=== PATIENT | female | born 1950 | race Caucasian/White ===

== ENCOUNTER 2020-04-07 01:23 | Emergency (ER) | payer MEDICARE, BC ==
[2020-04-07] MEDS ORDERED: Oxymetazoline 0.05% Nasal Spray 15 ML Bottle NAS ONE (01:39)
--- NOTE | 2020-04-07 01:50 | EDM.PDOC ---
ED HPI GENERAL MEDICAL PROBLEM - General Chief Complaint: ENT Problem Stated Complaint: BLOODY NOSE; STAGE 4 CANCER PT Time Seen by Provider: 04/07/20 01:24 Source of Information: Reports: Patient History Limitations: Reports: No Limitations - History of Present Illness INITIAL COMMENTS - FREE TEXT/NARRATIVE: 69-year-old female with a past medical history of COPD, CAD status post stenting , paroxysmal atrial fibrillation, stage IV lung cancer presenting with epistaxis. Patient has known severe thrombocytopenia and anemia and is scheduled to have platelet and packed red blood cell transfusions this morning at about 9 AM. This evening, she developed a left-sided nosebleed around 11 PM. She was unable to get it to stop with holding pressure, so she presents to the emergency department for further evaluation. No prior history of nosebleeds. Denies hemoptysis, gingival bleeding, hematemesis, hematuria, or rectal bleeding. At present she denies any shortness of breath or difficulty handling her secretions. - Related Data Allergies Allergy/AdvReac Type Severity Reaction Status Date / Time morphine AdvReac Intermediate Nausea and Verified 04/07/20 01:40 Vomiting oxycodone [Oxycodone] AdvReac Intermediate Nausea and Verified 04/07/20 01:40 Vomiting Quiana Anesthesia Allergy Vomiting Uncoded 04/07/20 01:40 Home Meds: Home Meds amLODIPine [Norvasc] 1 tab PO BEDTIME 07/24/14 [History] Albuterol [Proair HFA] 2 inh INH ASDIRECTED PRN 09/11/14 [History] Dextromethorphan/guaiFENesin [Mucinex DM ER 600-30 MG] 1 tab PO DAILY 09/11/14 [ History] Ubidecarenone [Co Q-10] 1 tab PO DAILY 09/11/14 [History] Docusate Sodium [Colace] 100 mg PO BID #60 cap 09/15/14 [Rx] Ondansetron [Zofran] 4 mg PO Q8H #30 tab 09/15/14 [Rx] Ipratropium [Atrovent HFA] 1 puff INH TID 01/05/20 [History] Allopurinol [Zyloprim] 1 tab PO BID 04/07/20 [History] Budesonide/Formoterol Fumarate [Symbicort 80-4.5 MCG] 2 puff INH BID 04/07/20 [ History] Diphenhyd/Lidocaine/Nystatin [Magic Mouthwash] 1 dose PO ASDIRECTED PRN [History] Docusate Sodium [Colace] 1 cap PO BEDTIME 04/07/20 [History] Folic Acid 1 tab PO DAILY 04/07/20 [History] HYDROmorphone [Dilaudid] 1 tab PO ASDIRECTED PRN 04/07/20 [History] LORazepam [Ativan] 1 tab PO ASDIRECTED PRN 04/07/20 [History] Metoprolol Tartrate 75 mg PO DAILY 04/07/20 [History] Nystatin 4,000 units PO ASDIRECTED PRN 04/07/20 [History] Omeprazole 20 mg PO DAILY 04/07/20 [History] Vitamin B6-pyridOXINE 1 tab PO BEDTIME 04/07/20 [History] guaiFENesin/Dextromethorphan [Mucinex DM ER 1,200-60 MG] 1 tab PO ASDIRECTED 01/22 [History] Past Medical History Cardiovascular History: Reports: Hypertension, SC, Stents Respiratory History: 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, COPD Other Respiratory History: Stage IV lung cancer - Infectious Disease History Infectious Disease History: Reports: Measles, Mumps - Past Surgical History Cardiovascular Surgical History: Reports: Carotid Stents Respiratory Surgical History: Reports: None Musculoskeletal Surgical History: Reports: Hip Replacement, Knee Replacement, Shoulder Surgery Social & Family History - Family History Family Medical History: Unobtainable - Caffeine Use Caffeine Use: Reports: Coffee, Tea ED ROS ENT - Review of Systems Review Of Systems: See Below Constitutional: Denies: Fever HEENT: Reports: Nosebleed Respiratory: Denies: Shortness of Breath Cardiovascular: Denies: Chest Pain Endocrine: Reports: No Symptoms GI/Abdominal: Denies: Abdominal Pain : Denies: Hematuria Musculoskeletal: Denies: Back Pain Skin: Reports: Bruising Neurological: Denies: Headache Psychiatric: Reports: No Symptoms Hematologic/Lymphatic: Reports: No Symptoms Immunologic: Reports: No Symptoms ED EXAM, ENT - Physical Exam Exam: See Below Text/Narrative:: Vital signs reviewed. Nursing notes reviewed. Constitutional: Awake, alert, non-distressed. Head: Normocephalic, atraumatic. Eyes: EOMI, conjunctiva normal, no discharge, no scleral icterus. Ears, Nose, Throat: Oozing blood in left nare. External ears and ears normal, moist oral mucosa. Palatal petechiae and subungual ecchymosis noted. Cardiovascular: 2+ radial pulse, capillary refill less than 2 seconds. Pulmonary: normal work of breathing, no accessory muscle use. Abdomen/GI: Soft, nontender, nondistended, no guarding or rigidity, no masses. Musculoskeletal: No deformities. Integumentary: Appropriate color for ethnicity, warm, dry, no pallor or jaundice , no rash. Neurologic: Alert, answering questions appropriately, normal speech, no facial droop, moving all extremities well. Psychiatric: Appropriate mood and affect, normal thought process. ED ENT PROCEDURES - Epistaxis Procedure Indication: Epistaxis Recent anticoagulants/antiplatlets: No Uncontrolled HTN: No Recent septal/nasal surgery: No Site of bleeding: Left Nare Clearing of clots: Patient Blew Nose Topical Meds: Other (Oxymetazoline) Ice pack to area: No Complications: No Complication Description: Instructed patient to blow nose to expel clots. Nasal oxymetazoline was instilled in both nares, then a nasal clamp was applied with hemostasis achieved. Course - Vital Signs Text/Narrative:: Patient [hemodynamically stable, afebrile], well-appearing, looks nontoxic. Differential diagnosis includes but is not limited to: Thrombocytopenia, anemia , sphenopalatine artery bleed, anterior epistaxis, digital trauma, etc. CBC performed from this morning shows a white blood cell count of 1.37, hemoglobin 7.8, platelet count of 9000. She is hemodynamically stable and her epistaxis seemed fairly minor, so we did not repeat these labs this morning. Patient has a slow amount of residual epistaxis on examination. She was instructed to blow out the clots in her nose, then nasal oxymetazoline was instilled in both nostrils and a foam nasal clamp was applied with adequate hemostasis. She was monitored for approximately 30 minutes after this and did not have recurrence of epistaxis. She is stable to discharge home and will follow up with her scheduled blood product transfusions this morning. Plan: Patient is stable to discharge home with outpatient primary care follow- up. Strict emergency department return precautions were provided, patient indicated understanding. All questions were answered prior to departure. Discharged in good condition. Last Recorded V/S: Last Vital Signs Temp 35.5 C L 04/07/20 01:39 Pulse 90 04/07/20 02:13 Resp 18 04/07/20 02:13 BP 125/65 04/07/20 02:13 Pulse Ox 93 L 04/07/20 02:13 - Orders/Labs/Meds Meds: Medications Discontinued Medications Generic Name Dose Route Start Last Admin [place] Name Cruz PRN Reason Stop Dose Admin Oxymetazoline HCl 1 ml 04/07/20 01:39 04/07/20 02:04 Afrin Original 0.05% Nasal [place] JERI 04/07/20 01:40 1 spray ONETIME ONE Administration Departure - Departure Time of Disposition: 02:14 Disposition: Home, Self-Care 01 Condition: Good Clinical Impression: Epistaxis, Thrombocytopenia Lung cancer Qualifiers: Laterality: unspecified laterality Lung location: unspecified part of lung Qualified Code(s): C34.90 - Malignant neoplasm of unspecified part of unspecified bronchus or lung - Discharge Information *PRESCRIPTION DRUG MONITORING PROGRAM REVIEWED*: Not Applicable *COPY OF PRESCRIPTION DRUG MONITORING REPORT IN PATIENT SIDNEY: Not Applicable Instructions: Nosebleed, Adult Referrals: Reed Núñez MD [Primary Care Provider] - 1 Week (As needed for follow-up of symptoms.) Forms: ED Department Discharge Additional Instructions: Thank you for choosing the [facility] emergency department in [place] for your medical needs today. It was a pleasure caring for you. You were seen in the emergency department for a nosebleed. We sprayed Afrin in your nostrils and then applied a nasal clamp and this seemed to help. If your nosebleed starts again after you go home, I recommend that you blow your nose deeply to try to get out any clots, then spray Afrin 3 times in each nostril, and then apply the nasal clamp. Wait at least 30 minutes before you remove the clamp to see if the bleeding has stopped. If this is not successful , I recommend that you return to the emergency department to be reevaluated. Please return the emergency department immediately if your symptoms worsen or if you feel worse. The following information is given to patients seen in the emergency department who are being discharged. This information is to outline your options for follow -up care. We provide all patients seen in our emergency department with a follow -up referral. The need for follow-up, as well as the timing and circumstances, are variable depending upon the specifics of your emergency department visit. If you don't have a primary care physician on staff, we will provide you with a referral. We always advise you to contact your personal physician following an emergency department visit to inform them of the circumstance of the visit and for follow-up with them and/or the need for any referrals to a consulting specialist. The emergency department will also refer you to a specialist when appropriate. This referral assures that you have the opportunity for follow-up care with a specialist. All of these measure are taken in an effort to provide you with optimal care, which includes your follow-up. Under all circumstances we always encourage you to contact your private physician who remains a resource for coordinating your care. When calling for follow-up care, please make the office aware that this follow-up is from your recent emergency room visit. If for any reason you are refused follow-up, please contact the [facility] Emergency Department at and asked to speak to the emergency department charge nurse. If you do not have a primary care physician that is caring for you, you can contact these clinics below to set up an appointment to establish care: [facility] - Primary Care [address] [place] [address] [place] [address] Sepsis Event Note - Focused Exam Vital Signs: Vital Signs Temp Pulse Resp BP Pulse Ox 04/07/20 02:13 90 18 125/65 93 L 04/07/20 01:39 35.5 C L 86 20 137/67 92 L Date Exam was Performed: 04/07/20 Time Exam was Performed: 02:19
== END 2020-04-07 02:20 | disposition home or self-care (01) ==
LOC: MW.ED 01:23
DX: R04.0 Epistaxis (principal); D69.6 Thrombocytopenia, unspecified; C34.90 Malignant neoplasm of unspecified part of unspecified bronchus or lung; I25.10 Atherosclerotic heart disease of native coronary artery without angina pectoris; I10 Essential (primary) hypertension; J44.9 Chronic obstructive pulmonary disease, unspecified; I25.2 Old myocardial infarction; Z88.5 Allergy status to narcotic agent; Z88.4 Allergy status to anesthetic agent; Z95.5 Presence of coronary angioplasty implant and graft; Z79.899 Other long term (current) drug therapy
CPT/HCPCS: 99283

== ENCOUNTER 2020-04-20 19:13 | Inpatient (IN) | payer MEDICARE, BC, OTHER ==
[2020-04-20] MEDS ORDERED: Albuterol/Ipratropium 3.0-0.5 MG/3 ML Neb Soln ONE (19:17)
[2020-04-20] MEDS ORDERED: Sodium Chloride 0.9% 10 ML Syringe FLUSH PRN (19:31)
[2020-04-20] MEDS ORDERED: Sodium Chloride 0.9% 2.5 ML Syringe FLUSH PRN (19:31)
[2020-04-20] MEDS ORDERED: methylPREDNISolone Sodium Succinate 125 MG/2 ML SDV IVPUSH ONE (19:34)
[2020-04-20 20:24] LABS: BLOOD UREA NITROGEN,BUN 22 mg/dL (7.0-18.0); CARBON DIOXIDE,CO2 24.9 mmol/L (21.0-32.0); CHLORIDE,CL 94 mmol/L (98-107); GLUCOSE RANDOM 100 mg/dL (74-106); SODIUM,NA 129 mmol/L (136-145)
--- NOTE | 2020-04-20 20:27 | CR ---
Chest: Portable view of the chest was obtained. Comparison: Prior chest x-ray of 03/17/20. Small right-sided pleural effusion is seen. Heart size is slightly more prominent than seen on prior study. Pulmonary vessels are slightly congested. Calcified breasts prosthesis are noted. Right-sided PICC line is seen with tip lying at the right atrial and superior vena cava junction. Prior cervical spine surgery is noted. Impression: 1. Findings suspicious for CHF. 2. Right-sided PICC line with tip lying at the right atrial and superior vena cava junction. 3. Other findings believed to be nonacute. Diagnostic code #3 This report was dictated in MDT
--- NOTE | 2020-04-20 20:57 | EDM.PDOC ---
ED HPI GENERAL MEDICAL PROBLEM - General Chief Complaint: Respiratory Problem Stated Complaint: LOW OXYGEN/LUNG CANCER Time Seen by Provider: 04/20/20 19:20 Source of Information: Reports: Patient History Limitations: Reports: No Limitations - History of Present Illness INITIAL COMMENTS - FREE TEXT/NARRATIVE: HISTORY AND PHYSICAL: History of present illness: This is a 69-year-old female whose has a history significant for COPD, atrial fibrillation, hypertension, lung cancer who is currently in the process of receiving chemotherapy and is scheduled for chemotherapy tomorrow, thrombocytopenia and anemia(requiring transfusion last transfusion was approximately 2 weeks ago) presents to the ER today secondary to subacute shortness of breath that started earlier this afternoon and is progressively getting worse. Family reports that the patient was in her usual state of health yesterday and this morning when she woke up. Patient reports that approximately 2 PM she started feeling increasing shortness of breath. Patient reports that the shortness of breath that she was experiencing today was extremely dissimilar to her prior episodes of COPD exacerbations. Patient denied any new chest discomfort or pressure (she reports that she has chronic left lateral chest wall pain since her diagnosis of cancer), patient denies any new cough (she reports she has a slight chronic cough secondary to her COPD that has not changed in frequency or sputum production), denies any fevers, shakes, chills, nausea, vomiting, diarrhea, dysuria, frequency, urgency, abdominal pain. Patient denies any dizziness or syncopal episodes. Patient reports that she is scheduled tomorrow to go see her doctor for reevaluation of her anemia and thrombocytopenia and then for her second round of chemotherapy. Patient denies any history of PE or DVT. Patient reports she has slight increased swelling of her lower extremities. Patient reports in the past that she was told that she had swelling in her legs that required diuretics however she reports that no one has told her in the past that she has congestive heart failure. In reviewing the patient's old records, patient does have an old BMP that was within normal limits but that was approximately 1 to 2 years ago. Review of systems: As per history of present illness and below otherwise all systems reviewed and negative. Past medical history: As per history of present illness and as reviewed below otherwise noncontributory. Surgical history: As per history of present illness and as reviewed below otherwise noncontributory. Social history: No reported history of drug or alcohol abuse. Family history: As per history of present illness and as reviewed below otherwise noncontributory. Physical exam: Constitutional: Patient is oriented to person, place, and time. Appears well- developed and well-nourished. No distress. HEENT: Moist mucous membranes Head: Normocephalic and atraumatic Eyes: Right eye exhibits no discharge. Left eye exhibits no discharge. No scleral icterus Neck: Normal range of motion. No tracheal deviation present. Cardiovascular: Tachycardic and irregularly irregular. Pulmonary: Patient extremely tachypneic and able to speak in 2-3 word sentences. Patient has diffuse expiratory next-door wheezing. No rales are appreciated. Patient has no JVD appreciable. Abdominal: No distention Musculoskeletal: Normal range of motion. Trace bipedal edema. Bruising to her left knee which family reports is old. Neurologic: Alert and oriented to person, place and time. Skin: [place], warm and dry. Mild diaphoresis upon presentation. Psychiatric: Normal mood and affect. Behavior is normal. Judgment and thought content normal. Nursing note and vital signs have been reviewed Diagnostics: Chest x-ray reveals enlarged heart with right pleural effusion and increased interstitial markings throughout her lungs consistent with likely congestive heart failure. Labs reviewed. Patient's BNP is elevated consistent with congestive heart failure/pulmonary edema. Patient has an EKG which reveals atrial fibrillation with RVR. No ST elevation NM. EKG: Fibrillation with rapid RVR at a heart rate of [address]-T wave abnormalities Normal axis No evidence of ST elevation NM As interpreted by ER physician: [employer]: Patient received 2 DuoNeb's in the ED with significant improvement in her symptoms. Patient reports she is still short of breath but it appears that her improvement may be related to being on 3 L of O2 nasal cannula. Patient reports that at home she does not utilize any supplemental oxygen. Given her A. fib and RVR, patient will be started on Cardizem with a Cardizem drip to control her rate. This might be because of her atrial fibrillation. Patient's troponin within normal limits. Patient also given Lasix 40 mg IV to initiate diuresis. Impression: Dyspnea most likely secondary to congestive heart failure/pulmonary edema which may be result of her atrial fibrillation. Plan: Patient will need admission for diuresis as well as rate control of her atrial fibrillation. Critical Care: The high probability of sudden, clinically significant deterioration in the patient's condition required the highest level of my preparedness to intervene urgently. The services I provided to this patient were to treat and/or prevent clinically significant deterioration. Services included the following: chart data review, reviewing nursing notes and/or old charts, documentation time, educational consultant collaboration regarding findings and treatment options, medication orders and management, direct patient care, vital sign assessments and ordering, interpreting and reviewing diagnostic studies/ lab tests. Aggregate critical care time includes only time during which I was engaged inwork directly related to the patient's care, as described above, whether at the bedside or elsewhere in the Emergency Department. It did not include time spent performing other reported procedures or the services of residents, students, nurses or physician assistants. Critical Care Time: 35 minutes Definitive disposition and diagnosis as appropriate pending reevaluation and review of above. - Related Data Allergies Allergy/AdvReac Type Severity Reaction Status Date / Time ibuprofen [From Advil] Allergy Vomiting Verified 04/20/20 20:17 ketorolac [From Toradol] Allergy Vomiting Verified 04/20/20 20:17 morphine AdvReac Intermediate Nausea and Verified 04/07/20 01:40 Vomiting oxycodone [Oxycodone] AdvReac Intermediate Nausea and Verified 04/07/20 01:40 Vomiting Quiana Anesthesia Allergy Vomiting Uncoded 04/07/20 01:40 Home Meds: Home Meds Albuterol [Proair HFA] 2 inh INH ASDIRECTED PRN 09/11/14 [History] Ubidecarenone [Co Q-10] 1 tab PO DAILY 09/11/14 [History] Ondansetron [Zofran] 4 mg PO Q8H #30 tab 09/15/14 [Rx] Ipratropium [Atrovent HFA] 1 puff INH TID 01/05/20 [History] Allopurinol [Zyloprim] 1 tab PO BID 04/07/20 [History] Budesonide/Formoterol Fumarate [Symbicort 80-4.5 MCG] 2 puff INH BID 04/07/20 [ History] Folic Acid 1 tab PO DAILY 04/07/20 [History] HYDROmorphone [Dilaudid] 1 tab PO ASDIRECTED PRN 04/07/20 [History] LORazepam [Ativan] 1 tab PO ASDIRECTED PRN 04/07/20 [History] Omeprazole 20 mg PO DAILY 04/07/20 [History] Vitamin B6-pyridOXINE 1 tab PO BEDTIME 04/07/20 [History] Diphenhyd/Lidocaine/Nystatin [Magic Mouthwash] 1 dose PO ASDIRECTED PRN [History] Ipratropium [Atrovent HFA] 2 puff INH QID 04/20/20 [History] Metoprolol Succinate 1 tab PO DAILY 04/20/20 [History] Metoprolol Tartrate [Lopressor] 25 mg PO DAILY 04/20/20 [History] Sennosides [Senna] 2 tab PO DAILY 04/20/20 [History] Sertraline [Zoloft] 1 tab PO DAILY 04/20/20 [History] Vit A/Vit C/Vit E/Zinc/Copper [Preservision] 1 tab PO DAILY 04/20/20 [History] amLODIPine [Norvasc] 2.5 mg PO ASDIRECTED PRN 04/20/20 [History] Past Medical History Cardiovascular History: Reports: Hypertension, NM, Stents Respiratory History: 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 ED EXAM, GENERAL - Physical Exam Exam: See Below Course - Vital Signs Last Recorded V/S: Last Vital Signs Temp 96.9 F 04/20/20 19:20 Pulse 91 04/20/20 19:20 Resp 22 H 04/20/20 19:20 BP 103/61 04/20/20 19:20 Pulse Ox 80 L 04/20/20 19:20 - Orders/Labs/Meds Orders: Active Orders 24 hr Category Date Time Status Patient Status [ADT] Routine ADT 04/20/20 21:05 Ordered EKG Documentation Completion [RC] AM Care 04/20/20 19:31 Active Ang Chest [CT] Stat Exams 04/20/20 21:04 Ordered Diltiazem 125 mg Med 04/20/20 21:15 Ordered Sodium Chloride 0.9% [Normal Saline] 100 ml IV NOW Sodium Chloride 0.9% [Saline Flush] Med 04/20/20 19:31 Active 10 ml FLUSH ASDIRECTED PRN Sodium Chloride 0.9% [Saline Flush] Med 04/20/20 19:31 Active 2.5 ml FLUSH ASDIRECTED PRN Saline Lock Insert [OM.PC] Stat Oth 04/20/20 19:32 Ordered Medication Orders Diltiazem HCl 125 mg/ Sodium (Chloride) 125 mls @ 5 mls/hr IV NOW HUNTER; Protocol Sodium Chloride (Saline Flush) 10 ml FLUSH ASDIRECTED PRN PRN Reason: Keep Vein Open Sodium Chloride (Saline Flush) 2.5 ml FLUSH ASDIRECTED PRN PRN Reason: Keep Vein Open Labs: Laboratory Tests 04/20/20 04/20/20 04/20/20 Range/Units 19:45 19:45 19:45 WBC 6.40 (4.0-11.0) K/uL RBC 3.00 L (4.30-5.90) M/uL Hgb 8.8 L (12.0-16.0) g/dL Hct 26.8 L (36.0-46.0) % MCV 89.3 (80.0-98.0) fL MCH 29.3 (27.0-32.0) pg MCHC 32.8 (31.0-37.0) g/dL RDW Std Deviation 47.1 (28.0-62.0) fl RDW Coeff of Shazia 16 H (11.0-15.0) % Plt Count 276 (150-400) K/uL MPV 9.20 (7.40-12.00) fL Neut % (Auto) 83.9 H (48.0-80.0) % Lymph % (Auto) 7.7 L (16.0-40.0) % [place] % (Auto) 7.8 (0.0-15.0) % Eos % (Auto) 0.0 (0.0-7.0) % Baso % (Auto) 0.6 (0.0-1.5) % Neut # (Auto) 5.4 (1.4-5.7) K/uL Lymph # (Auto) 0.5 L (0.6-2.4) K/uL [place] # (Auto) 0.5 (0.0-0.8) K/uL Eos # (Auto) 0.0 (0.0-0.7) K/uL Baso # (Auto) 0.0 (0.0-0.1) K/uL Nucleated RBC % 0.2 /100WBC Nucleated RBCs # 0 K/uL Sodium 129 L (136-145) mmol/L Potassium 4.0 (3.5-5.1) mmol/L Chloride 94 L (98-107) mmol/L Carbon Dioxide 24.9 (21.0-32.0) mmol/L BUN 22 H (7.0-18.0) mg/dL Creatinine 1.0 (0.6-1.0) mg/dL Est Cr Clr Drug Dosing 53.56 mL/min Estimated GFR (MDRD) 55.0 ml/min Glucose 100 (74-106) mg/dL Calcium 8.9 (8.5-10.1) mg/dL Total Bilirubin 0.4 (0.2-1.0) mg/dL AST 62 H (15-37) IU/L ALT 19 (14-63) IU/L Alkaline Phosphatase 80 (46-116) U/L Troponin I < 0.050 (0.000-0.056) ng/mL B-Natriuretic Peptide 706 H (<100) PG/ML Total Protein 7.3 (6.4-8.2) g/dL Albumin 2.4 L (3.4-5.0) g/dL Globulin 4.9 H (2.6-4.0) g/dL Albumin/Globulin Ratio 0.5 L (0.9-1.6) SARS-CoV-2 RNA (RT-PCR) (NEGATIVE) 04/20/20 Range/Units 19:50 WBC (4.0-11.0) K/uL RBC (4.30-5.90) M/uL Hgb (12.0-16.0) g/dL Hct (36.0-46.0) % MCV (80.0-98.0) fL MCH (27.0-32.0) pg MCHC (31.0-37.0) g/dL RDW Std Deviation (28.0-62.0) fl RDW Coeff of Shazia (11.0-15.0) % Plt Count (150-400) K/uL MPV (7.40-12.00) fL Neut % (Auto) (48.0-80.0) % Lymph % (Auto) (16.0-40.0) % [place] % (Auto) (0.0-15.0) % Eos % (Auto) (0.0-7.0) % Baso % (Auto) (0.0-1.5) % Neut # (Auto) (1.4-5.7) K/uL Lymph # (Auto) (0.6-2.4) K/uL [place] # (Auto) (0.0-0.8) K/uL Eos # (Auto) (0.0-0.7) K/uL Baso # (Auto) (0.0-0.1) K/uL Nucleated RBC % /100WBC Nucleated RBCs # K/uL Sodium (136-145) mmol/L Potassium (3.5-5.1) mmol/L Chloride (98-107) mmol/L Carbon Dioxide (21.0-32.0) mmol/L BUN (7.0-18.0) mg/dL Creatinine (0.6-1.0) mg/dL Est Cr Clr Drug Dosing mL/min Estimated GFR (MDRD) ml/min Glucose (74-106) mg/dL Calcium (8.5-10.1) mg/dL Total Bilirubin (0.2-1.0) mg/dL AST (15-37) IU/L ALT (14-63) IU/L Alkaline Phosphatase (46-116) U/L Troponin I (0.000-0.056) ng/mL B-Natriuretic Peptide (<100) PG/ML Total Protein (6.4-8.2) g/dL Albumin (3.4-5.0) g/dL Globulin (2.6-4.0) g/dL Albumin/Globulin Ratio (0.9-1.6) SARS-CoV-2 RNA (RT-PCR) NEGATIVE (NEGATIVE) Meds: Medications Generic Name Dose Route Start Last Admin Trade Name Freq PRN Reason Stop Dose Admin Diltiazem HCl 125 mg/ Sodium 125 mls @ 5 mls/hr 04/20/20 21:15 Chloride IV NOW HUNTER Protocol Sodium Chloride 10 ml 04/20/20 19:31 Saline Flush FLUSH ASDIRECTED PRN Keep Vein Open Sodium Chloride 2.5 ml 04/20/20 19:31 Saline Flush FLUSH ASDIRECTED PRN Keep Vein Open Discontinued Medications Generic Name Dose Route Start Last Admin Trade Name Freq PRN Reason Stop Dose Admin Albuterol/Ipratropium Confirm 04/20/20 19:17 04/20/20 19:30 Duoneb 3.0-0.5 Mg/3 Ml Administered 04/20/20 19:18 9 ml Dose Administration 9 ml .ROUTE .STK-MED ONE Diltiazem HCl 20 mg 04/20/20 21:02 Diltiazem IVPUSH 04/20/20 21:03 ONETIME ONE Furosemide 40 mg 04/20/20 21:01 Lasix IVPUSH 04/20/20 21:02 NOW ONE Heparin Sodium (Porcine) 500 units 04/20/20 20:05 04/20/20 20:09 Heparin Lock Flush 100 Units/Ml FLUSH 04/20/20 20:06 500 units NOW STA Administration Heparin Sodium (Porcine) Confirm 04/20/20 20:07 Heparin Lock Flush 100 Units/Ml Administered 04/20/20 20:08 Dose 500 units .ROUTE .STK-MED ONE Methylprednisolone Sodium Succinate 125 mg 04/20/20 19:34 04/20/20 20:08 Solu-Medrol IVPUSH 04/20/20 19:35 125 mg ONETIME ONE Administration Departure - Departure Time of Disposition: 20:58 Disposition: Admitted As Inpatient 66 Condition: Fair Clinical Impression: Congestive heart failure, Atrial fibrillation with rapid ventricular response, Respiratory failure with hypoxia Lung cancer Qualifiers: Laterality: unspecified laterality Lung location: unspecified part of lung Qualified Code(s): C34.90 - Malignant neoplasm of unspecified part of unspecified bronchus or lung - Discharge Information *PRESCRIPTION DRUG MONITORING PROGRAM REVIEWED*: Not Applicable *COPY OF PRESCRIPTION DRUG MONITORING REPORT IN PATIENT SIDNEY: Not Applicable Referrals: Reed Núeñz MD [Primary Care Provider] - Forms: ED Department Discharge Sepsis Event Note (ED) - Evaluation Sepsis Screening Result: No Definite Risk - Focused Exam Vital Signs: Vital Signs Temp Pulse Resp BP Pulse Ox 04/20/20 19:20 96.9 F 91 22 H 103/61 80 L - My Orders Last 24 Hours: My Active Orders 04/20/20 19:31 EKG Documentation Completion [RC] AM Sodium Chloride 0.9% [Saline Flush] 10 ml FLUSH ASDIRECTED PRN Sodium Chloride 0.9% [Saline Flush] 2.5 ml FLUSH ASDIRECTED PRN 04/20/20 19:32 Saline Lock Insert [OM.PC] Stat 04/20/20 21:04 Ang Chest [CT] Stat 04/20/20 21:05 Patient Status [ADT] Routine 04/20/20 21:15 Diltiazem 125 mg Sodium Chloride 0.9% [Normal Saline] 100 ml IV NOW - Assessment/Plan Last 24 Hours: My Active Orders 04/20/20 19:31 EKG Documentation Completion [RC] AM Sodium Chloride 0.9% [Saline Flush] 10 ml FLUSH ASDIRECTED PRN Sodium Chloride 0.9% [Saline Flush] 2.5 ml FLUSH ASDIRECTED PRN 04/20/20 19:32 Saline Lock Insert [OM.PC] Stat 04/20/20 21:04 Ang Chest [CT] Stat 04/20/20 21:05 Patient Status [ADT] Routine 04/20/20 21:15 Diltiazem 125 mg Sodium Chloride 0.9% [Normal Saline] 100 ml IV NOW
[2020-04-20] MEDS ORDERED: Furosemide 40 MG/4 ML VIAL IVPUSH ONE (21:01)
[2020-04-20] MEDS ORDERED: Diltiazem 25 MG/5 ML SDV IVPUSH ONE (21:02)
[2020-04-20] MEDS ORDERED: Diltiazem 125 MG in Sodium Chloride 0.9% 100 ML IV SCH (21:15)
[2020-04-20] MEDS ORDERED: Enoxaparin 40 MG/0.4 ML Syringe SUBCUT SCH (22:00)
[2020-04-20] MEDS ORDERED: Diltiazem 100 MG in Sodium Chloride 0.9% 100 ML IV SCH (22:00)
[2020-04-20] MEDS ORDERED: HYDROmorphone 2 MG Tab PO PRN (22:03)
[2020-04-20] MEDS ORDERED: ALBUTEROL INH PRN (22:03)
--- NOTE | 2020-04-20 22:33 | CT ---
INDICATION: Shortness of breath, history of lung cancer, CHF, atrial fibrillation, respiratory failure COMPARISON: None TECHNIQUE: Contrast enhanced axial CT imaging through the chest, optimized for assessment of the pulmonary arterial tree. 90 mL Isovue 370 contrast agent was administered intravenously. Sagittal and coronal reconstructions are provided. FINDINGS: There is adequate opacification of the pulmonary arterial tree without evidence of thromboembolism. The main pulmonary artery is nondilated. The heart is non enlarged. There is a small pericardial effusion. There is normal caliber of the thoracic aorta. Atherosclerotic calcification is noted in the coronary arteries and thoracic aorta. There is extensive mediastinal, bilateral hilar, and bilateral axillary lymphadenopathy. Large lymph node in the pretracheal station measures 4.7 x 4.3 x 5.5 cm. There is a moderate-sized right pleural effusion. A 2.2 cm spiculated irregular nodular density is noted in the inferior right upper lobe. There is mild pulmonary edema. Moderate upper lobe predominant emphysematous changes are also present. Right upper extremity PICC is in place with catheter tip at the superior cavoatrial junction. The thoracic osseous structures are unremarkable. No significant abnormality is demonstrated in the visualized upper abdomen. IMPRESSION: 1. No evidence of pulmonary thromboembolism. 2. Mild pulmonary edema, moderate size right pleural effusion, and small pericardial effusion. 3. Spiculated right upper lobe nodule and extensive mediastinal, hilar, and axillary lymphadenopathy presumably relating to patient`s known malignancy. Please note that all CT scans at this facility use dose modulation, iterative reconstruction, and/or weight-based dosing when appropriate to reduce radiation dose to as low as reasonably achievable. Dictated by Gwendolyn Aguirre MD @ Apr 20 2020 10:22PM Signed by Dr. Gwendolyn Aguirre @ Apr 20 2020 10:32PM
[2020-04-20] MEDS ORDERED: Magnesium Sulfate/Water 2 GM in Premix Bag 1 BAG IV ONE (23:39)
--- NOTE | 2020-04-21 00:05 | PN ---
THC Physician - Brief Progress [id number]/16/2020 23:57[facility] Bubba richardson, DEBBI - MAHAMEDN ([facility] - JOSEMANUEL DUMASDate of Service 04/20/2020 23:57HPI/Ev ents of Note Case discussed with RN. 69 year old F wihh lung CA- awaiting path result, has history o f afib, admitted with afib/SOB. Treated with bronchodilators/steroids/lasix/supplemental O2 as well as cardizem drip and continues on eliquis.130s 121/61 92%Recs include: hemodynamic monitoring, we an cardizem to HR < 100, eliquis, consider echo when available, supplemental O2 PRN, bronchodilators/ steroids, GI and DVT prophylaxis, monitor temps and WBCs, replace lytes as needed, careful slow corre ction of Na over 24 hours, glycemic monitoring, would check TFTs if not done yet, neuro checks, pain control.Interventions Minor-Communication with other healthcare providers and/or family
[2020-04-21] MEDS: LORazepam 1 MG Tab PO PRN (00:13)
[2020-04-21] MEDS: Albuterol/Ipratropium 3.0-0.5 MG/3 ML Neb Soln NEB PRN ×2 (00:13→10:52)
--- NOTE | 2020-04-21 00:17 | PCM.HP.2 ---
H&P History of Present Illness - General Date of Service: 04/20/20 Admit Problem/Dx: Admission Diagnosis/Problem Admission Diagnosis/Problem Atrial fibrillation with rapid ventricular response - History of Present Illness Initial Comments - Free Text/Narative: This is a 69-year-old female whose has a history significant for COPD, atrial fibrillation, hypertension, recent diagnosis of lung cancer on chemotherapy ,thrombocytopenia and anemia(requiring transfusion last transfusion was approximately 2 weeks ago) last chemo was 3 weeks back at [facility] and is scheduled for chemotherapy tomorrow, presents to the ER today secondary to subacute shortness of breath that started earlier this afternoon around 2 pm and has been progressively getting worse. Daughter at bedside reports that the patient was in her usual state of health yesterday, today approximately 2 PM she started feeling increasing shortness of breath unlike her COPD exacerbations in past. Patient denied any new chest discomfort or pressure, patient denies any new cough denies any fevers, shakes, chills, nausea, vomiting, diarrhea, dysuria, frequency, urgency, abdominal pain, bloody stools or bloody urine. Patient reports that she is scheduled tomorrow to go see her doctor for reevaluation of her anemia and thrombocytopenia and then for her second round of chemotherapy. Her Blood thinners were held upon dc due to her low platelets. In the ER she was found to have slight fluid on exam and on chest xray. BNP was elevated, Troponin was negative. She was also found to have Afib with RVR (HR in 120- 130s), was started on Cardizem gtt , started on NC oxygen and admitted to ICU for further care. CT angio was done which ruled out PE but showed moderate right pleural effusion and mild pericardial effusion. Left Flank Pain Score (Numeric/FACES): 4 - Related Data Allergies/Adverse Reactions: Allergies Allergy/AdvReac Type Severity Reaction Status Date / Time ibuprofen [From Advil] Allergy Vomiting Verified 04/21/20 17:20 ketorolac [From Toradol] Allergy Vomiting Verified 04/21/20 17:20 morphine AdvReac Intermediate Nausea and Verified 04/21/20 17:20 Vomiting oxycodone [Oxycodone] AdvReac Intermediate Nausea and Verified 04/21/20 17:20 Vomiting Quiana Anesthesia Allergy Vomiting Uncoded 04/07/20 01:40 Home Medications: Home Meds Albuterol [Proair HFA] 2 inh INH QID PRN 09/11/14 [History] Ubidecarenone [Co Q-10] 1 tab PO DAILY 09/11/14 [History] Ondansetron [Zofran] 4 mg PO Q8H #30 tab 09/15/14 [Rx] Allopurinol [Zyloprim] 300 mg PO BID 04/07/20 [History] Budesonide/Formoterol Fumarate [Symbicort 80-4.5 MCG] 2 puff INH BID 04/07/20 [History] Folic Acid 1 mg PO DAILY 04/07/20 [History] HYDROmorphone [Dilaudid] 2 mg PO Q4H PRN 04/07/20 [History] LORazepam [Ativan] 1 tab PO DAILY PRN 04/07/20 [History] Omeprazole 20 mg PO DAILY 04/07/20 [History] Vitamin B6-pyridOXINE 1 tab PO BEDTIME 04/07/20 [History] Diphenhyd/Lidocaine/Nystatin [Magic Mouthwash] 1 dose PO Q4H PRN 04/20/20 [History] Ipratropium [Atrovent HFA] 2 puff INH QID 04/20/20 [History] Metoprolol Tartrate [Lopressor] 75 mg PO DAILY 04/20/20 [History] Sennosides [Senna] 2 tab PO BEDTIME 04/20/20 [History] Sertraline [Zoloft] 50 mg PO BEDTIME 04/20/20 [History] Vit A/Vit C/Vit E/Zinc/Copper [Preservision] 1 tab PO BEDTIME 04/20/20 [History] amLODIPine [Norvasc] 2.5 mg PO BEDTIME 04/20/20 [History] Acetaminophen [Tylenol Extra Strength] 500 mg PO Q3H PRN 04/21/20 [History] Docusate Sodium [Colace] 100 mg PO BEDTIME 04/21/20 [History] Albuterol/Ipratropium [DuoNeb 3.0-0.5 MG/3 ML] 3 ml NEB Q4HRRT neb 04/22/20 [Rx] Apixaban [Eliquis] 5 mg PO BID tablet 04/22/20 [Rx] Furosemide [Lasix] 40 mg IVPUSH BIDDIURETIC vial 04/22/20 [Rx] Lidocaine 5% [Lidoderm 5%] 700 mg TOP Q24H patch 04/22/20 [Rx] Metoprolol Succinate [Toprol XL 100mg] 100 mg PO DAILY tab.er 04/22/20 [Rx] Ondansetron [Zofran] 4 mg IVPUSH Q4H PRN vial 04/22/20 [Rx] Remove Patch 1 ea TRDERM Q24H each 04/22/20 [Rx] Sodium Chloride 0.9% [Saline Flush] 2.5 ml FLUSH ASDIRECTED PRN syringe 04/22/20 [Rx] Sodium Chloride 0.9% [Saline Flush] 10 ml FLUSH ASDIRECTED PRN syringe 04/22/20 [Rx] Past Medical History HEENT History: Reports: Cataract, Impaired Vision, Macular Degeneration Cardiovascular History: Reports: Afib, Hypertension, NC, SOB on Exertion, Stents Respiratory History: 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, COPD Other Respiratory History: Stage IV lung cancer-- chemo Gastrointestinal History: Reports: GERD Genitourinary History: Reports: None [employer] History: Reports: Ectopic Neurological History: Reports: None Psychiatric History: Reports: Anxiety, Other (See Below) Other Psychiatric History: takes Endocrine/Metabolic History: Reports: Obesity/BMI 30+ Hematologic History: Reports: Anemia, Blood Transfusion(s), Idiopathic Thrombocytopenia Immunologic History: Reports: None Oncologic (Cancer) History: Reports: Lung Dermatologic History: Reports: None - Infectious Disease History Infectious Disease History: Reports: Measles, Mumps - Past Surgical History HEENT Surgical History: Reports: None Cardiovascular Surgical History: Reports: Carotid Stents Other Cardiovascular Surgeries/Procedures: 2 stents- 2006 Respiratory Surgical History: Reports: None GI Surgical History: Reports: Colonoscopy Female Surgical History: Reports: Dilitation & Evacuation, Other (See Below) Musculoskeletal Surgical History: Reports: Hip Replacement, Knee Replacement, Shoulder Surgery, Other (See Below) Other Musculoskeletal Surgeries/Procedures:: fusion of C6-7 Social & Family History - Family History Family Medical History: Unobtainable - Tobacco Use Smoking Status *Q: Former Smoker Years of Tobacco use: 53 Packs/Tins Daily: 2 Used Tobacco, but Quit: Yes Month/Year Tobacco Last Used: may 2020 Second Hand Smoke Exposure: No - Caffeine Use Caffeine Use: Reports: Coffee, Soda, Tea Caffeine Use Comment: drinking less- upset stomach - Recreational Drug Use Recreational Drug Use: No H&P Review of Systems - Review of Systems: Review Of Systems: See Below General: Reports: Fatigue. Denies: Fever, Chills, Malaise, Diaphoresis HEENT: Denies: Dysphasia, Ear Pain Pulmonary: Reports: Shortness of Breath. Denies: Sputum, Hemoptysis Cardiovascular: Reports: Dyspnea on Exertion. Denies: Chest Pain, Palpitations, Orthopnea, Lightheadedness Gastrointestinal: Denies: Abdominal Pain, Anorexia, Black Stool Genitourinary: Denies: Dysuria, Frequency, Burning Musculoskeletal: Denies: Neck Pain, Shoulder Pain, Arm Pain Skin: Denies: Cyanosis, Jaundice, Mottled Psychiatric: Denies: Confusion, Depression, Mood Lability, Homicidal Ideation, Hallucinations (Auditory) Neurological: Denies: Confusion, Dizziness, Headache Hematologic/Lymphatic: Reports: Anemia Exam - Exam Exam: See Below - Vital Signs Vital Signs: Last Vital Signs Temp 36.1 C 04/20/20 19: Pulse 91 04/20/20 19:20 Resp 22 H 04/20/20 19:20 BP 103/61 04/20/20 19:20 Pulse Ox 80 L 04/20/20 19:20 Weight: 66.769 kg - Exam General: Alert, Oriented HEENT: Conjunctiva Clear Neck: Supple, Trachea Midline Lungs: Normal Respiratory Effort, Crackles, Rales Cardiovascular: Normal S1, Normal S2, Irregular Rhythm, Tachycardia GI/Abdominal Exam: Normal Bowel Sounds, Soft, Non-Tender Back Exam: Normal Inspection. No: CVA Tenderness (L), CVA Tenderness (R) Extremities: Normal Inspection, Normal Range of Motion Peripheral Pulses: 3+: Dorsalis Pedis (L), Dorsalis Pedis (R) - Patient Data Lab Results Last 24 hrs: Laboratory Results - last 24 hr 04/20/20 04/20/20 04/20/20 Range/Units 19:45 19:45 19:45 WBC 6.40 (4.0-11.0) K/uL RBC 3.00 L (4.30-5.90) M/uL Hgb 8.8 L (12.0-16.0) g/dL Hct 26.8 L (36.0-46.0) % MCV 89.3 (80.0-98.0) fL MCH 29.3 (27.0-32.0) pg MCHC 32.8 (31.0-37.0) g/dL RDW Std Deviation 47.1 (28.0-62.0) fl RDW Coeff of Shazia 16 H (11.0-15.0) % Plt Count 276 (150-400) K/uL MPV 9.20 (7.40-12.00) fL Neut % (Auto) 83.9 H (48.0-80.0) % Lymph % (Auto) 7.7 L (16.0-40.0) % [place]ro % (Auto) 7.8 (0.0-15.0) % Eos % (Auto) 0.0 (0.0-7.0) % Baso % (Auto) 0.6 (0.0-1.5) % Neut # (Auto) 5.4 (1.4-5.7) K/uL Lymph # (Auto) 0.5 L (0.6-2.4) K/uL Tal[place]ferro # (Auto) 0.5 (0.0-0.8) K/uL Eos # (Auto) 0.0 (0.0-0.7) K/uL Baso # (Auto) 0.0 (0.0-0.1) K/uL Nucleated RBC % 0.2 /100WBC Nucleated RBCs # 0 K/uL Sodium 129 L (136-145) mmol/L Potassium 4.0 (3.5-5.1) mmol/L Chloride 94 L (98-107) mmol/L Carbon Dioxide 24.9 (21.0-32.0) mmol/L BUN 22 H (7.0-18.0) mg/dL Creatinine 1.0 (0.6-1.0) mg/dL Est Cr Clr Drug Dosing 53.56 mL/min Estimated GFR (MDRD) 55.0 ml/min Glucose 100 (74-106) mg/dL Calcium 8.9 (8.5-10.1) mg/dL Phosphorus (2.6-4.7) mg/dL Magnesium (1.8-2.4) mg/dL Total Bilirubin 0.4 (0.2-1.0) mg/dL AST 62 H (15-37) IU/L ALT 19 (14-63) IU/L Alkaline Phosphatase 80 (46-116) U/L Troponin I < 0.050 (0.000-0.056) ng/mL B-Natriuretic Peptide 706 H (<100) PG/ML Total Protein 7.3 (6.4-8.2) g/dL Albumin 2.4 L (3.4-5.0) g/dL Globulin 4.9 H (2.6-4.0) g/dL Albumin/Globulin Ratio 0.5 L (0.9-1.6) SARS-CoV-2 RNA (RT-PCR) (NEGATIVE) 04/20/20 04/20/20 Range/Units 19:45 19:50 WBC (4.0-11.0) K/uL RBC (4.30-5.90) M/uL Hgb (12.0-16.0) g/dL Hct (36.0-46.0) % MCV (80.0-98.0) fL MCH (27.0-32.0) pg MCHC (31.0-37.0) g/dL RDW Std Deviation (28.0-62.0) fl RDW Coeff of Shazia (11.0-15.0) % Plt Count (150-400) K/uL MPV (7.40-12.00) fL Neut % (Auto) (48.0-80.0) % Lymph % (Auto) (16.0-40.0) % Tal[place]ferro % (Auto) (0.0-15.0) % Eos % (Auto) (0.0-7.0) % Baso % (Auto) (0.0-1.5) % Neut # (Auto) (1.4-5.7) K/uL Lymph # (Auto) (0.6-2.4) K/uL Tal[place]ferro # (Auto) (0.0-0.8) K/uL Eos # (Auto) (0.0-0.7) K/uL Baso # (Auto) (0.0-0.1) K/uL Nucleated RBC % /100WBC Nucleated RBCs # K/uL Sodium (136-145) mmol/L Potassium (3.5-5.1) mmol/L Chloride (98-107) mmol/L Carbon Dioxide (21.0-32.0) mmol/L BUN (7.0-18.0) mg/dL Creatinine (0.6-1.0) mg/dL Est Cr Clr Drug Dosing mL/min Estimated GFR (MDRD) ml/min Glucose (74-106) mg/dL Calcium (8.5-10.1) mg/dL Phosphorus 4.7 (2.6-4.7) mg/dL Magnesium 1.6 L (1.8-2.4) mg/dL Total Bilirubin (0.2-1.0) mg/dL AST (15-37) IU/L ALT (14-63) IU/L Alkaline Phosphatase (46-116) U/L Troponin I (0.000-0.056) ng/mL B-Natriuretic Peptide (<100) PG/ML Total Protein (6.4-8.2) g/dL Albumin (3.4-5.0) g/dL Globulin (2.6-4.0) g/dL Albumin/Globulin Ratio (0.9-1.6) SARS-CoV-2 RNA (RT-PCR) NEGATIVE (NEGATIVE) Result Diagrams: 04/22/20 05:52 04/22/20 05:52 Sepsis Event Note - Evaluation Sepsis Screening Result: No Definite Risk - Focused Exam Vital Signs: Vital Signs Temp Pulse Resp BP Pulse Ox 04/20/20 19:20 36.1 C 91 22 H 103/61 80 L Date Exam was Performed: 04/28/20 Time Exam was Performed: 20:10 - Problem List (1) Atrial fibrillation with rapid ventricular response SNOMED Code(s): 609490576447914 ICD Code: I48.91 - UNSPECIFIED ATRIAL FIBRILLATION Status: Acute (2) Congestive heart failure SNOMED Code(s): 17150390 ICD Code: I50.9 - HEART FAILURE, UNSPECIFIED Status: Acute (3) Lung cancer SNOMED Code(s): 121050005 ICD Code: C34.90 - MALIGNANT NEOPLASM OF UNSP PART OF UNSP BRONCHUS OR LUNG Status: Acute Qualifiers: Laterality: unspecified laterality Lung location: unspecified part of lung Qualified Code(s): C34.90 - Malignant neoplasm of unspecified part of unspecified bronchus or lung (4) Respiratory failure with hypoxia SNOMED Code(s): 34272762045488788 ICD Code: J96.91 - RESPIRATORY FAILURE, UNSPECIFIED WITH HYPOXIA Status: Acute (5) COPD (chronic obstructive pulmonary disease) SNOMED Code(s): 25307806 ICD Code: J44.9 - CHRONIC OBSTRUCTIVE PULMONARY DISEASE, UNSPECIFIED Status: Acute (6) PICC (peripherally inserted central catheter) in place SNOMED Code(s): 1507967752412, 8803431241218 ICD Code: Z45.2 - ENCOUNTER FOR ADJUSTMENT AND MANAGEMENT OF VAD Status: Acute (7) Hypomagnesemia SNOMED Code(s): 983227117 ICD Code: E83.42 - HYPOMAGNESEMIA Status: Acute Problem List Initiated/Reviewed/Updated: Yes Orders Last 24hrs: Active Orders 24 hr Category Date Time Status Patient Status [ADT] Routine ADT 04/20/20 21:05 Active Ambulate [RC] ASDIRECTED Care 04/20/20 21:56 Active Oxygen Therapy [RC] PRN Care 04/20/20 21:57 Active Pulse Oximetry [RC] CONTINUOUS Care 04/20/20 21:57 Active RT Aerosol Therapy [RC] ASDIRECTED Care 04/20/20 21:59 Active VTE/DVT Education [RC] PER UNIT ROUTINE Care 04/20/20 21:57 Active Vital Signs [RC] Q1H Care 04/20/20 21:56 Active Heart Healthy Diet [DIET] Diet 04/20/20 Dinner Active Echo Comp wo Cont [US] Stat Exams 04/20/20 22:01 Ordered BMP [BASIC METABOLIC PANEL,BMP] [CHEM] AM Lab 04/21/20 05:11 Ordered BMP [BASIC METABOLIC PANEL,BMP] [CHEM] Routine Lab 04/21/20 00:03 Ordered CBC WITH AUTO DIFF [HEME] AM Lab 04/21/20 05:11 Ordered MAGNESIUM [CHEM] AM Lab 04/21/20 05:11 Ordered PHOSPHORUS [CHEM] AM Lab 04/21/20 05:11 Ordered Albuterol [Proair HFA] Med 04/20/20 22:03 Active 2 inh INH ASDIRECTED PRN Albuterol/Ipratropium [DuoNeb 3.0-0.5 MG/3 ML] Med 04/20/20 21:56 Active 3 ml NEB Q4HRRT PRN Apixaban [Eliquis] Med 04/21/20 00:15 Ordered 5 mg PO BID Beta-Carotene(A) w/C & E/Min [Prosight] Med 04/21/20 09:00 Active 1 tab PO DAILY Diltiazem [Cardizem] 100 mg Med 04/20/20 22:00 Active Sodium Chloride 0.9% [Normal Saline] 100 ml IV ASDIRECTED Folic Acid Med 04/21/20 09:00 Active 1 mg PO DAILY Furosemide [Lasix] Med 04/21/20 09:00 Active 40 mg IVPUSH BID HYDROmorphone [Dilaudid] Med 04/20/20 23:57 Active 2 mg PO Q4H PRN LORazepam [Ativan] Med 04/20/20 22:03 Active 1 mg PO ASDIRECTED PRN Magnesium Sulfate/Water [Magnesium Sulfate in Water Med 04/20/20 23:39 Active Premix] 2 gm Premix Bag 1 bag IV ONETIME Metoprolol Succinate [Toprol XL] Med 04/21/20 09:00 Active 50 mg PO DAILY Omeprazole Med 04/21/20 09:00 Active 20 mg PO DAILY Ondansetron [Zofran] Med 04/20/20 21:56 Active 4 mg IVPUSH Q4H PRN Sennosides [Senna] Med 04/21/20 09:00 Active 17.2 mg PO DAILY Sertraline [Zoloft] Med 04/21/20 09:00 Active 50 mg PO DAILY Sodium Chloride 0.9% [Saline Flush] Med 04/20/20 19:31 Active 10 ml FLUSH ASDIRECTED PRN Sodium Chloride 0.9% [Saline Flush] Med 04/20/20 19:31 Active 2.5 ml FLUSH ASDIRECTED PRN Vitamin B6-pyridOXINE Med 04/21/20 21:00 Active 1 tab PO BEDTIME allopurinoL [Zyloprim] Med 04/21/20 09:00 Active 300 mg PO BID Saline Lock Insert [OM.PC] Stat Oth 04/20/20 19:32 Ordered Medication Orders Albuterol/Ipratropium (Duoneb 3.0-0.5 Mg/3 Ml) 3 ml NEB Q4HRRT PRN PRN Reason: Shortness Of Breath/wheezing Allopurinol (Zyloprim) 300 mg PO BID HUNTER Apixaban (Eliquis) 5 mg PO BID HUNTER Folic Acid (Folic Acid) 1 mg PO DAILY HUNTRE Furosemide (Lasix) 40 mg IVPUSH BID HUNTER Hydromorphone HCl (Dilaudid) 2 mg PO Q4H PRN PRN Reason: Pain Diltiazem HCl 100 mg/ Sodium (Chloride) 100 mls @ 4 mls/hr IV ASDIRECTED HUNTER; P rotocol Last Admin: 04/20/20 22:10 Dose: 5 mls/hr, 5 mls/hr Magnesium Sulfate 2 gm/ Premix 50 mls @ 50 mls/hr IV ONETIME ONE Stop: 04/21/20 00:38 Lorazepam (Ativan) 1 mg PO ASDIRECTED PRN PRN Reason: Anxiety Metoprolol Succinate (Toprol Xl) 50 mg PO DAILY [facility] Multivitamins/Minerals (Prosight) 1 tab PO DAILY [facility] Non-Formulary Medication (Albuterol [Proair Hfa]) 2 inh INH ASDIRECTED PRN PRN Reason: Shortness of Breath Non-Formulary Medication (Vitamin B6-Pyridoxine) 1 tab PO BEDTIME HUNTER Omeprazole (Omeprazole) 20 mg PO DAILY HUNTER Ondansetron HCl (Zofran) 4 mg IVPUSH Q4H PRN PRN Reason: Nausea/Vomiting Senna (Senna) 17.2 mg PO DAILY HUNTER Sertraline HCl (Zoloft) 50 mg PO DAILY [facility] Sodium Chloride (Saline Flush) 10 ml FLUSH ASDIRECTED PRN PRN Reason: Keep Vein Open Sodium Chloride (Saline Flush) 2.5 ml FLUSH ASDIRECTED PRN PRN Reason: Keep Vein Open Assessment/Plan Comment:: 69 y/o F admitted for Afib RVR and possible CHF exacerbation CT angio ruled out PE, showed right sided pleural effusion Troponin was negative, no chest pain Will admit to ICU start oxygenation via MT Start Cardizem gtt for HR control Monitor CBC daily, Hb stable, platelets are wnl resume Anticoagulation, were held upon dc due to low thrombocytopenia IV Lasix 40 mg BID for fluid overload Obtain 2D ECHO Monitor vitals closely Replete electrolytes as needed Monitor Na closely Will contact Oncologist tomorrow, chemo will be delayed
[2020-04-21] MEDS ORDERED: Albuterol 8 GM Inhaler INH PRN (00:29)
[2020-04-21] MEDS: Apixaban 5 MG Tab PO SCH ×3 (00:36→21:03)
[2020-04-21 00:37] LABS: CARBON DIOXIDE,CO2 26.4 mmol/L (21.0-32.0); POTASSIUM,K 4.1 mmol/L (3.5-5.1)
[2020-04-21] MEDS ORDERED: Amiodarone In Dextrose,Iso-Osm 150 MG in Premix Bag 1 BAG IV ONE ×2 (02:39)
--- NOTE | 2020-04-21 07:25 | PN ---
THC Physician - Brief Progress [id number]/17/2020 02:37[facility] Bubba richardson, DEBBI - KYM ([facility]ITALKinjal) - JOSEMANUEL DUMASDate of Service 04/21/2020 02:37HPI/Ev ents of Note Discussedwith RN: Pt remains tachy despite high dose cardizem drip.Will start amio bolus and drip, and titrate off cardizem.Interventions Minor-Communication with other healthcare providers and/or family
[2020-04-21 08:07] LABS: CARBON DIOXIDE,CO2 24.3 mmol/L (21.0-32.0); POTASSIUM,K 4.2 mmol/L (3.5-5.1)
[2020-04-21] MEDS ORDERED: ALLOPURINOL PO SCH (09:00)
[2020-04-21] MEDS ORDERED: COPPER PO SCH (09:00)
[2020-04-21] MEDS ORDERED: Metoprolol Succinate 50 MG Tab.ER PO SCH ×2 (09:00)
[2020-04-21] MEDS ORDERED: ZINC PO SCH (09:00)
[2020-04-21] MEDS ORDERED: Non-Formulary Medication 1 Each (Sennosides [Senna] 2 TAB) PO SCH (09:00)
[2020-04-21] MEDS ORDERED: VIT E PO SCH (09:00)
[2020-04-21] MEDS ORDERED: VIT C PO SCH (09:00)
[2020-04-21] MEDS ORDERED: VIT A PO SCH (09:00)
[2020-04-21] MEDS: Omeprazole 20 MG Cap.CR PO SCH (09:20)
[2020-04-21] MEDS: Furosemide 40 MG/4 ML VIAL IVPUSH SCH ×2 (09:20→14:49)
[2020-04-21] MEDS: Folic Acid 1 MG Tab PO SCH (09:20)
[2020-04-21] MEDS: Beta-Carotene (Vitamin A) w/Vitamin C & E plus Minerals Tab PO SCH (09:20)
[2020-04-21] MEDS: Allopurinol 300 MG Tab PO SCH ×2 (09:20→21:03)
[2020-04-21] MEDS ORDERED: Digoxin 500 MCG/2 ML Amp IVPUSH ONE (09:56)
[2020-04-21] MEDS ORDERED: Metoprolol Succinate 25 MG Tab.ER PO SCH (10:15)
[2020-04-21] MEDS: Sertraline 50 MG Tab PO SCH (10:52)
[2020-04-21] MEDS: Sennosides 8.6 MG Tab PO SCH (10:53)
[2020-04-21] MEDS: HYDROmorphone 2 MG Tab PO PRN (11:27)
[2020-04-21] MEDS: Ondansetron 4 MG/2 ML SDV IVPUSH PRN (11:29)
[2020-04-21] MEDS: Albuterol/Ipratropium 3.0-0.5 MG/3 ML Neb Soln NEB SCH ×3 (14:23→21:36)
[2020-04-21] MEDS: Digoxin 500 MCG/2 ML Amp IVPUSH SCH ×2 (16:40→21:59)
--- NOTE | 2020-04-21 18:12 | PCM.PN ---
- General Info Date of Service: 04/21/20 Admission Dx/Problem (Free Text): Admission Diagnosis/Problem Admission Diagnosis/Problem Atrial fibrillation with rapid ventricular response Subjective Update: see at bedside, no acute distress. - Review of Systems General: Reports: Weakness, Fatigue. Denies: Fever, Malaise Pulmonary: Reports: Shortness of Breath. Denies: Pleuritic Chest Pain, Cough, Sputum Cardiovascular: Reports: Dyspnea on Exertion, Orthopnea. Denies: Chest Pain, Palpitations Gastrointestinal: Denies: Abdominal Pain, Constipation, Decreased Appetite Genitourinary: Denies: Dysuria, Frequency, Burning Musculoskeletal: Denies: Neck Pain, Shoulder Pain, Arm Pain Skin: Denies: Cyanosis, Jaundice, Mottled Neurological: Denies: Confusion, Dizziness, Headache - Patient Data Vitals - Most Recent: Last Vital Signs Temp 36.8 C 04/21/20 16:00 Pulse 88 04/21/20 16:40 Resp 16 04/21/20 17:00 BP 113/62 04/21/20 17:00 Pulse Ox 93 L 04/21/20 17:00 Weight - Most Recent: 66.769 kg I&O - Last 24 Hours: Intake & Output 04/21/20 04/21/20 04/21/20 06:59 14:59 22:59 Intake Total 190 533 375 Output Total 650 1050 Balance 190 117 675 Lab Results Last 24 Hours: Laboratory Results - last 24 hr 04/20/20 04/20/20 04/20/20 Range/Units 19:45 19:45 19:45 WBC 6.40 (4.0-11.0) K/uL RBC 3.00 L (4.30-5.90) M/uL Hgb 8.8 L (12.0-16.0) g/dL Hct 26.8 L (36.0-46.0) % MCV 89.3 (80.0-98.0) fL MCH 29.3 (27.0-32.0) pg MCHC 32.8 (31.0-37.0) g/dL RDW Std Deviation 47.1 (28.0-62.0) fl RDW Coeff of Shazia 16 H (11.0-15.0) % Plt Count 276 (150-400) K/uL MPV 9.20 (7.40-12.00) fL Neut % (Auto) 83.9 H (48.0-80.0) % Lymph % (Auto) 7.7 L (16.0-40.0) % [place] % (Auto) 7.8 (0.0-15.0) % Eos % (Auto) 0.0 (0.0-7.0) % Baso % (Auto) 0.6 (0.0-1.5) % Neut # (Auto) 5.4 (1.4-5.7) K/uL Lymph # (Auto) 0.5 L (0.6-2.4) K/uL [place] # (Auto) 0.5 (0.0-0.8) K/uL Eos # (Auto) 0.0 (0.0-0.7) K/uL Baso # (Auto) 0.0 (0.0-0.1) K/uL Nucleated RBC % 0.2 /100WBC Nucleated RBCs # 0 K/uL Sodium 129 L (136-145) mmol/L Potassium 4.0 (3.5-5.1) mmol/L Chloride 94 L (98-107) mmol/L Carbon Dioxide 24.9 (21.0-32.0) mmol/L BUN 22 H (7.0-18.0) mg/dL Creatinine 1.0 (0.6-1.0) mg/dL Est Cr Clr Drug Dosing 53.56 mL/min Estimated GFR (MDRD) 55.0 ml/min Glucose 100 (74-106) mg/dL Calcium 8.9 (8.5-10.1) mg/dL Phosphorus (2.6-4.7) mg/dL Magnesium (1.8-2.4) mg/dL Total Bilirubin 0.4 (0.2-1.0) mg/dL AST 62 H (15-37) IU/L ALT 19 (14-63) IU/L Alkaline Phosphatase 80 (46-116) U/L Troponin I < 0.050 (0.000-0.056) ng/mL B-Natriuretic Peptide 706 H (<100) PG/ML Total Protein 7.3 (6.4-8.2) g/dL Albumin 2.4 L (3.4-5.0) g/dL Globulin 4.9 H (2.6-4.0) g/dL Albumin/Globulin Ratio 0.5 L (0.9-1.6) TSH 3rd Generation (0.36-3.74) uIU/mL SARS-CoV-2 RNA (RT-PCR) (NEGATIVE) Blood Type Antibody Screen Crossmatch 04/20/20 04/20/20 04/21/20 Range/Units 19:45 19:50 00:15 WBC (4.0-11.0) K/uL RBC (4.30-5.90) M/uL Hgb (12.0-16.0) g/dL Hct (36.0-46.0) % MCV (80.0-98.0) fL MCH (27.0-32.0) pg MCHC (31.0-37.0) g/dL RDW Std Deviation (28.0-62.0) fl RDW Coeff of Shazia (11.0-15.0) % Plt Count (150-400) K/uL MPV (7.40-12.00) fL Neut % (Auto) (48.0-80.0) % Lymph % (Auto) (16.0-40.0) % [place] % (Auto) (0.0-15.0) % Eos % (Auto) (0.0-7.0) % Baso % (Auto) (0.0-1.5) % Neut # (Auto) (1.4-5.7) K/uL Lymph # (Auto) (0.6-2.4) K/uL [place] # (Auto) (0.0-0.8) K/uL Eos # (Auto) (0.0-0.7) K/uL Baso # (Auto) (0.0-0.1) K/uL Nucleated RBC % /100WBC Nucleated RBCs # K/uL Sodium 131 L (136-145) mmol/L Potassium 4.1 (3.5-5.1) mmol/L Chloride 94 L (98-107) mmol/L Carbon Dioxide 26.4 (21.0-32.0) mmol/L BUN 23 H (7.0-18.0) mg/dL Creatinine 1.1 H (0.6-1.0) mg/dL Est Cr Clr Drug Dosing 34.67 mL/min Estimated GFR (MDRD) 49.2 ml/min Glucose 121 H (74-106) mg/dL Calcium 8.9 (8.5-10.1) mg/dL Phosphorus 4.7 (2.6-4.7) mg/dL Magnesium 1.6 L (1.8-2.4) mg/dL Total Bilirubin (0.2-1.0) mg/dL AST (15-37) IU/L ALT (14-63) IU/L Alkaline Phosphatase (46-116) U/L Troponin I (0.000-0.056) ng/mL B-Natriuretic Peptide (<100) PG/ML Total Protein (6.4-8.2) g/dL Albumin (3.4-5.0) g/dL Globulin (2.6-4.0) g/dL Albumin/Globulin Ratio (0.9-1.6) TSH 3rd Generation (0.36-3.74) uIU/mL SARS-CoV-2 RNA (RT-PCR) NEGATIVE (NEGATIVE) Blood Type Antibody Screen Crossmatch 04/21/20 04/21/20 04/21/20 Range/Units 00:15 05:35 05:35 WBC 3.71 L (4.0-11.0) K/uL RBC 2.91 L (4.30-5.90) M/uL Hgb 8.5 L (12.0-16.0) g/dL Hct 26.4 L (36.0-46.0) % MCV 90.7 (80.0-98.0) fL MCH 29.2 (27.0-32.0) pg MCHC 32.2 (31.0-37.0) g/dL RDW Std Deviation 47.6 (28.0-62.0) fl RDW Coeff of Shazia 16 H (11.0-15.0) % Plt Count 262 (150-400) K/uL MPV 9.50 (7.40-12.00) fL Neut % (Auto) 95.7 H (48.0-80.0) % Lymph % (Auto) 3.8 L (16.0-40.0) % [place] % (Auto) 0.5 (0.0-15.0) % Eos % (Auto) 0.0 (0.0-7.0) % Baso % (Auto) 0.0 (0.0-1.5) % Neut # (Auto) 3.6 (1.4-5.7) K/uL Lymph # (Auto) 0.1 L (0.6-2.4) K/uL [place] # (Auto) 0.0 (0.0-0.8) K/uL Eos # (Auto) 0.0 (0.0-0.7) K/uL Baso # (Auto) 0.0 (0.0-0.1) K/uL Nucleated RBC % 0.0 /100WBC Nucleated RBCs # 0 K/uL Sodium 129 L (136-145) mmol/L Potassium 4.2 (3.5-5.1) mmol/L Chloride 90 L (98-107) mmol/L Carbon Dioxide 24.3 (21.0-32.0) mmol/L BUN 22 H (7.0-18.0) mg/dL Creatinine 1.2 H (0.6-1.0) mg/dL Est Cr Clr Drug Dosing 31.78 mL/min Estimated GFR (MDRD) 44.5 ml/min Glucose 317 H (74-106) mg/dL Calcium 8.4 L (8.5-10.1) mg/dL Phosphorus 6.3 H (2.6-4.7) mg/dL Magnesium 2.2 (1.8-2.4) mg/dL Total Bilirubin (0.2-1.0) mg/dL AST (15-37) IU/L ALT (14-63) IU/L Alkaline Phosphatase (46-116) U/L Troponin I (0.000-0.056) ng/mL B-Natriuretic Peptide (<100) PG/ML Total Protein (6.4-8.2) g/dL Albumin (3.4-5.0) g/dL Globulin (2.6-4.0) g/dL Albumin/Globulin Ratio (0.9-1.6) TSH 3rd Generation 2.03 (0.36-3.74) uIU/mL SARS-CoV-2 RNA (RT-PCR) (NEGATIVE) Blood Type Antibody Screen Crossmatch 04/21/20 Range/Units 10:14 WBC (4.0-11.0) K/uL RBC (4.30-5.90) M/uL Hgb (12.0-16.0) g/dL Hct (36.0-46.0) % MCV (80.0-98.0) fL MCH (27.0-32.0) pg MCHC (31.0-37.0) g/dL RDW Std Deviation (28.0-62.0) fl RDW Coeff of Shazia (11.0-15.0) % Plt Count (150-400) K/uL MPV (7.40-12.00) fL Neut % (Auto) (48.0-80.0) % Lymph % (Auto) (16.0-40.0) % [place] % (Auto) (0.0-15.0) % Eos % (Auto) (0.0-7.0) % Baso % (Auto) (0.0-1.5) % Neut # (Auto) (1.4-5.7) K/uL Lymph # (Auto) (0.6-2.4) K/uL [place] # (Auto) (0.0-0.8) K/uL Eos # (Auto) (0.0-0.7) K/uL Baso # (Auto) (0.0-0.1) K/uL Nucleated RBC % /100WBC Nucleated RBCs # K/uL Sodium (136-145) mmol/L Potassium (3.5-5.1) mmol/L Chloride (98-107) mmol/L Carbon Dioxide (21.0-32.0) mmol/L BUN (7.0-18.0) mg/dL Creatinine (0.6-1.0) mg/dL Est Cr Clr Drug Dosing mL/min Estimated GFR (MDRD) ml/min Glucose (74-106) mg/dL Calcium (8.5-10.1) mg/dL Phosphorus (2.6-4.7) mg/dL Magnesium (1.8-2.4) mg/dL Total Bilirubin (0.2-1.0) mg/dL AST (15-37) IU/L ALT (14-63) IU/L Alkaline Phosphatase (46-116) U/L Troponin I (0.000-0.056) ng/mL B-Natriuretic Peptide (<100) PG/ML Total Protein (6.4-8.2) g/dL Albumin (3.4-5.0) g/dL Globulin (2.6-4.0) g/dL Albumin/Globulin Ratio (0.9-1.6) TSH 3rd Generation (0.36-3.74) uIU/mL SARS-CoV-2 RNA (RT-PCR) (NEGATIVE) Blood Type A POSITIVE Antibody Screen NEGATIVE Crossmatch See Detail Med Orders - Current: Current Medications Albuterol/Ipratropium (Duoneb 3.0-0.5 Mg/3 Ml) 3 ml NEB Q4HRRT [facility] Last Admin: 04/21/20 17:29 Dose: 3 ml Documented by: Allopurinol (Zyloprim) 300 mg PO BID [facility] Last Admin: 04/21/20 09:20 Dose: 300 mg Documented by: Apixaban (Eliquis) 5 mg PO BID [facility] [place] Last Admin: 04/21/20 10:52 Dose: 5 mg Documented by: Digoxin (Lanoxin) 250 mcg IVPUSH Q6H [facility] Stop: 04/21/20 22:01 Last Admin: 04/21/20 16:40 Dose: 250 mcg Documented by: Folic Acid (Folic Acid) 1 mg PO DAILY [facility] Last Admin: 04/21/20 09:20 Dose: 1 mg Documented by: Furosemide (Lasix) 40 mg IVPUSH BIDDIURETIC [facility] [place] Last Admin: 04/21/20 14:49 Dose: 40 mg Documented by: Hydromorphone HCl (Dilaudid) 2 mg PO Q4H PRN PRN Reason: Pain Last Admin: 04/21/20 11:27 Dose: 2 mg Documented by: Amiodarone HCl/Dextrose (Nexterone In Dextrose 360 Mg/200 Ml) 360 mg in 200 mls @ 33.333 mls/hr IV ASDIRECTED [facility]; Protocol Last Admin: 04/21/20 09:37 Dose: 0.5 mg/min, 16.667 mls/hr Documented by: Lorazepam (Ativan) 1 mg PO ASDIRECTED PRN PRN Reason: Anxiety Last Admin: 04/21/20 00:13 Dose: 1 mg Documented by: Metoprolol Succinate (Toprol Xl) 75 mg PO DAILY [facility] [place] Last Admin: 04/21/20 10:52 Dose: 75 mg Documented by: Multivitamins/Minerals (Prosight) 1 tab PO DAILY [facility] [place] Last Admin: 04/21/20 09:20 Dose: 1 tab Documented by: Omeprazole (Omeprazole) 20 mg PO ACBREAKFAST [facility] [place] Last Admin: 04/21/20 09:20 Dose: 20 mg Documented by: Ondansetron HCl (Zofran) 4 mg IVPUSH Q4H PRN PRN Reason: Nausea/Vomiting Last Admin: 04/21/20 11:29 Dose: 4 mg Documented by: Pyridoxine HCl (Vitamin B6-Pyridoxine) 100 mg PO BEDTIME [facility] Senna (Senna) 17.2 mg PO DAILY [facility] [place] Last Admin: 04/21/20 10:53 Dose: 17.2 mg Documented by: Sertraline HCl (Zoloft) 50 mg PO DAILY [facility] [place] Last Admin: 04/21/20 10:52 Dose: 50 mg Documented by: Sodium Chloride (Saline Flush) 10 ml FLUSH ASDIRECTED PRN PRN Reason: Keep Vein Open Last Admin: 04/21/20 09:42 Dose: 10 ml Documented by: Sodium Chloride (Saline Flush) 2.5 ml FLUSH ASDIRECTED PRN PRN Reason: Keep Vein Open Discontinued Medications Albuterol (Ventolin Hfa) 0 gm INH ASDIRECTED PRN PRN Reason: Shortness of Breath Stop: 04/21/20 00:45 Albuterol/Ipratropium (Duoneb 3.0-0.5 Mg/3 Ml) Confirm Administered Dose 9 ml .ROUTE .STK-MED ONE Stop: 04/20/20 19:18 Last Admin: 04/20/20 19:30 Dose: 9 ml Documented by: Albuterol/Ipratropium (Duoneb 3.0-0.5 Mg/3 Ml) 3 ml NEB Q4HRRT PRN PRN Reason: Shortness Of Breath/wheezing Last Admin: 04/21/20 10:52 Dose: 3 ml Documented by: Digoxin (Lanoxin) 500 mcg IVPUSH ONETIME ONE Stop: 04/21/20 09:57 Last Admin: 04/21/20 10:53 Dose: 500 mcg Documented by: Diltiazem HCl (Diltiazem) 20 mg IVPUSH ONETIME ONE Stop: 06/16/20 21:03 Last Admin: 04/20/20 21:31 Dose: Not Given Documented by: Enoxaparin Sodium (Lovenox) 40 mg SUBCUT Q24H [facility] Last Admin: 04/21/20 00:04 Dose: Not Given Documented by: Furosemide (Lasix) 40 mg IVPUSH NOW ONE Stop: 04/20/20 21:02 Last Admin: 04/20/20 21:25 Dose: 40 mg Documented by: Heparin Sodium (Porcine) (Heparin Lock Flush 100 Units/Ml) 500 units FLUSH NOW STA Stop: 04/20/20 20:06 Last Admin: 04/20/20 20:09 Dose: 500 units Documented by: Heparin Sodium (Porcine) (Heparin Lock Flush 100 Units/Ml) Confirm Administered Dose 500 units .ROUTE .STK-MED ONE Stop: 04/20/20 20:08 Last Admin: 04/20/20 23:51 Dose: Not Given Documented by: Hydromorphone HCl (Dilaudid) 2 mg PO ASDIRECTED PRN PRN Reason: Pain Diltiazem HCl 125 mg/ Sodium (Chloride) 125 mls @ 5 mls/hr IV NOW [facility]; Protocol Diltiazem HCl 100 mg/ Sodium (Chloride) 100 mls @ 4 mls/hr IV ASDIRECTED [facility]; Protocol Last Titration: 04/21/20 00:39 Dose: 15 mls/hr, 15 mls/hr Documented by: Magnesium Sulfate 2 gm/ Premix 50 mls @ 50 mls/hr IV ONETIME ONE Stop: 04/21/20 00:38 Last Admin: 04/21/20 00:13 Dose: 50 mls/hr Documented by: Amiodarone HCl/Dextrose 150 mg (/ Premix) 100 mls @ 400 mls/hr IV NOW ONE; Protocol Stop: 04/21/20 02:53 Last Admin: 04/21/20 02:51 Dose: 400 mls/hr Documented by: Amiodarone HCl/Dextrose (Nexterone In Dextrose 150 Mg/100 Ml) Confirm Administered Dose 100 mls @ as directed IV .STK-MED ONE Stop: 04/21/20 02:51 Last Admin: 04/21/20 09:38 Dose: Not Given Documented by: Amiodarone HCl/Dextrose (Nexterone In Dextrose 360 Mg/200 Ml) Confirm Administered Dose 360 mg in 200 mls @ as directed .ROUTE .STK-MED ONE Stop: 04/21/20 02:52 Last Admin: 04/21/20 09:38 Dose: Not Given Documented by: Methylprednisolone Sodium Succinate (Solu-Medrol) 125 mg IVPUSH ONETIME ONE Stop: 04/20/20 19:35 Last Admin: 04/20/20 20:08 Dose: 125 mg Documented by: Metoprolol Succinate (Toprol Xl) 50 mg PO DAILY [facility] Metoprolol Succinate (Toprol Xl) 75 mg PO DAILY [facility] [place] Last Admin: 04/21/20 10:54 Dose: Not Given Documented by: Non-Formulary Medication (Albuterol [Proair Hfa]) 2 inh INH ASDIRECTED PRN PRN Reason: Shortness of Breath Non-Formulary Medication (Allopurinol [Zyloprim]) 1 tab PO BID [facility] Non-Formulary Medication (Sennosides [Senna]) 2 tab PO DAILY [facility] Non-Formulary Medication (Vit A/Vit C/Vit E/Zinc/Copper [Preservision]) 1 tab PO DAILY [facility] Non-Formulary Medication (Vitamin B6-Pyridoxine) 1 tab PO BEDTIME [facility] - Exam Quality Assessment: Supplemental Oxygen General: Alert, Oriented, Cooperative, Mild Distress Neck: Supple, Trachea Midline Lungs: Decreased Breath Sounds, Crackles, Rales Cardiovascular: Irregular Rhythm, Tachycardia GI/Abdominal Exam: Normal Bowel Sounds, Soft, Non-Tender Extremities: Normal Inspection, Normal Range of Motion, Non-Tender Sepsis Event Note - Evaluation Sepsis Screening Result: No Definite Risk - Focused Exam Vital Signs: Vital Signs Temp Temp Pulse Pulse Resp BP BP 04/21/20 17:00 16 113/62 04/21/20 16:40 88 04/21/20 16:00 36.8 C 16 119/57 L 04/21/20 15:27 36.7 C 90 13 119/57 L 04/21/20 15:00 19 123/56 L 04/21/20 14:00 16 119/61 04/21/20 13:00 36.8 C 14 119/56 L 04/21/20 12:57 36.8 C 92 14 119/56 L 04/21/20 12:27 36.8 C 121 H 14 98/50 L 04/21/20 12:12 36.8 C 138 H 14 96/52 L 04/21/20 11:57 36.7 C 36.7 C 136 H 14 104/47 L 04/21/20 11:36 16 111/55 L 04/21/20 11:00 14 115/57 L 04/21/20 10:53 135 H 04/21/20 10:52 133 H 138/68 04/21/20 10:20 14 138/68 04/21/20 09:00 12 129/64 04/21/20 08:00 12 105/45 L 04/21/20 07:00 36.3 C 12 92/51 L Pulse Ox 04/21/20 17:00 93 L 04/21/20 16:40 04/21/20 16:00 94 L 04/21/20 15:27 91 L 04/21/20 15:00 93 L 04/21/20 14:00 93 L 04/21/20 13:00 94 L 04/21/20 12:57 94 L 04/21/20 12:27 95 04/21/20 12:12 94 L 04/21/20 11:57 94 L 04/21/20 11:36 94 L 04/21/20 11:00 94 L 04/21/20 10:53 04/21/20 10:52 04/21/20 10:20 95 04/21/20 09:00 93 L 04/21/20 08:00 94 L 04/21/20 07:00 93 L Date Exam was Performed: 04/28/20 Time Exam was Performed: 20:08 - Problem List & Annotations (1) Atrial fibrillation with rapid ventricular response SNOMED Code(s): 868153992821483 Code(s): I48.91 - UNSPECIFIED ATRIAL FIBRILLATION Status: Acute (2) Congestive heart failure SNOMED Code(s): 35883648 Code(s): I50.9 - HEART FAILURE, UNSPECIFIED Status: Acute (3) Lung cancer SNOMED Code(s): 474327225 Code(s): C34.90 - MALIGNANT NEOPLASM OF UNSP PART OF UNSP BRONCHUS OR LUNG Status: Acute Qualifiers: Laterality: unspecified laterality Lung location: unspecified part of lung Qualified Code(s): C34.90 - Malignant neoplasm of unspecified part of unspecified bronchus or lung (4) Respiratory failure with hypoxia SNOMED Code(s): 91890933916625080 Code(s): J96.91 - RESPIRATORY FAILURE, UNSPECIFIED WITH HYPOXIA Status: Acute (5) COPD (chronic obstructive pulmonary disease) SNOMED Code(s): 10713287 Code(s): J44.9 - CHRONIC OBSTRUCTIVE PULMONARY DISEASE, UNSPECIFIED Status: Acute (6) PICC (peripherally inserted central catheter) in place SNOMED Code(s): 7172813792913, 7510405174512 Code(s): Z45.2 - ENCOUNTER FOR ADJUSTMENT AND MANAGEMENT OF VAD Status: Acute (7) Hypomagnesemia SNOMED Code(s): 774291433 Code(s): E83.42 - HYPOMAGNESEMIA Status: Acute - Problem List Review Problem List Initiated/Reviewed/Updated: Yes - My Orders Last 24 Hours: My Active Orders 04/20/20 21:56 Ambulate [RC] ASDIRECTED Vital Signs [RC] Q1H Ondansetron [Zofran] 4 mg IVPUSH Q4H PRN 04/20/20 21:57 Oxygen Therapy [RC] PRN Pulse Oximetry [RC] CONTINUOUS VTE/DVT Education [RC] PER UNIT ROUTINE 04/20/20 21:59 RT Aerosol Therapy [RC] ASDIRECTED 04/20/20 22:03 LORazepam [Ativan] 1 mg PO ASDIRECTED PRN 04/20/20 23:57 HYDROmorphone [Dilaudid] 2 mg PO Q4H PRN 04/21/20 Echo Comp wo Cont [US] Stat 04/21/20 00:15 Apixaban [Eliquis] 5 mg PO BID 04/21/20 07:30 Omeprazole 20 mg PO ACBREAKFAST 04/21/20 08:00 Furosemide [Lasix] 40 mg IVPUSH BIDDIURETIC 04/21/20 09:00 Beta-Carotene(A) w/C & E/Min [Prosight] 1 tab PO DAILY Folic Acid 1 mg PO DAILY Sennosides [Senna] 17.2 mg PO DAILY Sertraline [Zoloft] 50 mg PO DAILY allopurinoL [Zyloprim] 300 mg PO BID 04/21/20 21:00 Vitamin B6-pyridOXINE 100 mg PO BEDTIME - Plan Plan:: continues to be intermittently in Afib RVR Switched to amiodarone overnight Will load with digoxin to wean off the amiodarone Will give a trial of BiPAP if patient tolerates cont Anticoagulation IV Lasix 40 mg BID for fluid overload Hb slightly low, will transfuse 1 unit of PRBC F/U 2D ECHO Monitor vitals closely Replete electrolytes as needed Monitor Na closely
[2020-04-21] MEDS ORDERED: Lidocaine 5% 700 MG Patch TOP SCH (18:30)
[2020-04-21] MEDS ORDERED: Vitamin B6-pyridOXINE 50 MG Tab PO SCH (21:00)
[2020-04-21] MEDS ORDERED: [UNRECOGNIZED DRUG - OTHER] PO SCH (21:00)
[2020-04-21] MEDS ORDERED: PYRIDOXINE PO SCH (21:00)
[2020-04-21] MEDS ORDERED: Bisacodyl 10 MG Supp RECTAL ONE (21:34)
[2020-04-22] MEDS ORDERED: Metoprolol Tartrate 5 MG/5 ML SDV IVPUSH ONE ×2 (00:40→02:46)
[2020-04-22] MEDS: LORazepam 1 MG Tab PO PRN (01:22)
[2020-04-22] MEDS: Albuterol/Ipratropium 3.0-0.5 MG/3 ML Neb Soln NEB SCH ×3 (01:22→09:56)
--- NOTE | 2020-04-22 04:41 | PN ---
THC Physician - Brief Progress [id number]/18/2020 04:34[facility] [place] - MAHAMEDN (ALAN) - KYM JOSHYAM LOWEPRINCESS GregorioDate of Service 04/22/2020 04:34HPI/Ev ents of Note Overnight events.Called for tachycardia 120s-130s, a fib RVR while on Amiodarone drip. P atient is asymptomatic, sleeping. BP maintained.A/P:- continue Amiodaorne drip to achieve full loadin g dose. Rec'd a bolus of Digoxin during the day without any effect. Diltiazem did not work previously .- gave Lopressor 2.5 mg IVP x1 and later 5 mg IVP x1, both times with momentary decrease in HR which then returned to prior levels.- give am dose of Toprol XL early and monitor HR. May need to increase dose to 200 mg if target HR (<110) still not achieved and BP tolerates.Interventions Intermediate-Ar rhythmia - evaluation and management
[2020-04-22] MEDS: Metoprolol Succinate 100 MG Tab.ER PO SCH ×3 (04:48→09:09)
[2020-04-22 06:22] LABS: CARBON DIOXIDE,CO2 29.3 mmol/L (21.0-32.0); POTASSIUM,K 4.2 mmol/L (3.5-5.1)
[2020-04-22] MEDS ORDERED: Remove Patch*LIDOCAINE TRDERM SCH (06:30)
[2020-04-22] MEDS: Omeprazole 20 MG Cap.CR PO SCH (06:37)
--- NOTE | 2020-04-22 07:45 | PN ---
THC Physician - Brief Progress [id number]/18/2020 07:42[facility] Kim Bubba richardson, [place] - MWN (ALAN) - KYM GONZALEZJOSEMANUEL LUKELanceDate of Service 04/22/2020 07:42HPI/Ev ents of Note Called for HR 139, a fib despite our interventions overnight. On camera, the patient is still asleep in bed, apepars in NAD. AM labs reviewed - electrolytes are optimized.A/P:A fib RVR, ref ractory.We have tried so far - Diltiazem drip, Amiodarone drip, Digoxin and beta-bayron. HR not impr reentta.Recommend transfer to a higher level of care for cardiology services.Interventions Intermediate- Arrhythmia - evaluation and management 07:4 5
[2020-04-22] MEDS: Furosemide 40 MG/4 ML VIAL IVPUSH SCH (08:22)
[2020-04-22] MEDS: Sennosides 8.6 MG Tab PO SCH (08:23)
[2020-04-22] MEDS: Folic Acid 1 MG Tab PO SCH (08:23)
[2020-04-22] MEDS: Apixaban 5 MG Tab PO SCH (08:23)
[2020-04-22] MEDS: Beta-Carotene (Vitamin A) w/Vitamin C & E plus Minerals Tab PO SCH (08:23)
[2020-04-22] MEDS: Allopurinol 300 MG Tab PO SCH (08:24)
[2020-04-22] MEDS: Sertraline 50 MG Tab PO SCH (08:24)
[2020-04-22] MEDS ORDERED: Digoxin 250 MCG Tab PO SCH (09:00)
[2020-04-22] MEDS ORDERED: Acetaminophen 325 MG Tab PO ONE (09:48)
--- NOTE | 2020-04-22 11:24 | PCM.DCSUM1 ---
<Valeri Parson - Last Filed: 04/24/20 13:41> Discharge Summary - Hospital Course Free Text/Narrative:: This is a 69-year-old female whose has a history significant for COPD, atrial fibrillation, hypertension, recent diagnosis of lung cancer on chemotherapy ,thrombocytopenia and anemia(requiring transfusion last transfusion was approximately 2 weeks ago) last chemo was 3 weeks back at [facility] and is scheduled for chemotherapy tomorrow, presented to the ER secondary to subacute shortness of breath that started earlier this afternoon around 2 pm and has been progressively getting worse. Daughter at bedside reports that the patient was in her usual state of health yesterday, today approximately 2 PM she started feeling increasing shortness of breath unlike her COPD exacerbations in past. Patient denied any new chest discomfort or pressure, patient denies any new cough denies any fevers, shakes, chills, nausea, vomiting, diarrhea, dysuria, frequency, urgency, abdominal pain, bloody stools or bloody urine. ER: found to have slight fluid on exam and on chest xray. BNP was elevated, Troponin was negative. She was also found to have Afib with RVR (HR in 120- 130s), was started on Cardizem gtt , started on [place] oxygen and admitted to ICU for further care. CT angio was done which ruled out PE but showed moderate right pleural effusion and mild pericardial effusion. Hospital course: pt .remained in Afib w. RVR despite Diltiazem, AMiodarone and digoxin Drip. BB increased to 100 mg daily ; however pt. was still fluctuating in high 130's to 140's. Pain stabilized but concners for hypoxia driven RVR; advised to start pt. on Bipap but pt refused citing claustrophobia. 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 - Discharge Data Discharge Date: 04/22/20 Discharge Disposition: DC/Tfer to Acute Hospital 02 Condition: Stable - Referral to Home Health Primary Care Physician: Reed Núñez MD - Patient Instructions Diet: Heart Healthy Diet Activity: Cough & Deep Breathe - Discharge Plan *PRESCRIPTION DRUG MONITORING PROGRAM REVIEWED*: Not Applicable *COPY OF PRESCRIPTION DRUG MONITORING REPORT IN PATIENT SIDNEY: Not Applicable Home Medications: Home Meds Albuterol [Proair HFA] 2 inh INH QID PRN 09/11/14 [History] Ubidecarenone [Co Q-10] 1 tab PO DAILY 09/11/14 [History] Ondansetron [Zofran] 4 mg PO Q8H #30 tab 09/15/14 [Rx] Allopurinol [Zyloprim] 300 mg PO BID 04/07/20 [History] Budesonide/Formoterol Fumarate [Symbicort 80-4.5 MCG] 2 puff INH BID 04/07/20 [History] Folic Acid 1 mg PO DAILY 04/07/20 [History] HYDROmorphone [Dilaudid] 2 mg PO Q4H PRN 04/07/20 [History] LORazepam [Ativan] 1 tab PO DAILY PRN 04/07/20 [History] Omeprazole 20 mg PO DAILY 04/07/20 [History] Vitamin B6-pyridOXINE 1 tab PO BEDTIME 04/07/20 [History] Diphenhyd/Lidocaine/Nystatin [Magic Mouthwash] 1 dose PO Q4H PRN 04/20/20 [History] Ipratropium [Atrovent HFA] 2 puff INH QID 04/20/20 [History] Metoprolol Tartrate [Lopressor] 75 mg PO DAILY 04/20/20 [History] Sennosides [Senna] 2 tab PO BEDTIME 04/20/20 [History] Sertraline [Zoloft] 50 mg PO BEDTIME 04/20/20 [History] Vit A/Vit C/Vit E/Zinc/Copper [Preservision] 1 tab PO BEDTIME 04/20/20 [History] amLODIPine [Norvasc] 2.5 mg PO BEDTIME 04/20/20 [History] Acetaminophen [Tylenol Extra Strength] 500 mg PO Q3H PRN 04/21/20 [History] Docusate Sodium [Colace] 100 mg PO BEDTIME 04/21/20 [History] Albuterol/Ipratropium [DuoNeb 3.0-0.5 MG/3 ML] 3 ml NEB Q4HRRT neb 04/22/20 [Rx] Apixaban [Eliquis] 5 mg PO BID tablet 04/22/20 [Rx] Furosemide [Lasix] 40 mg IVPUSH BIDDIURETIC vial 04/22/20 [Rx] Lidocaine 5% [Lidoderm 5%] 700 mg TOP Q24H patch 04/22/20 [Rx] Metoprolol Succinate [Toprol XL 100mg] 100 mg PO DAILY tab.er 04/22/20 [Rx] Ondansetron [Zofran] 4 mg IVPUSH Q4H PRN vial 04/22/20 [Rx] Remove Patch 1 ea TRDERM Q24H each 04/22/20 [Rx] Sodium Chloride 0.9% [Saline Flush] 2.5 ml FLUSH ASDIRECTED PRN syringe 04/22/20 [Rx] Sodium Chloride 0.9% [Saline Flush] 10 ml FLUSH ASDIRECTED PRN syringe 04/22/20 [Rx] Oxygen Therapy Mode: Nasal Cannula Forms: ED Department Discharge Referrals: Reed Núñez MD [Primary Care Provider] - - Discharge Summary/Plan Comment DC Time >30 min.: No - Patient Data Vitals - Most Recent: Last Vital Signs Temp 97.5 F 04/22/20 08:00 Pulse 131 H 04/22/20 10:00 Resp 14 04/22/20 10:00 BP 108/73 04/22/20 10:00 Pulse Ox 94 L 04/22/20 10:00 Weight - Most Recent: 66.395 kg I&O - Last 24 hours: Intake & Output 04/21/20 04/22/20 04/22/20 22:59 06:59 14:59 Intake Total 375 236 Output Total 8681 852 7436 Balance -[phone] Lab Results - Last 24 hrs: Laboratory Results - last 24 hr 04/21/20 04/22/20 04/22/20 Range/Units 10:14 05:52 05:52 WBC 7.20 (4.0-11.0) K/uL RBC 3.27 L (4.30-5.90) M/uL Hgb 9.4 L (12.0-16.0) g/dL Hct 29.2 L (36.0-46.0) % MCV 89.3 (80.0-98.0) fL MCH 28.7 (27.0-32.0) pg MCHC 32.2 (31.0-37.0) g/dL RDW Std Deviation 48.8 (28.0-62.0) fl RDW Coeff of Shazia 17 H (11.0-15.0) % Plt Count 265 (150-400) K/uL MPV 9.00 (7.40-12.00) fL Neut % (Auto) 86.3 H (48.0-80.0) % Lymph % (Auto) 5.7 L (16.0-40.0) % [place] % (Auto) 7.9 (0.0-15.0) % Eos % (Auto) 0.0 (0.0-7.0) % Baso % (Auto) 0.1 (0.0-1.5) % Neut # (Auto) 6.2 H (1.4-5.7) K/uL Lymph # (Auto) 0.4 L (0.6-2.4) K/uL [place] # (Auto) 0.6 (0.0-0.8) K/uL Eos # (Auto) 0.0 (0.0-0.7) K/uL Baso # (Auto) 0.0 (0.0-0.1) K/uL Nucleated RBC % 0.0 /100WBC Nucleated RBCs # 0 K/uL Sodium 131 L (136-145) mmol/L Potassium 4.2 (3.5-5.1) mmol/L Chloride 94 L (98-107) mmol/L Carbon Dioxide 29.3 (21.0-32.0) mmol/L BUN 31 H (7.0-18.0) mg/dL Creatinine 1.4 H (0.6-1.0) mg/dL Est Cr Clr Drug Dosing 30.68 mL/min Estimated GFR (MDRD) 37.3 ml/min Glucose 195 H (74-106) mg/dL Calcium 8.7 (8.5-10.1) mg/dL Phosphorus 4.2 (2.6-4.7) mg/dL Magnesium 1.8 (1.8-2.4) mg/dL Blood Type A POSITIVE Antibody Screen NEGATIVE Crossmatch See Detail Med Orders - Current: Current Medications Albuterol/Ipratropium (Duoneb 3.0-0.5 Mg/3 Ml) 3 ml NEB Q4HRRT [facility] Last Admin: 04/22/20 09:56 Dose: 3 ml Documented by: Allopurinol (Zyloprim) 300 mg PO BID [facility] Last Admin: 04/22/20 08:24 Dose: 300 mg Documented by: Apixaban (Eliquis) 5 mg PO BID [facility] Last Admin: 04/22/20 08:23 Dose: 5 mg Documented by: Digoxin (Lanoxin) 250 mcg PO DAILY [facility] Last Admin: 04/22/20 08:23 Dose: 250 mcg Documented by: Folic Acid (Folic Acid) 1 mg PO DAILY [facility] Last Admin: 04/22/20 08:23 Dose: 1 mg Documented by: Furosemide (Lasix) 40 mg IVPUSH BIDDIURETIC [facility] Last Admin: 04/22/20 08:22 Dose: 40 mg Documented by: Hydromorphone HCl (Dilaudid) 2 mg PO Q4H PRN PRN Reason: Pain Last Admin: 04/21/20 11:27 Dose: 2 mg Documented by: Amiodarone HCl/Dextrose (Nexterone In Dextrose 360 Mg/200 Ml) 360 mg in 200 mls @ 33.333 mls/hr IV ASDIRECTED [facility]; Protocol Last Admin: 04/22/20 07:34 Dose: 0.5 mg/min, 16.667 mls/hr Documented by: Lidocaine (Lidoderm 5%) 700 mg TOP Q24H [facility] Last Admin: 04/21/20 18:44 Dose: 700 mg Documented by: Lorazepam (Ativan) 1 mg PO ASDIRECTED PRN PRN Reason: Anxiety Last Admin: 04/22/20 01:22 Dose: 1 mg Documented by: Metoprolol Succinate (Toprol Xl) 100 mg PO DAILY [facility] Last Admin: 04/22/20 09:09 Dose: 100 mg Documented by: Miscellaneous Information (Remove Patch) 1 ea TRDERM Q24H [facility] Last Admin: 04/22/20 06:44 Dose: 1 ea Documented by: Multivitamins/Minerals (Prosight) 1 tab PO DAILY [facility] Last Admin: 04/22/20 08:23 Dose: 1 tab Documented by: Omeprazole (Omeprazole) 20 mg PO ACBREAKFAST [facility] Last Admin: 04/22/20 06:37 Dose: 20 mg Documented by: Ondansetron HCl (Zofran) 4 mg IVPUSH Q4H PRN PRN Reason: Nausea/Vomiting Last Admin: 04/21/20 11:29 Dose: 4 mg Documented by: Pyridoxine HCl (Vitamin B6-Pyridoxine) 100 mg PO BEDTIME [facility] Last Admin: 04/21/20 21:03 Dose: 100 mg Documented by: Senna (Senna) 17.2 mg PO DAILY [facility] Last Admin: 04/22/20 08:23 Dose: 17.2 mg Documented by: Sertraline HCl (Zoloft) 50 mg PO DAILY [facility] Last Admin: 04/22/20 08:24 Dose: 50 mg Documented by: Sodium Chloride (Saline Flush) 10 ml FLUSH ASDIRECTED PRN PRN Reason: Keep Vein Open Last Admin: 04/21/20 09:42 Dose: 10 ml Documented by: Sodium Chloride (Saline Flush) 2.5 ml FLUSH ASDIRECTED PRN PRN Reason: Keep Vein Open Discontinued Medications Acetaminophen (Tylenol) 325 mg PO NOW ONE Stop: 04/22/20 09:49 Last Admin: 04/22/20 09:56 Dose: 325 mg Documented by: Albuterol (Ventolin Hfa) 0 gm INH ASDIRECTED PRN PRN Reason: Shortness of Breath Stop: 04/21/20 00:45 Albuterol/Ipratropium (Duoneb 3.0-0.5 Mg/3 Ml) Confirm Administered Dose 9 ml .ROUTE .STK-MED ONE Stop: 04/20/20 19:18 Last Admin: 04/20/20 19:30 Dose: 9 ml Documented by: Albuterol/Ipratropium (Duoneb 3.0-0.5 Mg/3 Ml) 3 ml NEB Q4HRRT PRN PRN Reason: Shortness Of Breath/wheezing Last Admin: 04/21/20 10:52 Dose: 3 ml Documented by: Bisacodyl (Dulcolax) 10 mg RECTAL ONETIME ONE Stop: 04/21/20 21:35 Last Admin: 04/21/20 21:59 Dose: 10 mg Documented by: Digoxin (Lanoxin) 500 mcg IVPUSH ONETIME ONE Stop: 04/21/20 09:57 Last Admin: 04/21/20 10:53 Dose: 500 mcg Documented by: Digoxin (Lanoxin) 250 mcg IVPUSH Q6H [facility] Stop: 04/21/20 22:01 Last Admin: 04/21/20 21:59 Dose: 250 mcg Documented by: Diltiazem HCl (Diltiazem) 20 mg IVPUSH ONETIME ONE Stop: 04/20/20 21:03 Last Admin: 04/20/20 21:31 Dose: Not Given Documented by: Enoxaparin Sodium (Lovenox) 40 mg SUBCUT Q24H [facility] Last Admin: 04/21/20 00:04 Dose: Not Given Documented by: Furosemide (Lasix) 40 mg IVPUSH NOW ONE Stop: 04/20/20 21:02 Last Admin: 04/20/20 21:25 Dose: 40 mg Documented by: Heparin Sodium (Porcine) (Heparin Lock Flush 100 Units/Ml) 500 units FLUSH NOW STA Stop: 04/20/20 20:06 Last Admin: 04/20/20 20:09 Dose: 500 units Documented by: Heparin Sodium (Porcine) (Heparin Lock Flush 100 Units/Ml) Confirm Administered Dose 500 units .ROUTE .STK-MED ONE Stop: 04/20/20 20:08 Last Admin: 04/20/20 23:51 Dose: Not Given Documented by: Hydromorphone HCl (Dilaudid) 2 mg PO ASDIRECTED PRN PRN Reason: Pain Diltiazem HCl 125 mg/ Sodium (Chloride) 125 mls @ 5 mls/hr IV NOW [facility]; Protocol Diltiazem HCl 100 mg/ Sodium (Chloride) 100 mls @ 4 mls/hr IV ASDIRECTED [facility]; Protocol Last Titration: 04/21/20 00:39 Dose: 15 mls/hr, 15 mls/hr Documented by: Magnesium Sulfate 2 gm/ Premix 50 mls @ 50 mls/hr IV ONETIME ONE Stop: 04/21/20 00:38 Last Admin: 04/21/20 00:13 Dose: 50 mls/hr Documented by: Amiodarone HCl/Dextrose 150 mg (/ Premix) 100 mls @ 400 mls/hr IV NOW ONE; Protocol Stop: 04/21/20 02:53 Last Admin: 04/21/20 02:51 Dose: 400 mls/hr Documented by: Amiodarone HCl/Dextrose (Nexterone In Dextrose 150 Mg/100 Ml) Confirm Administered Dose 100 mls @ as directed IV .STK-MED ONE Stop: 04/21/20 02:51 Last Admin: 04/21/20 09:38 Dose: Not Given Documented by: Amiodarone HCl/Dextrose (Nexterone In Dextrose 360 Mg/200 Ml) Confirm Administered Dose 360 mg in 200 mls @ as directed .ROUTE .STK-MED ONE Stop: 04/21/20 02:52 Last Admin: 04/21/20 09:38 Dose: Not Given Documented by: Methylprednisolone Sodium Succinate (Solu-Medrol) 125 mg IVPUSH ONETIME ONE Stop: 04/20/20 19:35 Last Admin: 04/20/20 20:08 Dose: 125 mg Documented by: Metoprolol Succinate (Toprol Xl) 50 mg PO DAILY [facility] Metoprolol Succinate (Toprol Xl) 75 mg PO DAILY [facility] Last Admin: 04/21/20 10:54 Dose: Not Given Documented by: Metoprolol Succinate (Toprol Xl) 75 mg PO DAILY [facility] Last Admin: 04/21/20 10:52 Dose: 75 mg Documented by: Metoprolol Tartrate (Lopressor) 2.5 mg IVPUSH ONETIME ONE Stop: 04/22/20 00:41 Last Admin: 04/22/20 00:48 Dose: 2.5 mg Documented by: Metoprolol Tartrate (Lopressor) 5 mg IVPUSH ONETIME ONE Stop: 04/22/20 02:47 Last Admin: 04/22/20 02:59 Dose: 5 mg Documented by: Non-Formulary Medication (Albuterol [Proair Hfa]) 2 inh INH ASDIRECTED PRN PRN Reason: Shortness of Breath Non-Formulary Medication (Allopurinol [Zyloprim]) 1 tab PO BID [facility] Non-Formulary Medication (Sennosides [Senna]) 2 tab PO DAILY [facility] Non-Formulary Medication (Vit A/Vit C/Vit E/Zinc/Copper [Preservision]) 1 tab PO DAILY [facility] Non-Formulary Medication (Vitamin B6-Pyridoxine) 1 tab PO BEDTIME [facility] <Noelle Crawford - Last Filed: 04/28/20 20:00> Discharge Summary - Hospital Course Free Text/Narrative:: I have seen and evaluated the patient and agree with the residents note unless specified in my note - Referral to Home Health Primary Care Physician: Reed Núñez MD - Discharge Diagnosis/Problem(s) (1) Atrial fibrillation with rapid ventricular response SNOMED Code(s): 623111401550705 ICD Code: I48.91 - UNSPECIFIED ATRIAL FIBRILLATION Status: Acute (2) Congestive heart failure SNOMED Code(s): 25960101 ICD Code: I50.9 - HEART FAILURE, UNSPECIFIED Status: Acute (3) Lung cancer SNOMED Code(s): 397917695 ICD Code: C34.90 - MALIGNANT NEOPLASM OF UNSP PART OF UNSP BRONCHUS OR LUNG Status: Acute Qualifiers: Laterality: unspecified laterality Lung location: unspecified part of lung Qualified Code(s): C34.90 - Malignant neoplasm of unspecified part of unspecified bronchus or lung (4) Respiratory failure with hypoxia SNOMED Code(s): 19319108500558389 ICD Code: J96.91 - RESPIRATORY FAILURE, UNSPECIFIED WITH HYPOXIA Status: Acute (5) COPD (chronic obstructive pulmonary disease) SNOMED Code(s): 50229175 ICD Code: J44.9 - CHRONIC OBSTRUCTIVE PULMONARY DISEASE, UNSPECIFIED Status: Acute (6) PICC (peripherally inserted central catheter) in place SNOMED Code(s): 6505224481775, 6032509898762 ICD Code: Z45.2 - ENCOUNTER FOR ADJUSTMENT AND MANAGEMENT OF VAD Status: Acute (7) Hypomagnesemia SNOMED Code(s): 105455991 ICD Code: E83.42 - HYPOMAGNESEMIA Status: Acute - Patient Data Vitals - Most Recent: Last Vital Signs Temp 36.4 C 04/22/20 11:00 Pulse 133 H 04/22/20 12:00 Resp 16 04/22/20 12:00 BP 124/54 L 04/22/20 12:00 Pulse Ox 94 L 04/22/20 12:00 Med Orders - Current: Current Medications Discontinued Medications Acetaminophen (Tylenol) 325 mg PO NOW ONE Stop: 04/22/20 09:49 Last Admin: 04/22/20 09:56 Dose: 325 mg Documented by: Albuterol (Ventolin Hfa) 0 gm INH ASDIRECTED PRN PRN Reason: Shortness of Breath Stop: 04/21/20 00:45 Albuterol/Ipratropium (Duoneb 3.0-0.5 Mg/3 Ml) Confirm Administered Dose 9 ml .ROUTE .STK-MED ONE Stop: 04/20/20 19:18 Last Admin: 04/20/20 19:30 Dose: 9 ml Documented by: Albuterol/Ipratropium (Duoneb 3.0-0.5 Mg/3 Ml) 3 ml NEB Q4HRRT PRN PRN Reason: Shortness Of Breath/wheezing Last Admin: 04/21/20 10:52 Dose: 3 ml Documented by: Albuterol/Ipratropium (Duoneb 3.0-0.5 Mg/3 Ml) 3 ml NEB Q4HRRT [facility] Last Admin: 04/22/20 09:56 Dose: 3 ml Documented by: Allopurinol (Zyloprim) 300 mg PO BID [facility] Last Admin: 04/22/20 08:24 Dose: 300 mg Documented by: Apixaban (Eliquis) 5 mg PO BID [facility] Last Admin: 04/22/20 08:23 Dose: 5 mg Documented by: Bisacodyl (Dulcolax) 10 mg RECTAL ONETIME ONE Stop: 04/21/20 21:35 Last Admin: 04/21/20 21:59 Dose: 10 mg Documented by: Digoxin (Lanoxin) 500 mcg IVPUSH ONETIME ONE Stop: 04/21/20 09:57 Last Admin: 04/21/20 10:53 Dose: 500 mcg Documented by: Digoxin (Lanoxin) 250 mcg IVPUSH Q6H [facility] Stop: 04/21/20 22:01 Last Admin: 04/21/20 21:59 Dose: 250 mcg Documented by: Digoxin (Lanoxin) 250 mcg PO DAILY [facility] Last Admin: 04/22/20 08:23 Dose: 250 mcg Documented by: Diltiazem HCl (Diltiazem) 20 mg IVPUSH ONETIME ONE Stop: 04/20/20 21:03 Last Admin: 04/20/20 21:31 Dose: Not Given Documented by: Enoxaparin Sodium (Lovenox) 40 mg SUBCUT Q24H [facility] Last Admin: 04/21/20 00:04 Dose: Not Given Documented by: Folic Acid (Folic Acid) 1 mg PO DAILY [facility] Last Admin: 04/22/20 08:23 Dose: 1 mg Documented by: Furosemide (Lasix) 40 mg IVPUSH NOW ONE Stop: 04/20/20 21:02 Last Admin: 04/20/20 21:25 Dose: 40 mg Documented by: Furosemide (Lasix) 40 mg IVPUSH BIDDIURETIC [facility] Last Admin: 04/22/20 08:22 Dose: 40 mg Documented by: Heparin Sodium (Porcine) (Heparin Lock Flush 100 Units/Ml) 500 units FLUSH NOW [facility]A Stop: 04/20/20 20:06 Last Admin: 04/20/20 20:09 Dose: 500 units Documented by: Heparin Sodium (Porcine) (Heparin Lock Flush 100 Units/Ml) Confirm Administered Dose 500 units .ROUTE .STK-MED ONE Stop: 04/20/20 20:08 Last Admin: 04/20/20 23:51 Dose: Not Given Documented by: Hydromorphone HCl (Dilaudid) 2 mg PO ASDIRECTED PRN PRN Reason: Pain Hydromorphone HCl (Dilaudid) 2 mg PO Q4H PRN PRN Reason: Pain Last Admin: 04/22/20 11:59 Dose: 2 mg Documented by: Diltiazem HCl 125 mg/ Sodium (Chloride) 125 mls @ 5 mls/hr IV NOW [facility]; Protocol Diltiazem HCl 100 mg/ Sodium (Chloride) 100 mls @ 4 mls/hr IV ASDIRECTED [facility]; Protocol Last Titration: 04/21/20 00:39 Dose: 15 mls/hr, 15 mls/hr Documented by: Magnesium Sulfate 2 gm/ Premix 50 mls @ 50 mls/hr IV ONETIME ONE Stop: 04/21/20 00:38 Last Admin: 04/21/20 00:13 Dose: 50 mls/hr Documented by: Amiodarone HCl/Dextrose (Nexterone In Dextrose 360 Mg/200 Ml) 360 mg in 200 mls @ 33.333 mls/hr IV ASDIRECTED [facility]; Protocol Last Infusion: 04/22/20 12:18 Dose: 0 mg/min, 0 mls/hr Documented by: Amiodarone HCl/Dextrose 150 mg (/ Premix) 100 mls @ 400 mls/hr IV NOW ONE; Protocol Stop: 04/21/20 02:53 Last Admin: 04/21/20 02:51 Dose: 400 mls/hr Documented by: Amiodarone HCl/Dextrose (Nexterone In Dextrose 150 Mg/100 Ml) Confirm Administered Dose 100 mls @ as directed IV .STK-MED ONE Stop: 04/21/20 02:51 Last Admin: 04/21/20 09:38 Dose: Not Given Documented by: Amiodarone HCl/Dextrose (Nexterone In Dextrose 360 Mg/200 Ml) Confirm Administered Dose 360 mg in 200 mls @ as directed .ROUTE .STK-MED ONE Stop: 04/21/20 02:52 Last Admin: 04/21/20 09:38 Dose: Not Given Documented by: Lidocaine (Lidoderm 5%) 700 mg TOP Q24H [facility] Last Admin: 04/21/20 18:44 Dose: 700 mg Documented by: Lorazepam (Ativan) 1 mg PO ASDIRECTED PRN PRN Reason: Anxiety Last Admin: 04/22/20 01:22 Dose: 1 mg Documented by: Methylprednisolone Sodium Succinate (Solu-Medrol) 125 mg IVPUSH ONETIME ONE Stop: 04/20/20 19:35 Last Admin: 04/20/20 20:08 Dose: 125 mg Documented by: Metoprolol Succinate (Toprol Xl) 50 mg PO DAILY [facility] Metoprolol Succinate (Toprol Xl) 75 mg PO DAILY [facility] Last Admin: 04/21/20 10:54 Dose: Not Given Documented by: Metoprolol Succinate (Toprol Xl) 75 mg PO DAILY [facility] Last Admin: 04/21/20 10:52 Dose: 75 mg Documented by: Metoprolol Succinate (Toprol Xl) 100 mg PO DAILY [facility] Last Admin: 04/22/20 09:09 Dose: 100 mg Documented by: Metoprolol Tartrate (Lopressor) 2.5 mg IVPUSH ONETIME ONE Stop: 04/22/20 00:41 Last Admin: 04/22/20 00:48 Dose: 2.5 mg Documented by: Metoprolol Tartrate (Lopressor) 5 mg IVPUSH ONETIME ONE Stop: 04/22/20 02:47 Last Admin: 04/22/20 02:59 Dose: 5 mg Documented by: Miscellaneous Information (Remove Patch) 1 ea TRDERM Q24H [facility] Last Admin: 04/22/20 06:44 Dose: 1 ea Documented by: Multivitamins/Minerals (Prosight) 1 tab PO DAILY [facility] Last Admin: 04/22/20 08:23 Dose: 1 tab Documented by: Non-Formulary Medication (Albuterol [Proair Hfa]) 2 inh INH ASDIRECTED PRN PRN Reason: Shortness of Breath Non-Formulary Medication (Allopurinol [Zyloprim]) 1 tab PO BID [facility] Non-Formulary Medication (Sennosides [Senna]) 2 tab PO DAILY [facility] Non-Formulary Medication (Vit A/Vit C/Vit E/Zinc/Copper [Preservision]) 1 tab PO DAILY [facility] Non-Formulary Medication (Vitamin B6-Pyridoxine) 1 tab PO BEDTIME [facility] Omeprazole (Omeprazole) 20 mg PO ACBREAKFAST [facility] Last Admin: 04/22/20 06:37 Dose: 20 mg Documented by: Ondansetron HCl (Zofran) 4 mg IVPUSH Q4H PRN PRN Reason: Nausea/Vomiting Last Admin: 04/22/20 11:59 Dose: 4 mg Documented by: Pyridoxine HCl (Vitamin B6-Pyridoxine) 100 mg PO BEDTIME [facility] Last Admin: 04/21/20 21:03 Dose: 100 mg Documented by: Senna (Senna) 17.2 mg PO DAILY [facility] Last Admin: 04/22/20 08:23 Dose: 17.2 mg Documented by: Sertraline HCl (Zoloft) 50 mg PO DAILY [facility] Last Admin: 04/22/20 08:24 Dose: 50 mg Documented by: Sodium Chloride (Saline Flush) 10 ml FLUSH ASDIRECTED PRN PRN Reason: Keep Vein Open Last Admin: 04/21/20 09:42 Dose: 10 ml Documented by: Sodium Chloride (Saline Flush) 2.5 ml FLUSH ASDIRECTED PRN PRN Reason: Keep Vein Open
[2020-04-22] MEDS: HYDROmorphone 2 MG Tab PO PRN (11:59)
[2020-04-22] MEDS: Ondansetron 4 MG/2 ML SDV IVPUSH PRN (11:59)
--- NOTE | 2020-04-26 13:00 | ECHO ---
EXAM DATE: 04/20/20 PATIENT'S AGE: 69 The ECHO report has been scanned into [employer] and can be seen in this patient's EMR (Electronic Medical Record) under the REPORTS section. The report has also been scanned into PACS. DELANEY
== END 2020-04-22 12:18 | DRG 291 ==
LOC: MW.ED 19:13 → MW.ICU 21:05 → UNDOADMIN 21:41
PROVIDERS: ADMIT Student in an Organized Health Care Education/Training Program; ATTEND Student in an Organized Health Care Education/Training Program
DX: I11.0 Hypertensive heart disease with heart failure (principal); J96.01 Acute respiratory failure with hypoxia; J96.91 Respiratory failure, unspecified with hypoxia; C34.90 Malignant neoplasm of unspecified part of unspecified bronchus or lung; I48.91 Unspecified atrial fibrillation; I50.9 Heart failure, unspecified; Z20.828 Contact with and (suspected) exposure to other viral communicable diseases; J44.9 Chronic obstructive pulmonary disease, unspecified; Z95.828 Presence of other vascular implants and grafts; D69.6 Thrombocytopenia, unspecified; D64.9 Anemia, unspecified; K21.9 Gastro-esophageal reflux disease without esophagitis; F41.9 Anxiety disorder, unspecified; E66.9 Obesity, unspecified; Z96.649 Presence of unspecified artificial hip joint; Z96.659 Presence of unspecified artificial knee joint; E83.42 Hypomagnesemia; Z88.6 Allergy status to analgesic agent; Z88.5 Allergy status to narcotic agent; Z88.4 Allergy status to anesthetic agent; Z79.899 Other long term (current) drug therapy; I25.2 Old myocardial infarction; Z95.5 Presence of coronary angioplasty implant and graft; Z87.891 Personal history of nicotine dependence; Z45.2 Encounter for adjustment and management of vascular access device; Z68.26 Body mass index [BMI] 26.0-26.9, adult
CPT/HCPCS: 36415; 71045; 71275; 80053; 83735; 83880; 84100; 84484; 85025; 93005; 94640; 96374; 99285; J1642; J2930; U0002; 36430; 80048; 84443; 86850; 86900; 86901; 86920; 86921; 86922; 93306; 99291; A9270-GY; J0282; J1160; J1940; J2405; J3475; J3490; J7050; J7620-GY; P9016

== ENCOUNTER 2020-05-14 14:33 | Observation (INO) | payer MEDICARE, BC ==
[2020-05-14] MEDS ORDERED: Sodium Bicarbonate 8.4% 50 MEQ/50 ML Syringe IVPUSH ONE (14:45)
[2020-05-14] MEDS ORDERED: Sodium Chloride 0.9% 1,000 ML IV ONE (14:46)
[2020-05-14 17:45] LABS: CARBON DIOXIDE,CO2 19.2 mmol/L (21.0-32.0)
[2020-05-14] MEDS: Albuterol/Ipratropium 3.0-0.5 MG/3 ML Neb Soln NEB PRN (18:13)
[2020-05-14] MEDS ORDERED: Sodium Chloride 0.9% 1,000 ML IV SCH (18:15)
[2020-05-14] MEDS ORDERED: Ondansetron 4 MG/2 ML SDV IVPUSH PRN (18:56)
--- NOTE | 2020-05-14 19:08 | EDM.PDOC ---
ED HPI GENERAL MEDICAL PROBLEM - General Chief Complaint: General Stated Complaint: CAME FROM ONCOLOGY Time Seen by Provider: 05/14/20 14:44 - Related Data Allergies Allergy/AdvReac Type Severity Reaction Status Date / Time ibuprofen [From Advil] Allergy Vomiting Verified 05/14/20 14:37 ketorolac [From Toradol] Allergy Vomiting Verified 05/14/20 14:37 morphine AdvReac Intermediate Nausea and Verified 05/14/20 14:37 Vomiting oxycodone [Oxycodone] AdvReac Intermediate Nausea and Verified 05/14/20 14:37 Vomiting Quiana Anesthesia Allergy Vomiting Uncoded 05/14/20 14:37 Home Meds: Home Meds Albuterol [Proair HFA] 2 inh INH QID PRN 09/11/14 [History] Allopurinol [Zyloprim] 300 mg PO BID 04/07/20 [History] Folic Acid 1 mg PO DAILY 04/07/20 [History] HYDROmorphone [Dilaudid] 2 mg PO Q4H PRN 04/07/20 [History] LORazepam [Ativan] 1 tab PO DAILY PRN 04/07/20 [History] Omeprazole 20 mg PO ACBREAKFAST 04/07/20 [History] Vitamin B6-pyridOXINE 1 tab PO BEDTIME 04/07/20 [History] Diphenhyd/Lidocaine/Nystatin [Magic Mouthwash] 5 ml PO Q4H PRN 04/20/20 [History] Metoprolol Tartrate [Lopressor] 50 mg PO BID 04/20/20 [History] Sertraline [Zoloft] 50 mg PO BEDTIME 04/20/20 [History] Vit A/Vit C/Vit E/Zinc/Copper [Preservision] 1 tab PO BEDTIME 04/20/20 [History] amLODIPine [Norvasc] 5 mg PO DAILY 04/20/20 [History] Acetaminophen [Tylenol Extra Strength] 1,000 mg PO Q6H PRN 04/21/20 [History] Apixaban [Eliquis] 5 mg PO BID tablet 04/22/20 [Rx] Albuterol/Ipratropium [Combivent Respimat] 1 puff INH QID 05/14/20 [History] Albuterol/Ipratropium [DuoNeb 3.0-0.5 MG/3 ML] 3 ml NEB QID 05/14/20 [History] Amiodarone [Cordarone] 200 mg PO BID 05/14/20 [History] Ondansetron [Zofran] 4 mg PO Q4H PRN 05/14/20 [History] Ondansetron [Zofran] 8 mg PO Q8H PRN 05/14/20 [History] Prochlorperazine [Compazine] 10 mg PO Q6H PRN 05/14/20 [History] Sennosides/Docusate Sodium [Senna-S] 2 each PO BEDTIME 05/14/20 [History] Ubidecarenone [Co Q-10] 300 mg PO DAILY 05/14/20 [History] dexAMETHasone [Decadron] 40 mg PO .WE,JIM,FR 05/14/20 [History] Past Medical History HEENT History: Reports: Cataract, Impaired Vision, Macular Degeneration Cardiovascular History: Reports: Afib, Hypertension, [place], SOB on Exertion, Stents Respiratory History: 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, COPD Other Respiratory History: Stage IV lung cancer Gastrointestinal History: Reports: GERD Genitourinary History: Reports: None 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 Neurological History: Reports: None Psychiatric History: Reports: Anxiety Other Psychiatric History: takes Endocrine/Metabolic History: Reports: Obesity/BMI 30+ Hematologic History: Reports: Anemia, Blood Transfusion(s), Idiopathic Thrombocytopenia Immunologic History: Reports: None Oncologic (Cancer) History: Reports: Lung Dermatologic History: Reports: None - Infectious Disease History Infectious Disease History: Reports: Chicken Pox - Past Surgical History HEENT Surgical History: Reports: None Cardiovascular Surgical History: Reports: Coronary Artery Stent Other Cardiovascular Surgeries/Procedures: 2 stents- 2007 Respiratory Surgical History: Reports: None GI Surgical History: Reports: Colonoscopy Female Surgical History: Reports: Dilitation & Evacuation, Other (See Below) Musculoskeletal Surgical History: Reports: Hip Replacement, Knee Replacement, Shoulder Surgery, Other (See Below) Other Musculoskeletal Surgeries/Procedures:: fusion of C6-7 Social & Family History - Family History Family Medical History: Unobtainable - Tobacco Use Smoking Status *Q: Former Smoker Used Tobacco, but Quit: Yes Month/Year Tobacco Last Used: 2019 - Caffeine Use Caffeine Use: Reports: Coffee, Soda, Tea Caffeine Use Comment: drinking less- upset stomach - Recreational Drug Use Recreational Drug Use: No ED ROS GENERAL - Review of Systems Review Of Systems: See Below ED EXAM, GENERAL - Physical Exam Exam: See Below Course - Vital Signs Text/Narrative:: Patient received fluids and bicarb in the ED corrected her hyperkalemia but she still has some renal insufficiency I recommend she be admitted for fluids to help turnaround her acute kidney injury. I discussed the case with Dr. Regalado at 6:30 PM he will accept the patient. Last Recorded V/S: Last Vital Signs Temp 36.2 C 05/14/20 14:37 Pulse 80 05/14/20 18:15 Resp 18 05/14/20 18:15 BP 114/60 05/14/20 18:15 Pulse Ox 98 05/14/20 18:15 - Orders/Labs/Meds Orders: Active Orders 24 hr Category Date Time Status EKG 12 Lead [EKG Documentation Completion] [RC] STAT Care 05/14/20 14:51 Active RT Aerosol Therapy [RC] ASDIRECTED Care 05/14/20 18:02 Active Albuterol/Ipratropium [DuoNeb 3.0-0.5 MG/3 ML] Med 05/14/20 18:02 Active 3 ml NEB Q4HRRT PRN Medication Orders Albuterol/Ipratropium (Duoneb 3.0-0.5 Mg/3 Ml) 3 ml NEB Q4HRRT PRN PRN Reason: Dyspnea Last Admin: 05/14/20 18:13 Dose: 3 ml Documented by: STOCALL Sodium Chloride (Normal Saline) 1,000 mls @ 125 mls/hr IV ASDIRECTED [facility] Ondansetron HCl (Zofran) 4 mg IVPUSH Q4H PRN PRN Reason: Nausea Labs: Laboratory Tests 05/14/20 Range/Units 17:03 Sodium 133 L (136-145) mmol/L Potassium 5.0 (3.5-5.1) mmol/L Chloride 102 (98-107) mmol/L Carbon Dioxide 19.2 L (21.0-32.0) mmol/L BUN 69 H (7.0-18.0) mg/dL Creatinine 2.2 H (0.6-1.0) mg/dL Est Cr Clr Drug Dosing 17.33 mL/min Estimated GFR (MDRD) 22.1 ml/min Glucose 140 H (74-106) mg/dL Calcium 8.5 (8.5-10.1) mg/dL Meds: Medications Generic Name Dose Route Start Last Admin Trade Name Freq PRN Reason Stop Dose Admin Albuterol/Ipratropium 3 ml 05/14/20 18:02 05/14/20 18:13 Duoneb 3.0-0.5 Mg/3 Ml NEB 3 ml Q4HRRT PRN Administration Dyspnea Sodium Chloride 1,000 mls @ 125 mls/hr 05/14/20 19:00 Normal Saline IV ASDIRECTED HUNTER Ondansetron HCl 4 mg 05/14/20 18:56 Zofran IVPUSH Q4H PRN Nausea Discontinued Medications Generic Name Dose Route Start Last Admin Trade Name Fremicki PRN Reason Stop Dose Admin Sodium Chloride 1,000 mls @ 999 mls/hr 05/14/20 14:46 05/14/20 15:35 Normal Saline IV 05/14/20 15:46 999 mls/hr .Bolus ONE Administration Sodium Chloride 1,000 mls @ 150 mls/hr 05/14/20 18:15 05/14/20 18:25 Normal Saline IV 150 mls/hr ASDIRECTED HUNTER Administration Sodium Bicarbonate 50 meq 05/14/20 14:45 05/14/20 15:35 Sodium Bicarbonate 8.4% IVPUSH 05/14/20 14:46 50 meq ONETIME ONE Administration Departure - Departure Time of Disposition: 18:30 Disposition: Refer to Observation Condition: Good, Fair Clinical Impression: Acute kidney injury - Discharge Information Sepsis Event Note (ED) - Evaluation Sepsis Screening Result: No Definite Risk - Focused Exam Vital Signs: Vital Signs Temp Pulse Resp BP Pulse Ox 05/14/20 17:30 74 18 102/52 L 100 05/14/20 14:37 36.2 C 74 18 109/45 L 95 - My Orders Last 24 Hours: My Active Orders 05/14/20 14:51 EKG 12 Lead [EKG Documentation Completion] [RC] STAT 05/14/20 18:02 RT Aerosol Therapy [RC] ASDIRECTED Albuterol/Ipratropium [DuoNeb 3.0-0.5 MG/3 ML] 3 ml NEB Q4HRRT PRN - Assessment/Plan Last 24 Hours: My Active Orders 05/14/20 14:51 EKG 12 Lead [EKG Documentation Completion] [RC] STAT 05/14/20 18:02 RT Aerosol Therapy [RC] ASDIRECTED Albuterol/Ipratropium [DuoNeb 3.0-0.5 MG/3 ML] 3 ml NEB Q4HRRT PRN
[2020-05-14] MEDS ORDERED: Sertraline 50 MG Tab PO SCH (21:00)
[2020-05-14] MEDS: Sodium Chloride 0.9% 1,000 ML IV SCH (21:15)
[2020-05-14] MEDS ORDERED: Albuterol/Ipratropium 3.0-0.5 MG/3 ML Neb Soln NEB PRN (22:21)
[2020-05-14] MEDS ORDERED: Prochlorperazine 10 MG Tab PO PRN (22:21)
[2020-05-14] MEDS ORDERED: Acetaminophen 500 MG Tab PO PRN (22:21)
[2020-05-14] MEDS ORDERED: Albuterol 6.7 GM Inhaler INH PRN (22:21)
[2020-05-14] MEDS ORDERED: Diphenhydramine/Lidocaine/Nystatin Suspension 237 ML Bottle PO PRN (22:21)
[2020-05-14] MEDS ORDERED: LORazepam 1 MG Tab PO PRN (22:21)
[2020-05-14] MEDS ORDERED: HYDROmorphone 2 MG Tab PO PRN (22:21)
[2020-05-14] MEDS ORDERED: Ondansetron 4 MG Tab PO PRN (22:21)
--- NOTE | 2020-05-14 22:32 | PCM.HP.2 ---
H&P History of Present Illness - General Date of Service: 05/14/20 Admit Problem/Dx: Admission Diagnosis/Problem Admission Diagnosis/Problem Renal failure - History of Present Illness Initial Comments - Free Text/Narative: 69-year-old female with pmh of lung cancer, current undergoing chemotherapy, COPD, and atrial fibrillation, who the past week had a headache with nausea and vomiting thought secondary to chemotherapy. Patient took dexamethasone which resolved her headache and her nausea has improved. She did not eat or drink much the past week so came to the cancer center today for IV fluids. She was se nt to the ER when discovered to have an increase in her creatinine to 2.6 and an elevated potassium of 5.5. She was give Fluids with Bicarb in the ED and repeat potassium was 5.0. Patient also reported stopping Lasix several weeks ago but not stopping her potassium supplementation until mid week. - Related Data Allergies/Adverse Reactions: Allergies Allergy/AdvReac Type Severity Reaction Status Date / Time ibuprofen [From Advil] Allergy Vomiting Verified 05/14/20 20:50 ketorolac [From Toradol] Allergy Vomiting Verified 05/14/20 20:50 morphine AdvReac Intermediate Nausea and Verified 05/14/20 20:50 Vomiting oxycodone [Oxycodone] AdvReac Intermediate Nausea and Verified 05/14/20 20:50 Vomiting Quiana Anesthesia Allergy Vomiting Uncoded 05/14/20 20:50 Home Medications: Home Meds Albuterol [Proair HFA] 2 inh INH QID PRN 09/11/14 [History] Allopurinol [Zyloprim] 300 mg PO BID 04/07/20 [History] Folic Acid 1 mg PO DAILY 04/07/20 [History] HYDROmorphone [Dilaudid] 2 mg PO Q4H PRN 04/07/20 [History] LORazepam [Ativan] 1 tab PO DAILY PRN 04/07/20 [History] Omeprazole 20 mg PO ACBREAKFAST 04/07/20 [History] Vitamin B6-pyridOXINE 1 tab PO BEDTIME 04/07/20 [History] Diphenhyd/Lidocaine/Nystatin [Magic Mouthwash] 5 ml PO Q4H PRN 04/20/20 [History] Metoprolol Tartrate [Lopressor] 50 mg PO BID 04/20/20 [History] Sertraline [Zoloft] 50 mg PO BEDTIME 04/20/20 [History] Vit A/Vit C/Vit E/Zinc/Copper [Preservision] 1 tab PO BEDTIME 04/20/20 [History] amLODIPine [Norvasc] 5 mg PO DAILY 04/20/20 [History] Acetaminophen [Tylenol Extra Strength] 1,000 mg PO Q6H PRN 04/21/20 [History] Apixaban [Eliquis] 5 mg PO BID tablet 04/22/20 [Rx] Albuterol/Ipratropium [Combivent Respimat] 1 puff INH QID 05/14/20 [History] Albuterol/Ipratropium [DuoNeb 3.0-0.5 MG/3 ML] 3 ml NEB QID 05/14/20 [History] Amiodarone [Cordarone] 200 mg PO BID 05/14/20 [History] Ondansetron [Zofran] 4 mg PO Q4H PRN 05/14/20 [History] Ondansetron [Zofran] 8 mg PO Q8H PRN 05/14/20 [History] Prochlorperazine [Compazine] 10 mg PO Q6H PRN 05/14/20 [History] Sennosides/Docusate Sodium [Senna-S] 2 each PO BEDTIME 05/14/20 [History] Ubidecarenone [Co Q-10] 300 mg PO DAILY 05/14/20 [History] dexAMETHasone [Decadron] 40 mg PO .WE,JIM,FR 05/14/20 [History] Past Medical History HEENT History: Reports: Cataract, Impaired Vision, Macular Degeneration Cardiovascular History: Reports: Afib, Hypertension, [place], SOB on Exertion, Stents Respiratory History: 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 Endocrine/Metabolic History: Reports: Obesity/BMI 30+ Hematologic History: Reports: Anemia, Blood Transfusion(s), Idiopathic Thrombocytopenia Immunologic History: Reports: None Oncologic (Cancer) History: Reports: Lung Dermatologic History: Reports: None - Infectious Disease History Infectious Disease History: Reports: Chicken Pox - Past Surgical History HEENT Surgical History: Reports: None Cardiovascular Surgical History: Reports: Coronary Artery Stent Other Cardiovascular Surgeries/Procedures: 2 stents- 2007 Respiratory Surgical History: Reports: None GI Surgical History: Reports: Colonoscopy Female Surgical History: Reports: Dilitation & Evacuation, Other (See Below) Musculoskeletal Surgical History: Reports: Hip Replacement, Knee Replacement, Shoulder Surgery, Other (See Below) Other Musculoskeletal Surgeries/Procedures:: fusion of C6-7 Social & Family History - Family History Family Medical History: Unobtainable - Tobacco Use Smoking Status *Q: Former Smoker Used Tobacco, but Quit: Yes Month/Year Tobacco Last Used: 03/2020 - Caffeine Use Caffeine Use: Reports: Coffee Caffeine Use Comment: every other day - Recreational Drug Use Recreational Drug Use: No H&P Review of Systems - Review of Systems: Review Of Systems: Comprehensive ROS is negative, except as noted in HPI. Exam - Exam Exam: See Below - Vital Signs Vital Signs: Last Vital Signs Temp 36.5 C 05/14/20 20:46 Pulse 83 05/14/20 20:46 Resp 16 05/14/20 20:46 BP 111/95 H 05/14/20 20:46 Pulse Ox 100 05/14/20 20:46 Weight: 62.006 kg - Exam General: Alert, Oriented HEENT: Mucosa Moist & Caroleen Lungs: Clear to Auscultation, Normal Respiratory Effort Cardiovascular: Regular Rate, Regular Rhythm GI/Abdominal Exam: Normal Bowel Sounds, Soft, Non-Tender Extremities: Normal Range of Motion, Non-Tender, No Pedal Edema Skin: Warm, Dry, Intact Neurological: Cranial Nerves Intact, Normal Gait - Patient Data Lab Results Last 24 hrs: Laboratory Results - last 24 hr 05/14/20 05/14/20 Range/Units 17:03 18:56 Sodium 133 L (136-145) mmol/L Potassium 5.0 (3.5-5.1) mmol/L Chloride 102 (98-107) mmol/L Carbon Dioxide 19.2 L (21.0-32.0) mmol/L BUN 69 H (7.0-18.0) mg/dL Creatinine 2.2 H (0.6-1.0) mg/dL Est Cr Clr Drug Dosing 17.33 mL/min Estimated GFR (MDRD) 22.1 ml/min Glucose 140 H (74-106) mg/dL Calcium 8.5 (8.5-10.1) mg/dL SARS Virus RNA (PCR) NEGATIVE (NEGATIVE) Result Diagrams: 05/14/20 17:03 Sepsis Event Note - Evaluation Sepsis Screening Result: No Definite Risk - Focused Exam Vital Signs: Vital Signs Temp Pulse Resp BP BP Pulse Ox 05/14/20 20:46 36.5 C 83 16 111/95 H 100 05/14/20 18:15 80 18 114/60 98 05/14/20 17:30 74 18 102/52 L 100 05/14/20 14:37 36.2 C 74 18 109/45 L 95 Date Exam was Performed: 05/14/20 Time Exam was Performed: 22:26 Problem List Initiated/Reviewed/Updated: Yes Orders Last 24hrs: Active Orders 24 hr Category Date Time Status Admission Status [Patient Status] [ADT] Stat ADT 05/14/20 18:13 Active Antiembolic Devices [RC] PER UNIT ROUTINE Care 05/14/20 22:25 Active EKG 12 Lead [EKG Documentation Completion] [RC] STAT Care 05/14/20 14:51 Active Oxygen Therapy [RC] PRN Care 05/14/20 22:25 Active RT Aerosol Therapy [RC] ASDIRECTED Care 05/14/20 18:02 Active RT Aerosol Therapy [RC] ASDIRECTED Care 05/14/20 22:23 Active RT Post Treatment Assessment [RC] Click to Edit Care 05/14/20 22:23 Active RT Pre-Treatment Assessment [RC] Click to Edit Care 05/14/20 22:23 Active Telemetry Monitoring [Cardiac Monitoring] [RC] . Care 05/14/20 18:54 Active DIRECTED Up ad Mary Lou [RC] ASDIRECTED Care 05/14/20 22:25 Active VTE/DVT Education [RC] PER UNIT ROUTINE Care 05/14/20 22:25 Active Vital Signs [RC] Q4H Care 05/14/20 22:25 Active Regular Diet [DIET] Diet 05/15/20 Breakfast Active BASIC METABOLIC PANEL,BMP [CHEM] AM Lab 05/15/20 05:11 Ordered CBC WITH AUTO DIFF [HEME] AM Lab 05/15/20 05:11 Ordered Acetaminophen [Tylenol Extra Strength] Med 05/14/20 22:21 Ordered 1,000 mg PO Q6H PRN Albuterol [Proventil HFA] Med 05/14/20 22:21 Ordered DOSE gm INH QID PRN Albuterol/Ipratropium [DuoNeb 3.0-0.5 MG/3 ML] Med 05/14/20 22:21 Ordered 3 ml NEB Q4H PRN Albuterol/Ipratropium [DuoNeb 3.0-0.5 MG/3 ML] Med 05/14/20 18:02 Active 3 ml NEB Q4HRRT PRN Amiodarone [Cordarone] Med 05/14/20 22:30 Ordered 400 mg PO BID Diphenhyd/Lidocaine/Nystatin [Magic Mouthwash] Med 05/14/20 22:21 Ordered 5 ml PO Q4H PRN Docusate Sodium/Sennosides [Senna Plus] Med 05/15/20 21:00 Ordered DOSE tab PO BEDTIME Folic Acid Med 05/15/20 09:00 Ordered 1 mg PO DAILY HYDROmorphone [Dilaudid] Med 05/14/20 22:21 Ordered 2 mg PO Q4H PRN LORazepam [Ativan] Med 05/14/20 22:21 Ordered 1 mg PO DAILY PRN Metoprolol Tartrate [Lopressor] Med 05/14/20 22:30 Ordered 50 mg PO BID Ondansetron [Zofran] Med 05/14/20 18:56 Active 4 mg IVPUSH Q4H PRN Ondansetron [Zofran] Med 05/14/20 22:21 Ordered 4 mg PO Q4H PRN Prochlorperazine [Compazine] Med 05/14/20 22:21 Ordered 10 mg PO Q6H PRN Sertraline [Zoloft] Med 05/14/20 21:00 Ordered 50 mg PO BEDTIME Sodium Chloride 0.9% [Normal Saline] 1,000 ml Med 05/14/20 19:00 Active IV ASDIRECTED allopurinoL [Zyloprim] Med 05/14/20 22:30 Ordered 300 mg PO BID amLODIPine [Norvasc] Med 05/15/20 09:00 Ordered 5 mg PO DAILY Sequential Compression Device [OM.PC] Per Unit Routine Oth 05/14/20 22:25 Ordered Resuscitation Status Routine Resus Stat 05/14/20 22:25 Ordered Medication Orders Acetaminophen (Tylenol Extra Strength) 1,000 mg PO Q6H PRN PRN Reason: Pain Albuterol (Proventil Hfa) gm INH QID PRN PRN Reason: Shortness of Breath Albuterol/Ipratropium (Duoneb 3.0-0.5 Mg/3 Ml) 3 ml NEB Q4HRRT PRN PRN Reason: Dyspnea Last Admin: 05/14/20 18:13 Dose: 3 ml Documented by: STOCALL Albuterol/Ipratropium (Duoneb 3.0-0.5 Mg/3 Ml) 3 ml NEB Q4H PRN PRN Reason: Wheezing Allopurinol (Zyloprim) 300 mg PO BID [facility] Amiodarone HCl (Cordarone) 400 mg PO BID [facility]TER Amlodipine Besylate (Norvasc) 5 mg PO DAILY [facility] Diphenhydramine/Nystatin/Lidocaine (Magic Mouthwash) 5 ml PO Q4H PRN PRN Reason: mouth soreness/PAIN Folic Acid (Folic Acid) 1 mg PO DAILY [facility]UNTER Hydromorphone HCl (Dilaudid) 2 mg PO Q4H PRN PRN Reason: Pain Sodium Chloride (Normal Saline) 1,000 mls @ 125 mls/hr IV ASDIRECTED HUNTER Last Admin: 05/14/20 21:15 Dose: 125 mls/hr Documented by: SAUL Lorazepam (Ativan) 1 mg PO DAILY PRN PRN Reason: Anxiety Metoprolol Tartrate (Lopressor) 50 mg PO BID [facility] Ondansetron HCl (Zofran) 4 mg IVPUSH Q4H PRN PRN Reason: Nausea Ondansetron HCl (Zofran) 4 mg PO Q4H PRN PRN Reason: Nausea Prochlorperazine Maleate (Compazine) 10 mg PO Q6H PRN PRN Reason: Nausea Senna/Docusate Sodium (Senna Plus) tab PO BEDTIME [facility] Sertraline HCl (Zoloft) 50 mg PO BEDTIME [facility] Assessment/Plan Comment:: 69 yo female admitted for acute kidney injury and hyperkalemia. She has dehydration 2/2 to nausea from chemotherapy which has resolved. We will continue to hydrate overnight and recheck BMP tomorrow morning.
[2020-05-14] MEDS: Allopurinol 300 MG Tab PO SCH (23:00)
[2020-05-14] MEDS: Amiodarone 200 MG Tab PO SCH (23:01)
[2020-05-14] MEDS: Metoprolol Tartrate 50 MG Tab PO SCH (23:05)
[2020-05-15] MEDS: Sodium Chloride 0.9% 1,000 ML IV SCH (01:43)
[2020-05-15 06:56] LABS: CARBON DIOXIDE,CO2 19.5 mmol/L (21.0-32.0); POTASSIUM,K 5.2 mmol/L (3.5-5.1)
[2020-05-15] MEDS: Metoprolol Tartrate 50 MG Tab PO SCH (08:42)
[2020-05-15] MEDS: Allopurinol 300 MG Tab PO SCH (08:43)
[2020-05-15] MEDS: Amiodarone 200 MG Tab PO SCH (08:45)
[2020-05-15] MEDS ORDERED: Folic Acid 1 MG Tab PO SCH (09:00)
[2020-05-15] MEDS ORDERED: amLODIPine 2.5 MG Tab PO SCH (09:00)
--- NOTE | 2020-05-15 09:52 | PCM.DCSUM1 ---
Discharge Summary - Discharge Data Discharge Date: 05/15/20 Discharge Disposition: Home, Self-Care 01 Condition: Fair - Referral to Home Health Primary Care Physician: PCP None - Patient Summary/Data Hospital Course: 69-year-old female with pmh of lung cancer, current undergoing chemotherapy, COPD, and atrial fibrillation, who was admitted for acute kidney injury, and dehydration. For the past week she had a headache with nausea and vomiting thought secondary to chemotherapy. Patient took dexamethasone which resolved her headache and nausea She did not eat or drink much the past week so came to the cancer center for IV fluids. She was sent to the ER when discovered to have an increase in her creatinine to 2.6 and an elevated potassium of 5.5. She was give Fluids with Bicarb in the ED and repeat potassium was 5.0. Patient also reported stopping Lasix several weeks ago but not stopping her potassium supplementation until mid week. She was hydrated overnight with normal saline. Creatinine this morning is 1.6. This patient is feeling better and requesting discharge home. Her Hgb dropped to 6.8 so she agreed to two unit pRBC transfusion before discharge. Her platelets decreased to 21,000 so she was instructed to hold her Eliquis. - Discharge Plan Home Medications: Home Meds Albuterol [Proair HFA] 2 inh INH QID PRN 09/11/14 [History] Allopurinol [Zyloprim] 300 mg PO BID 04/07/20 [History] Folic Acid 1 mg PO DAILY 04/07/20 [History] HYDROmorphone [Dilaudid] 2 mg PO Q4H PRN 04/07/20 [History] LORazepam [Ativan] 1 tab PO DAILY PRN 04/07/20 [History] Omeprazole 20 mg PO ACBREAKFAST 04/07/20 [History] Vitamin B6-pyridOXINE 1 tab PO BEDTIME 04/07/20 [History] Diphenhyd/Lidocaine/Nystatin [Magic Mouthwash] 5 ml PO Q4H PRN 04/20/20 [History] Metoprolol Tartrate [Lopressor] 50 mg PO BID 04/20/20 [History] Sertraline [Zoloft] 50 mg PO BEDTIME 04/20/20 [History] Vit A/Vit C/Vit E/Zinc/Copper [Preservision] 1 tab PO BEDTIME 04/20/20 [History] amLODIPine [Norvasc] 5 mg PO DAILY 04/20/20 [History] Acetaminophen [Tylenol Extra Strength] 1,000 mg PO Q6H PRN 04/21/20 [History] Apixaban [Eliquis] 5 mg PO BID tablet 04/22/20 [Rx] Albuterol/Ipratropium [Combivent Respimat] 1 puff INH QID 05/14/20 [History] Albuterol/Ipratropium [DuoNeb 3.0-0.5 MG/3 ML] 3 ml NEB QID 05/14/20 [History] Amiodarone [Cordarone] 200 mg PO BID 05/14/20 [History] Ondansetron [Zofran] 4 mg PO Q4H PRN 05/14/20 [History] Ondansetron [Zofran] 8 mg PO Q8H PRN 05/14/20 [History] Prochlorperazine [Compazine] 10 mg PO Q6H PRN 05/14/20 [History] Sennosides/Docusate Sodium [Senna-S] 2 each PO BEDTIME 05/14/20 [History] Ubidecarenone [Co Q-10] 300 mg PO DAILY 05/14/20 [History] dexAMETHasone [Decadron] 40 mg PO .JIM BOWDEN, 05/14/20 [History] Referrals: Reed Núñez MD [Physician] - Alli Prado MD [Ordering Only Provider] - - Patient Data Vitals - Most Recent: Last Vital Signs Temp 37.3 C 05/15/20 07:20 Pulse 80 05/15/20 08:42 Resp 16 05/15/20 07:20 BP 106/57 L 05/15/20 08:44 Pulse Ox 94 L 05/15/20 07:20 Weight - Most Recent: 62.006 kg I&O - Last 24 hours: Intake & Output 05/14/20 05/15/20 05/15/20 22:59 06:59 14:59 Intake Total 740 Output Total 750 Balance -10 Lab Results - Last 24 hrs: Laboratory Results - last 24 hr 05/14/20 05/14/20 05/15/20 Range/Units 17:03 18:56 05:55 WBC 1.59 L (4.0-11.0) K/uL RBC 2.33 L (4.30-5.90) M/uL Hgb 6.8 L (12.0-16.0) g/dL Hct 21.0 L (36.0-46.0) % MCV 90.1 (80.0-98.0) fL MCH 29.2 (27.0-32.0) pg MCHC 32.4 (31.0-37.0) g/dL RDW Std Deviation 58.8 (28.0-62.0) fl RDW Coeff of Shazia 18 H (11.0-15.0) % Plt Count 21 L (150-400) K/uL MPV 11.20 (7.40-12.00) fL Add Manual Diff YES Neutrophils % (Manual) 80 (48.0-80.0) % Lymphocytes % (Manual) 8 L (16.0-40.0) % Monocytes % (Manual) 12 (0.0-15.0) % Nucleated RBC % 0.0 /100WBC Absolute Seg Neuts 1.3 L (1.4-5.7) Lymphocytes # (Manual) 0.1 L (0.6-2.4) Monocytes # (Manual) 0.2 (0.0-0.8) Nucleated RBCs # 0 K/uL Sodium 133 L (136-145) mmol/L Potassium 5.0 (3.5-5.1) mmol/L Chloride 102 (98-107) mmol/L Carbon Dioxide 19.2 L (21.0-32.0) mmol/L BUN 69 H (7.0-18.0) mg/dL Creatinine 2.2 H (0.6-1.0) mg/dL Est Cr Clr Drug Dosing 17.33 mL/min Estimated GFR (MDRD) 22.1 ml/min Glucose 140 H (74-106) mg/dL Calcium 8.5 (8.5-10.1) mg/dL SARS Virus RNA (PCR) NEGATIVE (NEGATIVE) 05/15/20 Range/Units 05:55 WBC (4.0-11.0) K/uL RBC (4.30-5.90) M/uL Hgb (12.0-16.0) g/dL Hct (36.0-46.0) % MCV (80.0-98.0) fL MCH (27.0-32.0) pg MCHC (31.0-37.0) g/dL RDW Std Deviation (28.0-62.0) fl RDW Coeff of Shazia (11.0-15.0) % Plt Count (150-400) K/uL MPV (7.40-12.00) fL Add Manual Diff Neutrophils % (Manual) (48.0-80.0) % Lymphocytes % (Manual) (16.0-40.0) % Monocytes % (Manual) (0.0-15.0) % Nucleated RBC % /100WBC Absolute Seg Neuts (1.4-5.7) Lymphocytes # (Manual) (0.6-2.4) Monocytes # (Manual) (0.0-0.8) Nucleated RBCs # K/uL Sodium 137 (136-145) mmol/L Potassium 5.2 H (3.5-5.1) mmol/L Chloride 107 (98-107) mmol/L Carbon Dioxide 19.5 L (21.0-32.0) mmol/L BUN 55 H (7.0-18.0) mg/dL Creatinine 1.6 H (0.6-1.0) mg/dL Est Cr Clr Drug Dosing 26.25 mL/min Estimated GFR (MDRD) 32.0 ml/min Glucose 120 H (74-106) mg/dL Calcium 8.2 L (8.5-10.1) mg/dL SARS Virus RNA (PCR) (NEGATIVE) Med Orders - Current: Current Medications Acetaminophen (Tylenol Extra Strength) 1,000 mg PO Q6H PRN PRN Reason: Pain Albuterol (Proventil Hfa) 0 gm INH QID PRN PRN Reason: Shortness of Breath Albuterol/Ipratropium (Duoneb 3.0-0.5 Mg/3 Ml) 3 ml NEB Q4HRRT PRN PRN Reason: Dyspnea Last Admin: 05/14/20 18:13 Dose: 3 ml Documented by: Albuterol/Ipratropium (Duoneb 3.0-0.5 Mg/3 Ml) 3 ml NEB Q4H PRN PRN Reason: Wheezing Allopurinol (Zyloprim) 300 mg PO BID [facility]UNTER Last Admin: 05/15/20 08:43 Dose: 300 mg Documented by: Amiodarone HCl (Cordarone) 400 mg PO BID [facility] Last Admin: 05/15/20 08:45 Dose: 400 mg Documented by: Amlodipine Besylate (Norvasc) 5 mg PO DAILY [facility] Last Admin: 05/15/20 08:44 Dose: 5 mg Documented by: Diphenhydramine/Nystatin/Lidocaine (Magic Mouthwash) 5 ml PO Q4H PRN PRN Reason: mouth soreness/PAIN Folic Acid (Folic Acid) 1 mg PO DAILY [facility] Hydromorphone HCl (Dilaudid) 2 mg PO Q4H PRN PRN Reason: Pain Sodium Chloride (Normal Saline) 1,000 mls @ 125 mls/hr IV ASDIRECTED [facility] Last Admin: 05/15/20 01:43 Dose: 125 mls/hr Documented by: Lorazepam (Ativan) 1 mg PO DAILY PRN PRN Reason: Anxiety Metoprolol Tartrate (Lopressor) 50 mg PO BID [facility] Last Admin: 05/15/20 08:42 Dose: 50 mg Documented by: Ondansetron HCl (Zofran) 4 mg IVPUSH Q4H PRN PRN Reason: Nausea Ondansetron HCl (Zofran) 4 mg PO Q4H PRN PRN Reason: Nausea Prochlorperazine Maleate (Compazine) 10 mg PO Q6H PRN PRN Reason: Nausea Senna/Docusate Sodium (Senna Plus) 2 tab PO BEDTIME [facility] Sertraline HCl (Zoloft) 50 mg PO BEDTIME [facility] Last Admin: 05/14/20 23:01 Dose: 50 mg Documented by: Discontinued Medications Sodium Chloride (Normal Saline) 1,000 mls @ 999 mls/hr IV .Bolus ONE Stop: 05/14/20 15:46 Last Admin: 05/14/20 15:35 Dose: 999 mls/hr Documented by: Sodium Chloride (Normal Saline) 1,000 mls @ 150 mls/hr IV ASDIRECTED [facility] Last Admin: 05/14/20 18:25 Dose: 150 mls/hr Documented by: Sodium Bicarbonate (Sodium Bicarbonate 8.4%) 50 meq IVPUSH ONETIME ONE Stop: 05/14/20 14:46 Last Admin: 05/14/20 15:35 Dose: 50 meq Documented by:
[2020-05-15] MEDS: Albuterol/Ipratropium 3.0-0.5 MG/3 ML Neb Soln NEB PRN ×2 (10:21→17:09)
== END 2020-05-15 20:10 | disposition home or self-care (01) ==
LOC: MW.ED 14:33 → MW.MS 18:13
PROVIDERS: ADMIT Internal Medicine; ATTEND Internal Medicine
DX: N17.9 Acute kidney failure, unspecified (principal); E87.5 Hyperkalemia; E86.0 Dehydration; R11.2 Nausea with vomiting, unspecified; R51 Headache; C34.90 Malignant neoplasm of unspecified part of unspecified bronchus or lung; J44.9 Chronic obstructive pulmonary disease, unspecified; I48.91 Unspecified atrial fibrillation; I10 Essential (primary) hypertension; K21.9 Gastro-esophageal reflux disease without esophagitis; F41.9 Anxiety disorder, unspecified; E66.9 Obesity, unspecified; Z20.828 Contact with and (suspected) exposure to other viral communicable diseases; Z87.891 Personal history of nicotine dependence; Z88.5 Allergy status to narcotic agent; Z88.6 Allergy status to analgesic agent; Z79.899 Other long term (current) drug therapy; Z68.25 Body mass index [BMI] 25.0-25.9, adult
CPT/HCPCS: 36415; 36430; 80048; 85025; 86850; 86900; 86901; 86920; 86921; 86922; 93005; 94640; A9270; J7030; P9016; U0002; 96361; 96374; 99284-25; G0378; J7620-GY

== ENCOUNTER 2020-06-29 09:16 | Inpatient (IN) | payer MEDICARE, BC ==
[2020-06-29] MEDS ORDERED: Sodium Chloride 0.9% 10 ML Syringe FLUSH PRN (09:26)
[2020-06-29] MEDS ORDERED: Sodium Chloride 0.9% 2.5 ML Syringe FLUSH PRN (09:26)
[2020-06-29] MEDS ORDERED: Furosemide 40 MG/4 ML VIAL IVPUSH ONE (09:31)
[2020-06-29] MEDS ORDERED: Dexamethasone 10 MG/ML SDV IVPUSH ONE (09:37)
[2020-06-29] MEDS ORDERED: Albuterol/Ipratropium 3.0-0.5 MG/3 ML Neb Soln NEB ONE (09:37)
--- NOTE | 2020-06-29 09:51 | EDM.PDOC ---
ED HPI GENERAL MEDICAL PROBLEM - General Chief Complaint: Respiratory Problem Stated Complaint: sob Time Seen by Provider: 06/29/20 09:20 - History of Present Illness INITIAL COMMENTS - FREE TEXT/NARRATIVE: History of present illness: Patient presents from the cancer center in the hospital with dyspnea. She is a lung cancer patient who was noted on outpatient labs to be profoundly anemic when she presented today for transfusion of 2 units of packed red blood cells and 1 unit of platelet she was noted to be in some mild respiratory distress so she was brought to the emergency department for further treatment and evaluation . States that she has had increased swelling peripherally and increased shortness of breath over the past week. She denies any fever chills no increased cough no nausea or vomiting or diarrhea but she has had some sharp chest pain left-sided substernally that increases with deep breath. Review of systems: As per history of present illness and below otherwise all systems reviewed and negative. Past medical history: As per history of present illness and as reviewed below otherwise noncontributory. Surgical history: As per history of present illness and as reviewed below otherwise nonco ntributory. Social history: No reported history of drug or alcohol abuse. Family history: As per history of present illness and as reviewed below otherwise noncontributory. Physical exam: HEENT: Atraumatic, normocephalic, pupils reactive, negative for conjunctival pallor or scleral icterus, mucous membranes moist, throat clear, neck supple, nontender, trachea midline. Lungs: Clear to auscultation, breath sounds equal bilaterally, chest nontender. Heart: S1S2, regular, negative for clicks, rubs, or JVD. Abdomen: Soft, nondistended, nontender. Negative for masses or hepatosplenomegaly. Negative for costovertebral tenderness. Pelvis: Stable nontender. Genitourinary: Deferred. Rectal: Deferred. Extremities: Atraumatic, negative for cords or calf pain. Neurovascular unremarkable. Neuro: Awake, alert, oriented. Cranial nerves II through XII unremarkable. Cerebellum unremarkable. Motor and sensory unremarkable throughout. Exam nonfocal. Diagnostics: [] Therapeutics: [] Impression: Anemia, dyspnea [] Plan: We will transfuse the blood products that were preordered by oncology and treat her with Decadron DuoNeb Lasix while awaiting lab studies [] Definitive disposition and diagnosis as appropriate pending reevaluation and review of above. Left Chest Pain Score (Numeric/FACES): 5 - Related Data Allergies Allergy/AdvReac Type Severity Reaction Status Date / Time ibuprofen [From Advil] Allergy Vomiting Verified 06/29/20 09:27 ketorolac [From Toradol] Allergy Vomiting Verified 06/29/20 09:27 morphine AdvReac Intermediate Nausea and Verified 06/29/20 09:27 Vomiting oxycodone [Oxycodone] AdvReac Intermediate Nausea and Verified 06/29/20 09:27 Vomiting Quiana Anesthesia Allergy Vomiting Uncoded 06/29/20 09:27 Home Meds: Home Meds Albuterol [Proair HFA] 2 inh INH QID PRN 09/11/14 [History] Allopurinol [Zyloprim] 300 mg PO BID 04/07/20 [History] Folic Acid 1 mg PO DAILY 04/07/20 [History] HYDROmorphone [Dilaudid] 2 mg PO Q4H PRN 04/07/20 [History] LORazepam [Ativan] 1 tab PO DAILY PRN 04/07/20 [History] Omeprazole 20 mg PO ACBREAKFAST 04/07/20 [History] Vitamin B6-pyridOXINE 1 tab PO BEDTIME 04/07/20 [History] Diphenhyd/Lidocaine/Nystatin [Magic Mouthwash] 5 ml PO Q4H PRN 04/20/20 [History] Metoprolol Tartrate [Lopressor] 50 mg PO BID 04/20/20 [History] Sertraline [Zoloft] 50 mg PO BEDTIME 04/20/20 [History] Vit A/Vit C/Vit E/Zinc/Copper [Preservision] 1 tab PO BEDTIME 04/20/20 [History] amLODIPine [Norvasc] 5 mg PO DAILY 04/20/20 [History] Acetaminophen [Tylenol Extra Strength] 1,000 mg PO Q6H PRN 04/21/20 [History] Albuterol/Ipratropium [Combivent Respimat] 1 puff INH QID 05/14/20 [History] Albuterol/Ipratropium [DuoNeb 3.0-0.5 MG/3 ML] 3 ml NEB QID 05/14/20 [History] Amiodarone [Cordarone] 200 mg PO BID 05/14/20 [History] Ondansetron [Zofran] 4 mg PO Q4H PRN 05/14/20 [History] Ondansetron [Zofran] 8 mg PO Q8H PRN 05/14/20 [History] Prochlorperazine [Compazine] 10 mg PO Q6H PRN 05/14/20 [History] Sennosides/Docusate Sodium [Senna-S] 2 each PO BEDTIME 05/14/20 [History] Ubidecarenone [Co Q-10] 300 mg PO DAILY 05/14/20 [History] dexAMETHasone [Decadron] 40 mg PO .WE,JIM,FR 05/14/20 [History] Past Medical History HEENT History: Reports: Cataract, Impaired Vision, Macular Degeneration Cardiovascular History: Reports: Afib, Hypertension, [place], SOB on Exertion, Stents 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 Endocrine/Metabolic History: Reports: Obesity/BMI 30+ Hematologic History: Reports: Anemia, Blood Transfusion(s), Idiopathic Thrombocytopenia Immunologic History: Reports: None Oncologic (Cancer) History: Reports: Lung Dermatologic History: Reports: None - Infectious Disease History Infectious Disease History: Reports: Measles, Mumps - Past Surgical History HEENT Surgical History: Reports: None Cardiovascular Surgical History: Reports: Coronary Artery Stent Other Cardiovascular Surgeries/Procedures: 2 stents- 2006 Respiratory Surgical History: Reports: None GI Surgical History: Reports: Colonoscopy Female Surgical History: Reports: Dilitation & Evacuation Musculoskeletal Surgical History: Reports: Hip Replacement, Knee Replacement, Shoulder Surgery, Other (See Below) Other Musculoskeletal Surgeries/Procedures:: fusion of C6-7 Social & Family History - Family History Family Medical History: Unobtainable - Tobacco Use Smoking Status *Q: Former Smoker Used Tobacco, but Quit: Yes Month/Year Tobacco Last Used: January 04, 2020 Second Hand Smoke Exposure: Yes - Caffeine Use Caffeine Use: Reports: Coffee Caffeine Use Comment: every other day - Recreational Drug Use Recreational Drug Use: No ED ROS GENERAL - Review of Systems Review Of Systems: See Below ED EXAM, GENERAL - Physical Exam Exam: See Below EKG INTERPRETATION EKG Interpretation Comments: EKG is normal sinus rhythm rate 81 bpm normal axis normal intervals normal EKG. Interpreted by me Course - Vital Signs Text/Narrative:: One-view portable chest read interpreted by me compared to a study on April 20 of this year shows a new infiltrate in the right upper lobe consistent with pneumonia. Read and interpreted by me Patient is persistently been short of breath in spite of nebs and Decadron she also had transient hypotension that responded to a fluid bolus recommend keeping her in the hospital. A rectal exam was performed it was unremarkable Hemoccult negative Discussed the case with Dr. Regalado at 1:30 PM he will accept the patient to telemetry. Last Recorded V/S: Last Vital Signs Temp 36.4 C 06/29/20 09:28 Pulse 76 06/29/20 13:44 Resp 18 06/29/20 13:15 BP 107/49 L 06/29/20 13:44 Pulse Ox 98 06/29/20 13:44 - Orders/Labs/Meds Orders: Active Orders 24 hr Category Date Time Status EKG Documentation Completion [RC] STAT Care 06/29/20 09:27 Active RT Aerosol Therapy [RC] ASDIRECTED Care 06/29/20 09:37 Active RT Aerosol Therapy [RC] ASDIRECTED Care 06/29/20 13:14 Active CORONAVIRUS COVID-19 PCR PHL Stat Lab 06/29/20 13:31 Ordered CULTURE BLOOD [BC] Stat Lab 06/29/20 13:25 Received CULTURE BLOOD [BC] Stat Lab 06/29/20 13:35 Received Sodium Chloride 0.9% [Saline Flush] Med 06/29/20 09:26 Active 10 ml FLUSH ASDIRECTED PRN Sodium Chloride 0.9% [Saline Flush] Med 06/29/20 09:26 Active 2.5 ml FLUSH ASDIRECTED PRN Blood Culture x2 Reflex Set [OM.PC] Stat Oth 06/29/20 13:12 Ordered Saline Lock Insert [OM.PC] Stat Oth 06/29/20 09:26 Ordered Transfuse PRBC [Transfuse Red Blood Cells] [COMM] Stat Oth 06/29/20 09:35 Ordered Transfuse Platelets [COMM] Stat Oth 06/29/20 09:36 Ordered Medication Orders Sodium Chloride (Saline Flush) 10 ml FLUSH ASDIRECTED PRN PRN Reason: Keep Vein Open Last Admin: 06/29/20 10:18 Dose: 10 ml Documented by: DIONTE Sodium Chloride (Saline Flush) 2.5 ml FLUSH ASDIRECTED PRN PRN Reason: Keep Vein Open Last Admin: 06/29/20 10:18 Dose: 2.5 ml Documented by: DIONTE Labs: Laboratory Tests 06/28/20 06/29/20 06/29/20 Range/Units 09:35 09:50 09:50 WBC 1.86 L (4.0-11.0) K/uL RBC 2.01 L (4.30-5.90) M/uL Hgb 6.0 L (12.0-16.0) g/dL Hct 18.6 L (36.0-46.0) % MCV 92.5 (80.0-98.0) fL MCH 29.9 (27.0-32.0) pg MCHC 32.3 (31.0-37.0) g/dL RDW Std Deviation 71.0 H (28.0-62.0) fl RDW Coeff of Shazia 21 H (11.0-15.0) % Plt Count 5 L* (150-400) K/uL Neut % (Auto) 91.9 H (48.0-80.0) % Lymph % (Auto) 3.8 L (16.0-40.0) % [place] % (Auto) 4.3 (0.0-15.0) % Eos % (Auto) 0.0 (0.0-7.0) % Baso % (Auto) 0.0 (0.0-1.5) % Neut # (Auto) 1.7 (1.4-5.7) K/uL Lymph # (Auto) 0.1 L (0.6-2.4) K/uL [place] # (Auto) 0.1 (0.0-0.8) K/uL Eos # (Auto) 0.0 (0.0-0.7) K/uL Baso # (Auto) 0.0 (0.0-0.1) K/uL Nucleated RBC % 0.0 /100WBC Nucleated RBCs # 0 K/uL INR APTT (18.6-31.3) SEC Lactate (0.20-2.00) mmol/L Sodium 127 L (136-145) mmol/L Potassium 5.0 (3.5-5.1) mmol/L Chloride 96 L (98-107) mmol/L Carbon Dioxide 17.0 L (21.0-32.0) mmol/L BUN 37 H (7.0-18.0) mg/dL Creatinine 2.0 H (0.6-1.0) mg/dL Est Cr Clr Drug Dosing 21.00 mL/min Estimated GFR (MDRD) 24.7 ml/min Glucose 110 H (74-106) mg/dL Calcium 8.7 (8.5-10.1) mg/dL Total Bilirubin 0.4 (0.2-1.0) mg/dL AST 110 H (15-37) IU/L ALT 53 (14-63) IU/L Alkaline Phosphatase 101 (46-116) U/L Troponin I < 0.050 (0.000-0.056) ng/mL B-Natriuretic Peptide (<100) PG/ML Total Protein 6.8 (6.4-8.2) g/dL Albumin 2.5 L (3.4-5.0) g/dL Globulin 4.3 H (2.6-4.0) g/dL Albumin/Globulin Ratio 0.6 L (0.9-1.6) Blood Type A POSITIVE Antibody Screen NEGATIVE Crossmatch See Detail 06/29/20 06/29/20 06/29/20 Range/Units 09:50 09:50 13:35 WBC (4.0-11.0) K/uL RBC (4.30-5.90) M/uL Hgb (12.0-16.0) g/dL Hct (36.0-46.0) % MCV (80.0-98.0) fL MCH (27.0-32.0) pg MCHC (31.0-37.0) g/dL RDW Std Deviation (28.0-62.0) fl RDW Coeff of Shazia (11.0-15.0) % Plt Count (150-400) K/uL Neut % (Auto) (48.0-80.0) % Lymph % (Auto) (16.0-40.0) % [place] % (Auto) (0.0-15.0) % Eos % (Auto) (0.0-7.0) % Baso % (Auto) (0.0-1.5) % Neut # (Auto) (1.4-5.7) K/uL Lymph # (Auto) (0.6-2.4) K/uL [place] # (Auto) (0.0-0.8) K/uL Eos # (Auto) (0.0-0.7) K/uL Baso # (Auto) (0.0-0.1) K/uL Nucleated RBC % /100WBC Nucleated RBCs # K/uL INR 1.10 APTT 29.0 (18.6-31.3) SEC Lactate 2.7 H* (0.20-2.00) mmol/L Sodium (136-145) mmol/L Potassium (3.5-5.1) mmol/L Chloride (98-107) mmol/L Carbon Dioxide (21.0-32.0) mmol/L BUN (7.0-18.0) mg/dL Creatinine (0.6-1.0) mg/dL Est Cr Clr Drug Dosing mL/min Estimated GFR (MDRD) ml/min Glucose (74-106) mg/dL Calcium (8.5-10.1) mg/dL Total Bilirubin (0.2-1.0) mg/dL AST (15-37) IU/L ALT (14-63) IU/L Alkaline Phosphatase (46-116) U/L Troponin I (0.000-0.056) ng/mL B-Natriuretic Peptide 169 H (<100) PG/ML Total Protein (6.4-8.2) g/dL Albumin (3.4-5.0) g/dL Globulin (2.6-4.0) g/dL Albumin/Globulin Ratio (0.9-1.6) Blood Type Antibody Screen Crossmatch Meds: Medications Generic Name Dose Route Start Last Admin Trade Name Freq PRN Reason Stop Dose Admin Sodium Chloride 10 ml 06/29/20 09:26 06/29/20 10:18 Saline Flush FLUSH 10 ml ASDIRECTED PRN Administration Keep Vein Open Sodium Chloride 2.5 ml 06/29/20 09:26 06/29/20 10:18 Saline Flush FLUSH 2.5 ml ASDIRECTED PRN Administration Keep Vein Open Discontinued Medications Generic Name Dose Route Start Last Admin Trade Name Freq PRN Reason Stop Dose Admin Albuterol 10 mg 06/29/20 13:14 06/29/20 13:36 Proventil Neb Soln [facility] 06/29/20 13:15 10 mg ONETIME ONE Administration Albuterol/Ipratropium 3 ml 06/29/20 09:37 06/29/20 09:58 Duoneb 3.0-0.5 Mg/3 Ml NEB 06/29/20 09:38 3 ml ONETIME ONE Administration Dexamethasone 10 mg 06/29/20 09:37 06/29/20 10:18 Dexamethasone IVPUSH 06/29/20 09:38 10 mg ONETIME ONE Administration Furosemide 40 mg 06/29/20 09:31 06/29/20 10:18 Lasix IVPUSH 06/29/20 09:32 40 mg NOW ONE Administration Cefepime HCl 1 gm/ Premix 50 mls @ 100 mls/hr 06/29/20 13:13 IV 06/29/20 13:42 ONETIME ONE Departure - Departure Time of Disposition: 13:30 Disposition: Admitted As Inpatient 66 Condition: Fair Clinical Impression: Pneumonia, Anemia, Sepsis, Thrombocytopenia Lung cancer Qualifiers: Laterality: unspecified laterality Lung location: unspecified part of lung Qualified Code(s): C34.90 - Malignant neoplasm of unspecified part of uns pecified bronchus or lung - Discharge Information *PRESCRIPTION DRUG MONITORING PROGRAM REVIEWED*: Not Applicable *COPY OF PRESCRIPTION DRUG MONITORING REPORT IN PATIENT SIDNEY: Not Applicable Referrals: PCP,None [Primary Care Provider] - Forms: ED Department Discharge Sepsis Event Note (ED) - Evaluation Sepsis Screening Result: No Definite Risk - Focused Exam Vital Signs: Vital Signs Temp Pulse Resp BP Pulse Ox 06/29/20 13:44 76 107/49 L 98 06/29/20 13:15 74 18 107/49 L 95 06/29/20 12:09 82 17 100/43 L 93 L 06/29/20 11:40 83 15 89/35 L 90 L 06/29/20 11:18 84 78/36 L 92 L 06/29/20 10:29 90 15 102/40 L 94 L 06/29/20 09:28 36.4 C 88 18 116/78 97 - My Orders Last 24 Hours: My Active Orders 06/29/20 09:26 Sodium Chloride 0.9% [Saline Flush] 10 ml FLUSH ASDIRECTED PRN Sodium Chloride 0.9% [Saline Flush] 2.5 ml FLUSH ASDIRECTED PRN Saline Lock Insert [OM.PC] Stat 06/29/20 09:27 EKG Documentation Completion [RC] STAT 06/29/20 09:35 Transfuse PRBC [Transfuse Red Blood Cells] [COMM] Stat 06/29/20 09:36 Transfuse Platelets [COMM] Stat 06/29/20 09:37 RT Aerosol Therapy [RC] ASDIRECTED 06/29/20 13:12 Blood Culture x2 Reflex Set [OM.PC] Stat 06/29/20 13:14 RT Aerosol Therapy [RC] ASDIRECTED 06/29/20 13:25 CULTURE BLOOD [BC] Stat 06/29/20 13:31 CORONAVIRUS COVID-19 PCR PHL Stat 06/29/20 13:35 CULTURE BLOOD [BC] Stat - Assessment/Plan Last 24 Hours: My Active Orders 06/29/20 09:26 Sodium Chloride 0.9% [Saline Flush] 10 ml FLUSH ASDIRECTED PRN Sodium Chloride 0.9% [Saline Flush] 2.5 ml FLUSH ASDIRECTED PRN Saline Lock Insert [OM.PC] Stat 06/29/20 09:27 EKG Documentation Completion [RC] STAT 06/29/20 09:35 Transfuse PRBC [Transfuse Red Blood Cells] [COMM] Stat 06/29/20 09:36 Transfuse Platelets [COMM] Stat 06/29/20 09:37 RT Aerosol Therapy [RC] ASDIRECTED 06/29/20 13:12 Blood Culture x2 Reflex Set [OM.PC] Stat 06/29/20 13:14 RT Aerosol Therapy [RC] ASDIRECTED 06/29/20 13:25 CULTURE BLOOD [BC] Stat 06/29/20 13:31 CORONAVIRUS COVID-19 PCR PHL Stat 06/29/20 13:35 CULTURE BLOOD [BC] Stat
--- NOTE | 2020-06-29 10:22 | CR ---
Chest: Portable view of the chest was obtained in AP projection. Barriers: Prior chest CT study of 05/18/20. Focal parenchymal density within the upper right lung is seen. Difficult to exclude an area of pneumonia. Other lung markings are increased believed to be chronic. Heart size at the upper limits of normal. Upper mediastinum is normal. Right-sided catheter is seen which is stable. Prior cervical spine surgery is noted. Atherosclerotic calcification is noted within the aortic knob. Impression: 1. Parenchymal density with the upper right lung and difficult to exclude pneumonia. Please correlate if patient has correlating symptoms. 2. Other findings as noted above believed to be stable. Diagnostic code #3 This report was dictated in MDT
[2020-06-29 10:33] LABS: BLOOD UREA NITROGEN,BUN 37 mg/dL (7.0-18.0); CHLORIDE,CL 96 mmol/L (98-107); GLUCOSE RANDOM 110 mg/dL (74-106); SODIUM,NA 127 mmol/L (136-145)
[2020-06-29] MEDS ORDERED: Cefepime 1 GM in Premix Bag 1 BAG IV ONE (13:13)
[2020-06-29] MEDS ORDERED: Albuterol 0.5% 5 MG/ML Neb Soln 20 ML Bottle NEB ONE (13:14)
[2020-06-29] MEDS ORDERED: Acetaminophen 500 MG Tab PO ONE (15:01)
--- NOTE | 2020-06-29 17:45 | PCM.HP.2 ---
H&P History of Present Illness - General Date of Service: 06/29/20 Admit Problem/Dx: Admission Diagnosis/Problem Admission Diagnosis/Problem Pneumonia - History of Present Illness Initial Comments - Free Text/Narative: 69yr old female presents to the ICU due to weakness, SOB, fatigue and concerns over pneumonia. Pt has a history of stg 4 lung cancer being treated with chemotherapy. Patients last chemotherapy treatment was on Jun 16. Pt states that she went to the [facility] for labwork on sunday and became increasingly fatigued over the weekend. Pt is accompanied by her daughter who states that she has required blood transfusions in the past due to anemia and thrombocytopenia from chemotherapy. Patient reported to the [facility] today to receive 2 units PRBC and 1 unit platelets but due to significant weakness and SOB patient was advised to report to the ED. Pt denies fever, chills, nausea, or chest pain. Left Chest Pain Score (Numeric/FACES): 5 Lower Buttock Pain Score (Numeric/FACES): 6 - Related Data Allergies/Adverse Reactions: Allergies Allergy/AdvReac Type Severity Reaction Status Date / Time ibuprofen [From Advil] Allergy Vomiting Verified 06/29/20 17:04 ketorolac [From Toradol] Allergy Vomiting Verified 06/29/20 17:04 morphine AdvReac Intermediate Nausea and Verified 06/29/20 17:04 Vomiting oxycodone [Oxycodone] AdvReac Intermediate Nausea and Verified 06/29/20 17:04 Vomiting Quiana Anesthesia Allergy Vomiting Uncoded 06/29/20 17:04 Home Medications: Home Meds Albuterol [Proair HFA] 2 inh INH QID PRN 09/11/14 [History] Allopurinol [Zyloprim] 300 mg PO BID 04/07/20 [History] Folic Acid 1 mg PO DAILY 04/07/20 [History] HYDROmorphone [Dilaudid] 2 mg PO Q4H PRN 04/07/20 [History] LORazepam [Ativan] 1 tab PO DAILY PRN 04/07/20 [History] Omeprazole 20 mg PO ACBREAKFAST 04/07/20 [History] Vitamin B6-pyridOXINE 1 tab PO BEDTIME 04/07/20 [History] Diphenhyd/Lidocaine/Nystatin [Magic Mouthwash] 5 ml PO Q4H PRN 04/20/20 [History] Metoprolol Tartrate [Lopressor] 50 mg PO BID 04/20/20 [History] Sertraline [Zoloft] 50 mg PO BEDTIME 04/20/20 [History] Vit A/Vit C/Vit E/Zinc/Copper [Preservision] 1 tab PO BEDTIME 04/20/20 [History] amLODIPine [Norvasc] 5 mg PO DAILY 04/20/20 [History] Acetaminophen [Tylenol Extra Strength] 1,000 mg PO Q6H PRN 04/21/20 [History] Albuterol/Ipratropium [Combivent Respimat] 1 puff INH QID 05/14/20 [History] Albuterol/Ipratropium [DuoNeb 3.0-0.5 MG/3 ML] 3 ml NEB QID PRN 05/14/20 [H istory] Amiodarone [Cordarone] 200 mg PO QAM 05/14/20 [History] Ondansetron [Zofran] 4 mg PO Q4H PRN 05/14/20 [History] Prochlorperazine [Compazine] 10 mg PO Q6H PRN 05/14/20 [History] Sennosides/Docusate Sodium [Senna-S] 1 each PO BEDTIME 05/14/20 [History] Ubidecarenone [Co Q-10] 300 mg PO QAM 05/14/20 [History] Apixaban [Eliquis] 5 mg PO BID 06/29/20 [History] Furosemide 40 mg PO DAILY 06/29/20 [History] Potassium Chloride 20 meq PO WITHBREAKFAST 06/29/20 [History] Sodium Chloride 1,000 mg PO BID 06/29/20 [History] predniSONE [Prednisone] 60 mg PO DAILY 06/29/20 [History] Past Medical History HEENT History: Reports: Cataract, Impaired Vision, Macular Degeneration Cardiovascular History: Reports: Afib, Hypertension, AL, SOB on Exertion, Stents Respiratory History: 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 Endocrine/Metabolic History: Reports: Obesity/BMI 30+ Hematologic History: Reports: Anemia, Blood Transfusion(s), Idiopathic Thrombocytopenia Immunologic History: Reports: None Oncologic (Cancer) History: Reports: Lung Dermatologic History: Reports: None - Infectious Disease History Infectious Disease History: Reports: Measles, Mumps - Past Surgical History HEENT Surgical History: Reports: None Cardiovascular Surgical History: Reports: Coronary Artery Stent Other Cardiovascular Surgeries/Procedures: 2 stents- 2007 Respiratory Surgical History: Reports: None GI Surgical History: Reports: Colonoscopy Female Surgical History: Reports: Dilitation & Evacuation Musculoskeletal Surgical History: Reports: Hip Replacement, Knee Replacement, Shoulder Surgery, Other (See Below) Other Musculoskeletal Surgeries/Procedures:: fusion of C6-7 Social & Family History - Family History Family Medical History: Unobtainable - Tobacco Use Smoking Status *Q: Former Smoker Used Tobacco, but Quit: Yes Month/Year Tobacco Last Used: January 04, 2020 Second Hand Smoke Exposure: Yes - Caffeine Use Caffeine Use: Reports: Coffee Caffeine Use Comment: every other day - Recreational Drug Use Recreational Drug Use: No H&P Review of Systems - Review of Systems: Review Of Systems: See Below General: Reports: Weakness, Fatigue. Denies: Fever, Chills HEENT: Denies: Ear Pain, Headaches, Visual Changes Pulmonary: Reports: Shortness of Breath, Wheezing, Cough Cardiovascular: Reports: Dyspnea on Exertion, Edema. Denies: Chest Pain, Palpitations Gastrointestinal: Denies: Abdominal Pain, Distension, Nausea Musculoskeletal: Reports: Arm Pain (right arm/hand pain) Psychiatric: Denies: Confusion, Depression Exam - Exam Exam: See Below - Vital Signs Vital Signs: Last Vital Signs Temp 97.6 F 06/29/20 09:28 Pulse 74 06/29/20 15:27 Resp 16 06/29/20 15:27 BP 96/39 L 06/29/20 15:27 Pulse Ox 99 06/29/20 15:27 Weight: 125 lb - Exam General: Alert, Oriented HEENT: EOMI, Hearing Intact Neck: Trachea Midline Lungs: Decreased Breath Sounds (upper and lower lobes), Wheezing (left and right lower lobes). No: Clear to Auscultation Cardiovascular: Regular Rate, Regular Rhythm GI/Abdominal Exam: Soft, Non-Tender, No Distention Extremities: Pedal Edema (lower extremities) Skin: Dry, Petechia Neurological: Normal Speech Neuro Extensive - Mental Status: Alert, Oriented x3, Normal Mood/Affect Psychiatric: Alert, Normal Affect - Patient Data Lab Results Last 24 hrs: Laboratory Results - last 24 hr 06/28/20 06/29/20 06/29/20 Range/Units 09:35 09:50 09:50 WBC 1.86 L (4.0-11.0) K/uL RBC 2.01 L (4.30-5.90) M/uL Hgb 6.0 L (12.0-16.0) g/dL Hct 18.6 L (36.0-46.0) % MCV 92.5 (80.0-98.0) fL MCH 29.9 (27.0-32.0) pg MCHC 32.3 (31.0-37.0) g/dL RDW Std Deviation 71.0 H (28.0-62.0) fl RDW Coeff of Shazia 21 H (11.0-15.0) % Plt Count 5 L* (150-400) K/uL Neut % (Auto) 91.9 H (48.0-80.0) % Lymph % (Auto) 3.8 L (16.0-40.0) % Merrick % (Auto) 4.3 (0.0-15.0) % Eos % (Auto) 0.0 (0.0-7.0) % Baso % (Auto) 0.0 (0.0-1.5) % Neut # (Auto) 1.7 (1.4-5.7) K/uL Lymph # (Auto) 0.1 L (0.6-2.4) K/uL Merrick # (Auto) 0.1 (0.0-0.8) K/uL Eos # (Auto) 0.0 (0.0-0.7) K/uL Baso # (Auto) 0.0 (0.0-0.1) K/uL Nucleated RBC % 0.0 /100WBC Nucleated RBCs # 0 K/uL INR APTT (18.6-31.3) SEC Lactate (0.20-2.00) mmol/L Sodium 127 L (136-145) mmol/L Potassium 5.0 (3.5-5.1) mmol/L Chloride 96 L (98-107) mmol/L Carbon Dioxide 17.0 L (21.0-32.0) mmol/L BUN 37 H (7.0-18.0) mg/dL Creatinine 2.0 H (0.6-1.0) mg/dL Est Cr Clr Drug Dosing 21.00 mL/min Estimated GFR (MDRD) 24.7 ml/min Glucose 110 H (74-106) mg/dL Calcium 8.7 (8.5-10.1) mg/dL Total Bilirubin 0.4 (0.2-1.0) mg/dL AST 110 H (15-37) IU/L ALT 53 (14-63) IU/L Alkaline Phosphatase 101 (46-116) U/L Troponin I < 0.050 (0.000-0.056) ng/mL B-Natriuretic Peptide (<100) PG/ML Total Protein 6.8 (6.4-8.2) g/dL Albumin 2.5 L (3.4-5.0) g/dL Globulin 4.3 H (2.6-4.0) g/dL Albumin/Globulin Ratio 0.6 L (0.9-1.6) SARS Virus RNA (PCR) (NEGATIVE) Blood Type A POSITIVE Antibody Screen NEGATIVE Crossmatch See Detail 06/29/20 06/29/20 06/29/20 Range/Units 09:50 09:50 13:34 WBC (4.0-11.0) K/uL RBC (4.30-5.90) M/uL Hgb (12.0-16.0) g/dL Hct (36.0-46.0) % MCV (80.0-98.0) fL MCH (27.0-32.0) pg MCHC (31.0-37.0) g/dL RDW Std Deviation (28.0-62.0) fl RDW Coeff of Shazia (11.0-15.0) % Plt Count (150-400) K/uL Neut % (Auto) (48.0-80.0) % Lymph % (Auto) (16.0-40.0) % Merrick % (Auto) (0.0-15.0) % Eos % (Auto) (0.0-7.0) % Baso % (Auto) (0.0-1.5) % Neut # (Auto) (1.4-5.7) K/uL Lymph # (Auto) (0.6-2.4) K/uL Merrick # (Auto) (0.0-0.8) K/uL Eos # (Auto) (0.0-0.7) K/uL Baso # (Auto) (0.0-0.1) K/uL Nucleated RBC % /100WBC Nucleated RBCs # K/uL INR 1.10 APTT 29.0 (18.6-31.3) SEC Lactate (0.20-2.00) mmol/L Sodium (136-145) mmol/L Potassium (3.5-5.1) mmol/L Chloride (98-107) mmol/L Carbon Dioxide (21.0-32.0) mmol/L BUN (7.0-18.0) mg/dL Creatinine (0.6-1.0) mg/dL Est Cr Clr Drug Dosing mL/min Estimated GFR (MDRD) ml/min Glucose (74-106) mg/dL Calcium (8.5-10.1) mg/dL Total Bilirubin (0.2-1.0) mg/dL AST (15-37) IU/L ALT (14-63) IU/L Alkaline Phosphatase (46-116) U/L Troponin I (0.000-0.056) ng/mL B-Natriuretic Peptide 169 H (<100) PG/ML Total Protein (6.4-8.2) g/dL Albumin (3.4-5.0) g/dL Globulin (2.6-4.0) g/dL Albumin/Globulin Ratio (0.9-1.6) SARS Virus RNA (PCR) NEGATIVE (NEGATIVE) Blood Type Antibody Screen Crossmatch 06/29/20 Range/Units 13:35 WBC (4.0-11.0) K/uL RBC (4.30-5.90) M/uL Hgb (12.0-16.0) g/dL Hct (36.0-46.0) % MCV (80.0-98.0) fL MCH (27.0-32.0) pg MCHC (31.0-37.0) g/dL RDW Std Deviation (28.0-62.0) fl RDW Coeff of Shazia (11.0-15.0) % Plt Count (150-400) K/uL Neut % (Auto) (48.0-80.0) % Lymph % (Auto) (16.0-40.0) % Merrick % (Auto) (0.0-15.0) % Eos % (Auto) (0.0-7.0) % Baso % (Auto) (0.0-1.5) % Neut # (Auto) (1.4-5.7) K/uL Lymph # (Auto) (0.6-2.4) K/uL Merrick # (Auto) (0.0-0.8) K/uL Eos # (Auto) (0.0-0.7) K/uL Baso # (Auto) (0.0-0.1) K/uL Nucleated RBC % /100WBC Nucleated RBCs # K/uL INR APTT (18.6-31.3) SEC Lactate 2.7 H* (0.20-2.00) mmol/L Sodium (136-145) mmol/L Potassium (3.5-5.1) mmol/L Chloride (98-107) mmol/L Carbon Dioxide (21.0-32.0) mmol/L BUN (7.0-18.0) mg/dL Creatinine (0.6-1.0) mg/dL Est Cr Clr Drug Dosing mL/min Estimated GFR (MDRD) ml/min Glucose (74-106) mg/dL Calcium (8.5-10.1) mg/dL Total Bilirubin (0.2-1.0) mg/dL AST (15-37) IU/L ALT (14-63) IU/L Alkaline Phosphatase (46-116) U/L Troponin I (0.000-0.056) ng/mL B-Natriuretic Peptide (<100) PG/ML Total Protein (6.4-8.2) g/dL Albumin (3.4-5.0) g/dL Globulin (2.6-4.0) g/dL Albumin/Globulin Ratio (0.9-1.6) SARS Virus RNA (PCR) (NEGATIVE) Blood Type Antibody Screen Crossmatch Result Diagrams: 06/29/20 18:50 06/29/20 09:50 Sepsis Event Note - Evaluation Sepsis Screening Result: No Definite Risk - Focused Exam Vital Signs: Vital Signs Temp Pulse Resp BP Pulse Ox 06/29/20 15:27 74 16 96/39 L 99 06/29/20 15:12 75 16 111/48 L 97 06/29/20 14:48 76 15 88/35 L 95 06/29/20 14:22 78 15 110/43 L 94 L 06/29/20 13:44 76 107/49 L 98 06/29/20 13:15 74 18 107/49 L 95 06/29/20 12:09 82 17 100/43 L 93 L 06/29/20 11:40 83 15 89/35 L 90 L 06/29/20 11:18 84 78/36 L 92 L 06/29/20 10:29 90 15 102/40 L 94 L 06/29/20 09:28 97.6 F 88 18 116/78 97 Problem List Initiated/Reviewed/Updated: Yes Orders Last 24hrs: Active Orders 24 hr Category Date Time Status Patient Status [ADT] Routine ADT 06/29/20 14:58 Active Dietary Supplements [RC] QIDACANDBED Care 06/29/20 16:12 Active EKG Documentation Completion [RC] STAT Care 06/29/20 09:27 Active RT Aerosol Therapy [RC] ASDIRECTED Care 06/29/20 09:37 Active RT Aerosol Therapy [RC] ASDIRECTED Care 06/29/20 13:14 Active Regular Diet [DIET] Diet 06/30/20 Breakfast Active CULTURE BLOOD [BC] Stat Lab 06/29/20 13:25 Received CULTURE BLOOD [BC] Stat Lab 06/29/20 13:35 Received LACTATE SEPSIS W/ REFLEX [CHEM] Routine Lab 06/29/20 18:36 Ordered Sodium Chloride 0.9% [Saline Flush] Med 06/29/20 09:26 Active 10 ml FLUSH ASDIRECTED PRN Sodium Chloride 0.9% [Saline Flush] Med 06/29/20 09:26 Active 2.5 ml FLUSH ASDIRECTED PRN Blood Culture x2 Reflex Set [OM.PC] Stat Oth 06/29/20 13:12 Ordered Saline Lock Insert [OM.PC] Stat Oth 06/29/20 09:26 Ordered Transfuse PRBC [Transfuse Red Blood Cells] [COMM] Stat Oth 06/29/20 09:35 Ordered Transfuse Platelets [COMM] Stat Oth 06/29/20 09:36 Ordered Medication Orders Sodium Chloride (Saline Flush) 10 ml FLUSH ASDIRECTED PRN PRN Reason: Keep Vein Open Last Admin: 06/29/20 10:18 Dose: 10 ml Documented by: DIONTE Sodium Chloride (Saline Flush) 2.5 ml FLUSH ASDIRECTED PRN PRN Reason: Keep Vein Open Last Admin: 06/29/20 10:18 Dose: 2.5 ml Documented by: DIONTE Assessment/Plan Comment:: Pneumonia Pt started on cefepime 2g Qhr and Vancomycin renally dosed. Will obtain one more lactate level Anemia, Thrombocytopenia Pt given 2 units PRBC and 1 unit platelets. Goal Hgb above 7, and platelets a valarie 10. A-Fib Controlled with amiodarone 200mg AARTI- Monitor AM BMP (creatinine), hydrate as needed. Reduce all nephrotoxic agents Hyponatremia Resume pts home medication of salt chloride tablets, 1000mg. Leukopenia Most likely secondary to chemotherapy. Recommend neupogen to be started in an outpatient setting, discuss with oncology, PCP.
--- NOTE | 2020-06-29 17:51 | PN ---
THC Physician - Brief Progress UtsmMADEAVQGW34/25/2020 16:24[facility] Bubba Hernandez, DEBBI - MAHAMEDN (ALAN) - KYM JOSEMANUEL GOELDate of Service 06/29/2020 16:24HPI/Ev ents of Note eICU admission [id number] female with past medical history significant for stage IV lung cancer, A. fib, HTN and CAD status post stents who presented to hospital with abnormal labs. P eric mentions she was found to be anemic at her cancer center clinic appointment for which she was to receive 2U PRBCs and 1 unit platelet. She did however mention she has been having worsening lower extremity edema and dyspnea over the last 1 week. On arrival to the ED patient was noted to have st able vital signs. Initial lab work-up revealed leukopenia at 1.86, hemoglobin of 6.0, platelets of 5 K, elevated lactate of 2.7 and AARTI. Patient was also given Decadron, furosemide and cefepime and adm itted to the ICU for closer monitoring.Sepsis-Likely secondary to PNA-Agree with initiation of cefepi me. Will recommend also starting vancomycin at this time.-Continue to trend lactate and give IV flui d and albumin as needed-COVID testing is negative. Recommend respiratory culture, blood culture, Leg ionella/strep urine, MRSA nares-Although less likely can also consider cardiac workup with troponin/B BOW MA[employer]ER GIFT WRAPPING. If elevated can consider 2D echo. Pancytopenia-Likely secondary to ongoing chemotherapy.-Hemoglob in goal greater than 7-Recommend platelet goal of greater than 10 and if bleeding greater than 50-Can consider heme-onc consultAKI-Likely pre-renal in etiology-Recommend continued trend of creatinine, i f continues to increase recommend renal ultrasound at that time.-Strict I's and O's and avoid nephrot oxins.DVT prophy- recommend holding pharmacologic prophylaxis in the setting of severe thrombocytopen iaGI prophy- Diet orderedThank you for allowing us to participate in the care of this patient.Interve ntions Major-Acute renal failure - evaluation and management, Infection - evaluation and management, Sepsis - evaluation and management, Other: Pancytopenia
[2020-06-29] MEDS ORDERED: LORazepam 1 MG Tab PO PRN (19:41)
[2020-06-29] MEDS ORDERED: Prochlorperazine 10 MG Tab PO PRN (19:41)
[2020-06-29] MEDS ORDERED: Ondansetron 4 MG Tab PO PRN (19:41)
[2020-06-29] MEDS ORDERED: Sodium Chloride 0.9% 500 ML IV SCH (20:00)
[2020-06-29] MEDS: Albuterol HFA 18 Gm Inhaler INH PRN ×2 (20:06→23:23)
[2020-06-29] MEDS ORDERED: Sertraline 50 MG Tab PO SCH (21:00)
[2020-06-29] MEDS ORDERED: Sodium Chloride 1 GM Tab PO SCH (21:00)
--- NOTE | 2020-06-29 21:17 | PN ---
THC Physician - Brief Progress GijpZDHAWZEMU57/25/2020 21:13[facility] debra BubbaDEBBI - KYM (ALAN) - JOSEMANUEL DUMASDate of Service 06/29/2020 21:13HPI/Ev ents of Note Cefepime dose adjusted to q24h for creatinine per pharmacy recommendationRecheck BMP to see if it has improved D/w RNInterventions Major-Infection - evaluation and managementIntermediate-Di agnostic test evaluation
--- NOTE | 2020-06-29 21:41 | PCM.SN.2 ---
<Edin Pressley - Last Filed: 06/29/20 21:33> - Free Text/Narrative Note: Patients last lactate level was elevated at 2.9. NS bolus was ordered but is being held at this time due to concerns of the patient being fluid overloaded from recent transfusion of 2 units PRBC and 1 unit Platelets. Lactate level will be rechecked this evening and NS bolus fluid will be given based on results and patient presentation. Plan has been discussed with Dr Crawford. <Noelle Crawford - Last Filed: 07/01/20 10:52> - Free Text/Narrative Note: I agree with the residents note unless specified in my note
[2020-06-29] MEDS: Albuterol/Ipratropium 3.0-0.5 MG/3 ML Neb Soln NEB PRN (21:48)
[2020-06-29] MEDS ORDERED: Cefepime 2 GM in Premix Bag 1 BAG IV SCH (22:00)
[2020-06-29 22:27] LABS: POTASSIUM,K 5.4 mmol/L (3.5-5.1)
[2020-06-29] MEDS ORDERED: Sodium Polystyrene Sulfonate 15 GM/60 ML Susp 60 ML Bot PO ONE (22:46)
[2020-06-29] MEDS: Acetaminophen 500 MG Tab PO PRN (23:15)
--- NOTE | 2020-06-29 23:17 | PN ---
THC Physician - Brief Progress EgvwVLCJKAMHV60/25/2020 22:43[facility] debra [place], DEBBI - KYM (ALAN) - JOSEMANUEL DUMASDate of Service 06/29/2020 22:43HPI/Ev ents of Note K 5.4Cr 1.9Kayexalate orderedStop po potassium supplement D/w RNInterventions Major-Elec trolyte abnormality - evaluation and managementElectronically Signed by: Griffin Durán) on 2019 22:48
--- NOTE | 2020-06-30 01:18 | PN ---
THC Physician - Brief Progress PidwTIJXEDMWD54/25/2020 23:54[facility] debra [place], [place] - KYM (ALAN) - JOSEMANUEL DUMASDate of Service 06/29/2020 23:54HPI/Ev ents of Note Pain coccyx - try hydromorphone Fever - ? from neutropeniaIf fever not better to contact blood bank for any workupInterventions Intermediate-Pain - evaluation and managementElectronically S igned by: Griffin Durán) on 06/29/2020 23:56
--- NOTE | 2020-06-30 01:19 | PN ---
THC Physician - Brief Progress BqyeSSVZGGGIH27/26/2020 00:29[facility] debra [place], DEBBI - KYM (ALAN) - JOSEMANUEL DUMASDate of Service 06/30/2020 00:29HPI/Ev ents of Note LA elevatedRecheck later today BP ok per RN Check LFTOn broad abxInterventions Major-Sep sis - evaluation and management
[2020-06-30] MEDS: HYDROmorphone 1 MG/ML Syringe IVPUSH PRN ×2 (01:24→05:29)
[2020-06-30] MEDS: Albuterol/Ipratropium 4 GM Inhalation Spray INH SCH ×2 (01:24→06:17)
[2020-06-30] MEDS: Albuterol/Ipratropium 3.0-0.5 MG/3 ML Neb Soln NEB PRN ×2 (03:48→10:53)
[2020-06-30] MEDS: Albuterol HFA 18 Gm Inhaler INH PRN (03:48)
[2020-06-30 04:29] LABS: CARBON DIOXIDE,CO2 18.9 mmol/L (21.0-32.0); POTASSIUM,K 4.8 mmol/L (3.5-5.1)
--- NOTE | 2020-06-30 05:20 | PN ---
THC Physician - Brief Progress UxcrENJKHARHN64/26/2020 05:02[facility] debra Bubba, DEBBI - KYM (ALAN) - JOSEMANUEL DUMASDate of Service 06/30/2020 05:02HPI/Ev ents of Note LA 3.1 K 4.8Watch MAP - was 63 then higher Trend LABlood culture positive - on abxD/w R NInterventions Major-Sepsis - evaluation and managementElectronically Signed by: Griffin Durán) o n 06/30/2020 05:03
[2020-06-30] MEDS: Acetaminophen 500 MG Tab PO PRN ×2 (05:27→15:06)
[2020-06-30] MEDS ORDERED: Albumin 25% 12.5 GM/50 ML BAG IV ONE ×3 (06:43→10:43)
--- NOTE | 2020-06-30 07:20 | PN ---
THC Physician - Brief Progress PnjoIDKHGEIWQ38/26/2020 06:07 debra [place], [place] - KYM (ALAN) - JOSEMANUEL DUMASDate of Service 06/30/2020 06:07HPI/Ev ents of Note Neutropenic diet orderedInterventions Minor-Routine modifications to care plan (e.g. PRN medications for pain, fever)
[2020-06-30] MEDS ORDERED: Omeprazole 20 MG Cap.CR PO SCH (07:30)
[2020-06-30] MEDS: Pantoprazole 40 MG in Sodium Chloride 0.9% 10 ML IV SCH ×2 (07:58→10:34)
[2020-06-30] MEDS ORDERED: Potassium Chloride 20 MEQ Tab.ER PO SCH (08:00)
[2020-06-30] MEDS ORDERED: Amiodarone 200 MG Tab PO SCH (09:00)
[2020-06-30] MEDS ORDERED: Folic Acid 1 MG Tab PO SCH (09:00)
[2020-06-30] MEDS ORDERED: predniSONE 20 MG Tab PO SCH (09:00)
[2020-06-30] MEDS ORDERED: predniSONE 20 MG Tab ONE (09:16)
--- NOTE | 2020-06-30 09:49 | PN ---
THC Physician - Brief Progress [id number]/26/2020 09:48[facility] Bubba Hernandez, DEBBI - MWN (JUVEN) [facility] LUKEDate of Service 06/30/2020 09:48HPI/Ev ents of Note eICU Progress [id number] admitted for sepsis and pancytopenia. History obtained primarily f rom review of EMR.Camera exam: Laying in bed. Vitals monitor reviewed.eICU Impression and Recommendat ions:Sepsis, attributed to pneumoniaPancytopenia, suspect related to chemotherapyAcute kidney injury, suspect pre-renal in etiologyContinue antibioticsIV fluids to target euvolemia, continue to trend la ctate until normalizedStrict I/O, avoid nephrotoxinsBlood cultures drawn, await resultsRecommend limi ting acetaminophen dose to <4g/24 hours, especially in light of transaminitisDVT and GI prophylaxis a s appropriate.Thank you for allowing us to participate in the care of this patient.The above note tra nscribed with the assistance of dictation software. Please excuse any errors.Interventions Major-Acut e renal failure - evaluation and management, Sepsis - evaluation and management
[2020-06-30] MEDS ORDERED: Lactated Ringers 250 ML IV ONE (09:57)
[2020-06-30] MEDS ORDERED: Lactated Ringers 250 ML IV SCH (12:45)
[2020-06-30] MEDS ORDERED: Albuterol/Ipratropium 3.0-0.5 MG/3 ML Neb Soln NEB SCH (14:00)
[2020-06-30] MEDS ORDERED: Cefepime 2 GM in Premix Bag 1 BAG IV SCH (14:00)
--- NOTE | 2020-06-30 19:01 | PCM.DCSUM1 ---
<Edin Pressley - Last Filed: 06/30/20 18:29> Discharge Summary - Hospital Course Free Text/Narrative:: 69yr old female admitted to the ICU for severe anemia, thrombocytopenia and sepsis secondary to pneumonia. Patient has a history of Stg 4 lung cancer, A- Fib, CAD. Patients last chemotherapy treatment was on Jun 16. Pt states that she went to the [facility] [place] for lab work and found to have an HgB of 6 and Platelets of 5000. Patient was scheduled to receive 2 units PRBC and 1 unit Platelets at her cancer center appointment but was noted to have SOB, worsening lower extremity edema and significant weakness and was advised to go to the ED. On admission pt did receive 2 units PRBC, 1 unit platelets and started on cefepime and vancomycin. Patient remained hypotensive after (2) 250ml LR bolus and blood products. Patient was started on norepinephrine drip given through a peripheral line as a central line could not be placed due to her low platelet count of 21,000. Patient was transferred to [facility] for more blood products, central line placement and further support of her sepsis and hypotension. Diagnosis: Stroke: No - Discharge Data Discharge Date: 06/30/20 Discharge Disposition: DC/Tfer to Acute Hospital 02 Condition: Stable - Referral to Home Health Primary Care Physician: PCP None - Discharge Plan *PRESCRIPTION DRUG MONITORING PROGRAM REVIEWED*: Not Applicable *COPY OF PRESCRIPTION DRUG MONITORING REPORT IN PATIENT SIDNEY: Not Applicable Home Medications: Home Meds Albuterol [Proair HFA] 2 inh INH QID PRN 09/11/14 [History] Allopurinol [Zyloprim] 300 mg PO BID 04/07/20 [History] Folic Acid 1 mg PO DAILY 04/07/20 [History] HYDROmorphone [Dilaudid] 2 mg PO Q4H PRN 04/07/20 [History] LORazepam [Ativan] 1 tab PO DAILY PRN 04/07/20 [History] Omeprazole 20 mg PO ACBREAKFAST 04/07/20 [History] Vitamin B6-pyridOXINE 1 tab PO BEDTIME 04/07/20 [History] Diphenhyd/Lidocaine/Nystatin [Magic Mouthwash] 5 ml PO Q4H PRN 04/20/20 [History] Metoprolol Tartrate [Lopressor] 50 mg PO BID 04/20/20 [History] Sertraline [Zoloft] 50 mg PO BEDTIME 04/20/20 [History] Vit A/Vit C/Vit E/Zinc/Copper [Preservision] 1 tab PO BEDTIME 04/20/20 [History] amLODIPine [Norvasc] 5 mg PO DAILY 04/20/20 [History] Acetaminophen [Tylenol Extra Strength] 1,000 mg PO Q6H PRN 04/21/20 [History] Albuterol/Ipratropium [Combivent Respimat] 1 puff INH QID 05/14/20 [History] Albuterol/Ipratropium [DuoNeb 3.0-0.5 MG/3 ML] 3 ml NEB QID PRN 05/14/20 [History] Amiodarone [Cordarone] 200 mg PO QAM 05/14/20 [History] Ondansetron [Zofran] 4 mg PO Q4H PRN 05/14/20 [History] Prochlorperazine [Compazine] 10 mg PO Q6H PRN 05/14/20 [History] Sennosides/Docusate Sodium [Senna-S] 1 each PO BEDTIME 05/14/20 [History] Ubidecarenone [Co Q-10] 300 mg PO QAM 05/14/20 [History] Apixaban [Eliquis] 5 mg PO BID 06/29/20 [History] Furosemide 40 mg PO DAILY 06/29/20 [History] Potassium Chloride 20 meq PO WITHBREAKFAST 06/29/20 [History] Sodium Chloride 1,000 mg PO BID 06/29/20 [History] predniSONE [Prednisone] 60 mg PO DAILY 06/29/20 [History] Forms: ED Department Discharge Referrals: PCP,None [Primary Care Provider] - - Discharge Summary/Plan Comment DC Time >30 min.: Yes (Transfer planning to [facility]) - Review of Systems General: Reports: Weakness, Fatigue HEENT: Denies: Headaches, Visual Changes Pulmonary: Reports: Shortness of Breath, Wheezing Cardiovascular: Reports: Dyspnea on Exertion, Orthopnea, Edema Gastrointestinal: Reports: Decreased Appetite. Denies: Abdominal Pain, Nausea, Vomiting Neurological: Denies: Confusion, Dizziness, Headache, Numbness - Patient Data Vitals - Most Recent: Last Vital Signs Temp 98.1 F 06/30/20 11:23 Pulse 82 06/30/20 08:46 Resp 12 06/30/20 11:23 BP 127/56 L 06/30/20 11:23 Pulse Ox 94 L 06/30/20 11:23 Weight - Most Recent: 56.699 kg I&O - Last 24 hours: Intake & Output 06/30/20 06/30/20 06/30/20 06:59 14:59 22:59 Intake Total 477 Output Total 1000 Balance -523 Lab Results - Last 24 hrs: Laboratory Results - last 24 hr 06/28/20 06/29/20 06/29/20 Range/Units 09:35 18:43 18:50 WBC 1.62 L (4.0-11.0) K/uL RBC 2.73 L (4.30-5.90) M/uL Hgb 8.3 L (12.0-16.0) g/dL Hct 24.3 L (36.0-46.0) % MCV 89.0 (80.0-98.0) fL MCH 30.4 (27.0-32.0) pg MCHC 34.2 (31.0-37.0) g/dL RDW Std Deviation 60.6 (28.0-62.0) fl RDW Coeff of Shazia 19 H (11.0-15.0) % Plt Count 4 L* (150-400) K/uL MPV (7.40-12.00) fL Add Manual Diff YES Neutrophils % (Manual) 91 H (48.0-80.0) % Band Neutrophils % 1 % Lymphocytes % (Manual) 3 L (16.0-40.0) % Monocytes % (Manual) 5 (0.0-15.0) % Myelocytes % % Nucleated RBC % 0.0 /100WBC Absolute Seg Neuts 1.5 (1.4-5.7) Band Neutrophils # 0 Lymphocytes # (Manual) 0.0 L (0.6-2.4) Monocytes # (Manual) 0.1 (0.0-0.8) Absolute Myelocytes Nucleated RBCs # 0 K/uL Lactate 2.9 H* (0.20-2.00) mmol/L Sodium (136-145) mmol/L Potassium (3.5-5.1) mmol/L Chloride (98-107) mmol/L Carbon Dioxide (21.0-32.0) mmol/L BUN (7.0-18.0) mg/dL Creatinine (0.6-1.0) mg/dL Est Cr Clr Drug Dosing mL/min Estimated GFR (MDRD) ml/min Glucose (74-106) mg/dL Calcium (8.5-10.1) mg/dL GGT (5-85) U/L AST (15-37) IU/L ALT (14-63) IU/L Blood Type A POSITIVE Antibody Screen NEGATIVE Crossmatch See Detail 06/29/20 06/29/20 06/29/20 Range/Units 22:00 23:30 23:30 WBC (4.0-11.0) K/uL RBC (4.30-5.90) M/uL Hgb (12.0-16.0) g/dL Hct (36.0-46.0) % MCV (80.0-98.0) fL MCH (27.0-32.0) pg MCHC (31.0-37.0) g/dL RDW Std Deviation (28.0-62.0) fl RDW Coeff of Shazia (11.0-15.0) % Plt Count (150-400) K/uL MPV (7.40-12.00) fL Add Manual Diff Neutrophils % (Manual) (48.0-80.0) % Band Neutrophils % % Lymphocytes % (Manual) (16.0-40.0) % Monocytes % (Manual) (0.0-15.0) % Myelocytes % % Nucleated RBC % /100WBC Absolute Seg Neuts (1.4-5.7) Band Neutrophils # Lymphocytes # (Manual) (0.6-2.4) Monocytes # (Manual) (0.0-0.8) Absolute Myelocytes Nucleated RBCs # K/uL Lactate 3.4 H* (0.20-2.00) mmol/L Sodium 128 L (136-145) mmol/L Potassium 5.4 H (3.5-5.1) mmol/L Chloride 96 L (98-107) mmol/L Carbon Dioxide 18.0 L (21.0-32.0) mmol/L BUN 44 H (7.0-18.0) mg/dL Creatinine 1.9 H (0.6-1.0) mg/dL Est Cr Clr Drug Dosing 22.61 mL/min Estimated GFR (MDRD) 26.2 ml/min Glucose 131 H (74-106) mg/dL Calcium 8.9 (8.5-10.1) mg/dL GGT 84 (5-85) U/L AST 102 H (15-37) IU/L ALT 67 H (14-63) IU/L Blood Type Antibody Screen Crossmatch 06/30/20 06/30/20 06/30/20 Range/Units 04:06 04:06 04:06 WBC 1.03 L (4.0-11.0) K/uL RBC 2.61 L (4.30-5.90) M/uL Hgb 7.7 L (12.0-16.0) g/dL Hct 23.0 L (36.0-46.0) % MCV 88.1 (80.0-98.0) fL MCH 29.5 (27.0-32.0) pg MCHC 33.5 (31.0-37.0) g/dL RDW Std Deviation 62.1 H (28.0-62.0) fl RDW Coeff of Shazia 20 H (11.0-15.0) % Plt Count 21 L (150-400) K/uL MPV 10.00 (7.40-12.00) fL Add Manual Diff YES Neutrophils % (Manual) 75 (48.0-80.0) % Band Neutrophils % 17 % Lymphocytes % (Manual) 2 L (16.0-40.0) % Monocytes % (Manual) 5 (0.0-15.0) % Myelocytes % 1 % Nucleated RBC % 0.0 /100WBC Absolute Seg Neuts 0.8 L (1.4-5.7) Band Neutrophils # 0.2 Lymphocytes # (Manual) 0.0 L (0.6-2.4) Monocytes # (Manual) 0.1 (0.0-0.8) Absolute Myelocytes 0 Nucleated RBCs # 0 K/uL Lactate 3.1 H* (0.20-2.00) mmol/L Sodium 131 L (136-145) mmol/L Potassium 4.8 (3.5-5.1) mmol/L Chloride 99 (98-107) mmol/L Carbon Dioxide 18.9 L (21.0-32.0) mmol/L BUN 45 H (7.0-18.0) mg/dL Creatinine 1.8 H (0.6-1.0) mg/dL Est Cr Clr Drug Dosing 23.86 mL/min Estimated GFR (MDRD) 27.9 ml/min Glucose 139 H (74-106) mg/dL Calcium 8.7 (8.5-10.1) mg/dL GGT (5-85) U/L AST (15-37) IU/L ALT (14-63) IU/L Blood Type Antibody Screen Crossmatch 06/30/20 06/30/20 Range/Units 09:05 14:36 WBC (4.0-11.0) K/uL RBC (4.30-5.90) M/uL Hgb (12.0-16.0) g/dL Hct (36.0-46.0) % MCV (80.0-98.0) fL MCH (27.0-32.0) pg MCHC (31.0-37.0) g/dL RDW Std Deviation (28.0-62.0) fl RDW Coeff of Shazia (11.0-15.0) % Plt Count (150-400) K/uL MPV (7.40-12.00) fL Add Manual Diff Neutrophils % (Manual) (48.0-80.0) % Band Neutrophils % % Lymphocytes % (Manual) (16.0-40.0) % Monocytes % (Manual) (0.0-15.0) % Myelocytes % % Nucleated RBC % /100WBC Absolute Seg Neuts (1.4-5.7) Band Neutrophils # Lymphocytes # (Manual) (0.6-2.4) Monocytes # (Manual) (0.0-0.8) Absolute Myelocytes Nucleated RBCs # K/uL Lactate 3.6 H* 3.3 H* (0.20-2.00) mmol/L Sodium (136-145) mmol/L Potassium (3.5-5.1) mmol/L Chloride (98-107) mmol/L Carbon Dioxide (21.0-32.0) mmol/L BUN (7.0-18.0) mg/dL Creatinine (0.6-1.0) mg/dL Est Cr Clr Drug Dosing mL/min Estimated GFR (MDRD) ml/min Glucose (74-106) mg/dL Calcium (8.5-10.1) mg/dL GGT (5-85) U/L AST (15-37) IU/L ALT (14-63) IU/L Blood Type Antibody Screen Crossmatch [facility] Results - Last 24 hrs: Microbiology 06/29/20 13:25 Aerobic Blood Culture - Preliminary Blood - Venous Anaerobic Blood Culture - Preliminary 06/29/20 13:35 Aerobic Blood Culture - Preliminary Blood - Venous - Lab Draw Anaerobic Blood Culture - Preliminary Med Orders - Current: Current Medications Acetaminophen (Tylenol Extra Strength) 1,000 mg PO Q6H PRN PRN Reason: Pain Last Admin: 06/30/20 15:06 Dose: 1,000 mg Documented by: Albuterol (Ventolin Hfa) 0 gm INH QID PRN PRN Reason: Shortness of Breath Last Admin: 06/30/20 03:48 Dose: 1 inhalation Documented by: Albuterol/Ipratropium (Duoneb 3.0-0.5 Mg/3 Ml) 3 ml NEB QID PRN PRN Reason: SHORTNESS OF BREATH Last Admin: 06/30/20 10:53 Dose: 3 ml Documented by: Albuterol/Ipratropium (Duoneb 3.0-0.5 Mg/3 Ml) 3 ml NEB Q4HRRT [facility] Last Admin: 06/30/20 13:48 Dose: 3 ml Documented by: Amiodarone HCl (Cordarone) 200 mg PO QAM [facility] Last Admin: 06/30/20 09:11 Dose: 200 mg Documented by: Folic Acid (Folic Acid) 1 mg PO DAILY [facility] Last Admin: 06/30/20 09:11 Dose: 1 mg Documented by: Sodium Chloride (Normal Saline) 500 mls @ 500 mls/hr IV .BOLUS [facility] Cefepime HCl 2 gm/ Premix 50 mls @ 100 mls/hr IV Q24H [facility] Last Admin: 06/30/20 15:05 Dose: 100 mls/hr Documented by: Pantoprazole Sodium 40 mg/ (Sodium Chloride) 10 mls @ 300 mls/hr IV DAILY [facility] Last Admin: 06/30/20 10:34 Dose: Not Given Documented by: Vancomycin HCl 1 gm/ Sodium (Chloride) 250 mls @ 166.667 mls/hr IV Q24H [facility] Lactated Ringer's (Ringers, Lactated) 250 mls @ 999 mls/hr IV ASDIRECTED [facility] Norepinephrine Bitartrate (Norepinephr-0.9% Nacl 4 Mg/250) 4 mg in 250 mls @ 7.5 mls/hr IV TITRATE [facility]; Protocol Last Titration: 06/30/20 13:52 Dose: 4 mcg/min, 15 mls/hr Documented by: Lorazepam (Ativan) 1 mg PO DAILY PRN PRN Reason: Anxiety Ondansetron HCl (Zofran) 4 mg PO Q4H PRN PRN Reason: Nausea Last Admin: 06/30/20 05:27 Dose: 4 mg Documented by: Prednisone (Prednisone) 60 mg PO DAILY [facility] Last Admin: 06/30/20 09:11 Dose: 60 mg Documented by: Prochlorperazine Maleate (Compazine) 10 mg PO Q6H PRN PRN Reason: Nausea Senna/Docusate Sodium (Senna Plus) 1 tab PO BEDTIME [facility] Last Admin: 06/29/20 21:48 Dose: 1 tab Documented by: Sertraline HCl (Zoloft) 50 mg PO BEDTIME [facility] Last Admin: 06/29/20 21:48 Dose: 50 mg Documented by: Sodium Chloride (Saline Flush) 10 ml FLUSH ASDIRECTED PRN PRN Reason: Keep Vein Open Last Admin: 06/29/20 10:18 Dose: 10 ml Documented by: Sodium Chloride (Saline Flush) 2.5 ml FLUSH ASDIRECTED PRN PRN Reason: Keep Vein Open Last Admin: 06/29/20 10:18 Dose: 2.5 ml Documented by: Sodium Chloride (Sodium Chloride) 1 gm PO BID [facility] Last Admin: 06/29/20 22:13 Dose: 1 gm Documented by: Vancomycin HCl (Pharmacy To Dose - Vancomycin) 1 dose .XX ASDIRECTED [facility] Discontinued Medications Acetaminophen (Tylenol Extra Strength) 1,000 mg PO ONETIME ONE Stop: 06/29/20 15:02 Last Admin: 06/29/20 15:06 Dose: 1,000 mg Documented by: Albuterol (Proventil Neb Soln) 10 mg NEB ONETIME ONE Stop: 06/29/20 13:15 Last Admin: 06/29/20 13:36 Dose: 10 mg Documented by: Albuterol/Ipratropium (Duoneb 3.0-0.5 Mg/3 Ml) 3 ml NEB ONETIME ONE Stop: 06/29/20 09:38 Last Admin: 06/29/20 09:58 Dose: 3 ml Documented by: Albuterol/Ipratropium (Combivent Respimat) 0 gm INH QID [facility] Last Admin: 06/30/20 06:17 Dose: Not Given Documented by: Dexamethasone (Dexamethasone) 10 mg IVPUSH ONETIME ONE Stop: 06/29/20 09:38 Last Admin: 06/29/20 10:18 Dose: 10 mg Documented by: Furosemide (Lasix) 40 mg IVPUSH NOW ONE Stop: 06/29/20 09:32 Last Admin: 06/29/20 10:18 Dose: 40 mg Documented by: Hydromorphone HCl (Dilaudid) 0.5 mg IVPUSH Q1H PRN PRN Reason: Pain Last Admin: 06/30/20 05:29 Dose: 0.5 mg Documented by: Cefepime HCl 1 gm/ Premix 50 mls @ 100 mls/hr IV ONETIME ONE Stop: 06/29/20 13:42 Last Admin: 06/29/20 13:55 Dose: 100 mls/hr Documented by: Cefepime HCl 2 gm/ Premix 50 mls @ 100 mls/hr IV Q8H [facility] Vancomycin HCl 0.75 gm/ Sodium (Chloride) 250 mls @ 166.667 mls/hr IV Q48H [facility] Last Admin: 06/29/20 22:00 Dose: 166.667 mls/hr Documented by: Albumin Human (Flexbumin 25%) 12.5 gm in 50 mls @ 100 mls/hr IV ONETIME ONE Stop: 06/30/20 08:14 Last Admin: 06/30/20 07:57 Dose: 100 mls/hr Documented by: Lactated Ringer's (Ringers, Lactated) 250 mls @ 999 mls/hr IV .BOLUS ONE Stop: 06/30/20 10:12 Last Admin: 06/30/20 10:30 Dose: 999 mls/hr Documented by: Albumin Human (Flexbumin 25%) 12.5 gm in 50 mls @ 100 mls/hr IV ONETIME ONE Stop: 06/30/20 11:12 Last Admin: 06/30/20 11:11 Dose: 100 mls/hr Documented by: Omeprazole (Omeprazole) 20 mg PO ACBREAKFAST [facility] Potassium Chloride (Klor-Con M20) 20 meq PO WITHBREAKFAST [facility] Prednisone (Prednisone) Confirm Administered Dose 40 mg .ROUTE .STK-MED ONE Stop: 06/30/20 09:17 Last Admin: 06/30/20 09:16 Dose: 40 mg Documented by: Sodium Polystyrene Sulfonate (Kayexalate) 15 gm PO ONETIME ONE Stop: 06/29/20 22:47 Last Admin: 06/29/20 23:13 Dose: 15 gm Documented by: - Exam General: Reports: Alert, Oriented, Cooperative, Moderate Distress HEENT: Reports: EOMI Neck: Reports: Trachea Midline Lungs: Reports: Decreased Breath Sounds, Wheezing Cardiovascular: Reports: Irregular Rhythm, Tachycardia GI/Abdominal Exam: Soft, Non-Tender, No Distention Extremities: Pedal Edema Skin: Reports: Warm, Dry Neurological: Reports: Normal Speech Psy/Mental Status: Reports: Normal Affect, Normal Mood <Ty,Hooria - Last Filed: 07/01/20 11:07> Discharge Summary - Hospital Course Free Text/Narrative:: I have seen and evaluated the patient and agree with the residents note unless specified in my note - Referral to Home Health Primary Care Physician: PCP None - Patient Data Vitals - Most Recent: Last Vital Signs Temp 36.7 C 06/30/20 11:23 Pulse 82 06/30/20 08:46 Resp 12 06/30/20 11:23 BP 127/56 L 06/30/20 11:23 Pulse Ox 94 L 06/30/20 11:23 Lab Results - Last 24 hrs: Laboratory Results - last 24 hr 06/30/20 Range/Units 14:36 Lactate 3.3 H* (0.20-2.00) mmol/L [facility] Results - Last 24 hrs: Microbiology 06/29/20 13:35 Aerobic Blood Culture - Final Blood - Venous - Lab Draw Anaerobic Blood Culture - Final 06/29/20 13:25 Aerobic Blood Culture - Final Blood - Venous Staphylococcus Aureus Anaerobic Blood Culture - Final Med Orders - Current: Current Medications Discontinued Medications Acetaminophen (Tylenol Extra Strength) 1,000 mg PO ONETIME ONE Stop: 06/29/20 15:02 Last Admin: 06/29/20 15:06 Dose: 1,000 mg Documented by: Acetaminophen (Tylenol Extra Strength) 1,000 mg PO Q6H PRN PRN Reason: Pain Last Admin: 06/30/20 15:06 Dose: 1,000 mg Documented by: Albuterol (Proventil Neb Soln) 10 mg NEB ONETIME ONE Stop: 06/29/20 13:15 Last Admin: 06/29/20 13:36 Dose: 10 mg Documented by: Albuterol (Ventolin Hfa) 0 gm INH QID PRN PRN Reason: Shortness of Breath Last Admin: 06/30/20 03:48 Dose: 1 inhalation Documented by: Albuterol/Ipratropium (Duoneb 3.0-0.5 Mg/3 Ml) 3 ml NEB ONETIME ONE Stop: 06/29/20 09:38 Last Admin: 06/29/20 09:58 Dose: 3 ml Documented by: Albuterol/Ipratropium (Combivent Respimat) 0 gm INH QID [facility] Last Admin: 06/30/20 06:17 Dose: Not Given Documented by: Albuterol/Ipratropium (Duoneb 3.0-0.5 Mg/3 Ml) 3 ml NEB QID PRN PRN Reason: SHORTNESS OF BREATH Last Admin: 06/30/20 10:53 Dose: 3 ml Documented by: Albuterol/Ipratropium (Duoneb 3.0-0.5 Mg/3 Ml) 3 ml NEB Q4HRRT [facility] Last Admin: 06/30/20 13:48 Dose: 3 ml Documented by: Amiodarone HCl (C[facility]) [facility] Admin: 06/30/20 09:11 Dose: 200 mg Documented by: Dexamethasone (Dexamethasone) 10 mg IVPUSH ONETIME ONE Stop: 06/29/20 09:38 Last Admin: 06/29/20 10:18 Dose: 10 mg Documented by: Folic Acid (Folic Acid) 1 mg PO DAILY [facility] Last Admin: 06/30/20 09:11 Dose: 1 mg Documented by: Furosemide (Lasix) 40 mg IVPUSH NOW ONE Stop: 06/29/20 09:32 Last Admin: 06/29/20 10:18 Dose: 40 mg Documented by: Hydromorphone HCl (Dilaudid) 0.5 mg IVPUSH Q1H PRN PRN Reason: Pain Last Admin: 06/30/20 05:29 Dose: 0.5 mg Documented by: Cefepime HCl 1 gm/ Premix 50 mls @ 100 mls/hr IV ONETIME ONE Stop: 06/29/20 13:42 Last Admin: 06/29/20 13:55 Dose: 100 mls/hr Documented by: Cefepime HCl 2 gm/ Premix 50 mls @ 100 mls/hr IV Q8H [facility] Vancomycin HCl 0.75 gm/ Sodium (Chloride) 250 mls @ 166.667 mls/hr IV Q48H [facility] Last Admin: 06/29/20 22:00 Dose: 166.667 mls/hr Documented by: Sodium Chloride (Normal Saline) 500 mls @ 500 mls/hr IV .BOLUS [facility] Cefepime HCl 2 gm/ Premix 50 mls @ 100 mls/hr IV Q24H [facility] Last Admin: 06/30/20 15:05 Dose: 100 mls/hr Documented by: Pantoprazole Sodium 40 mg/ (Sodium Chloride) 10 mls @ 300 mls/hr IV DAILY [facility] Last Admin: 06/30/20 10:34 Dose: Not Given Documented by: Albumin Human (Flexbumin 25%) 12.5 gm in 50 mls @ 100 mls/hr IV ONETIME ONE Stop: 06/30/20 08:14 Last Admin: 06/30/20 07:57 Dose: 100 mls/hr Documented by: Vancomycin HCl 1 gm/ Sodium (Chloride) 250 mls @ 166.667 mls/hr IV Q24H [facility] Lactated Ringer's (Ringers, Lactated) 250 mls @ 999 mls/hr IV .BOLUS ONE Stop: 06/30/20 10:12 Last Admin: 06/30/20 10:30 Dose: 999 mls/hr Documented by: Albumin Human (Flexbumin 25%) 12.5 gm in 50 mls @ 100 mls/hr IV ONETIME ONE Stop: 06/30/20 11:12 Last Admin: 06/30/20 11:11 Dose: 100 mls/hr Documented by: Lactated Ringer's (Ringers, Lactated) 250 mls @ 999 mls/hr IV ASDIRECTED [facility] Norepinephrine Bitartrate (Norepinephr-0.9% Nacl 4 Mg/250) 4 mg in 250 mls @ 7.5 mls/hr IV TITRATE [facility]; Protocol Last Titration: 06/30/20 13:52 Dose: 4 mcg/min, 15 mls/hr Documented by: Lorazepam (Ativan) 1 mg PO DAILY PRN PRN Reason: Anxiety Omeprazole (Omeprazole) 20 mg PO ACBREAKFAST [facility] Ondansetron HCl (Zofran) 4 mg PO Q4H PRN PRN Reason: Nausea Last Admin: 06/30/20 05:27 Dose: 4 mg Documented by: Potassium Chloride (Klor-Con M20) 20 meq PO WITHBREAKFAST [facility] Prednisone (Prednisone) 60 mg PO DAILY [facility] Last Admin: 06/30/20 09:11 Dose: 60 mg Documented by: Prednisone (Prednisone) Confirm Administered Dose 40 mg .ROUTE .STK-MED ONE Stop: 06/30/20 09:17 Last Admin: 06/30/20 09:16 Dose: 40 mg Documented by: Prochlorperazine Maleate (Compazine) 10 mg PO Q6H PRN PRN Reason: Nausea Senna/Docusate Sodium (Senna Plus) 1 tab PO BEDTIME [facility] Last Admin: 06/29/20 21:48 Dose: 1 tab Documented by: Sertraline HCl (Zoloft) 50 mg PO BEDTIME [facility] Last Admin: 06/29/20 21:48 Dose: 50 mg Documented by: Sodium Chloride (Saline Flush) 10 ml FLUSH ASDIRECTED PRN PRN Reason: Keep Vein Open Last Admin: 06/29/20 10:18 Dose: 10 ml Documented by: Sodium Chloride (Saline Flush) 2.5 ml FLUSH ASDIRECTED PRN PRN Reason: Keep Vein Open Last Admin: 06/29/20 10:18 Dose: 2.5 ml Documented by: Sodium Chloride (Sodium Chloride) 1 gm PO BID [facility] Last Admin: 06/29/20 22:13 Dose: 1 gm Documented by: Sodium Polystyrene Sulfonate (Kayexalate) 15 gm PO ONETIME ONE Stop: 06/29/20 22:47 Last Admin: 06/29/20 23:13 Dose: 15 gm Documented by: Vancomycin HCl (Pharmacy To Dose - Vancomycin) 1 dose .XX ASDIRECTED [facility]
== END 2020-06-30 16:36 | DRG 871 ==
LOC: MW.ED 09:16 → MW.ICU 15:32
PROVIDERS: ADMIT Internal Medicine; ATTEND Internal Medicine
DX: A41.9 Sepsis, unspecified organism (principal); J18.9 Pneumonia, unspecified organism; D61.810 Antineoplastic chemotherapy induced pancytopenia; D69.3 Immune thrombocytopenic purpura; N17.9 Acute kidney failure, unspecified; E87.1 Hypo-osmolality and hyponatremia; H35.30 Unspecified macular degeneration; C34.90 Malignant neoplasm of unspecified part of unspecified bronchus or lung; I48.91 Unspecified atrial fibrillation; I10 Essential (primary) hypertension; Z20.828 Contact with and (suspected) exposure to other viral communicable diseases; Q89.9 Congenital malformation, unspecified; J44.9 Chronic obstructive pulmonary disease, unspecified; K21.9 Gastro-esophageal reflux disease without esophagitis; F41.9 Anxiety disorder, unspecified; D64.9 Anemia, unspecified; H26.9 Unspecified cataract; E66.9 Obesity, unspecified; H54.7 Unspecified visual loss; Z88.4 Allergy status to anesthetic agent; Z88.8 Allergy status to other drugs, medicaments and biological substances; Z96.649 Presence of unspecified artificial hip joint; Z96.659 Presence of unspecified artificial knee joint; D69.6 Thrombocytopenia, unspecified; T45.1X5A Adverse effect of antineoplastic and immunosuppressive drugs, initial encounter; Z88.5 Allergy status to narcotic agent; Z88.6 Allergy status to analgesic agent; Z79.899 Other long term (current) drug therapy; I25.2 Old myocardial infarction; Z87.891 Personal history of nicotine dependence; Z95.5 Presence of coronary angioplasty implant and graft
CPT/HCPCS: 36415 ×2; 71045; 80053; 83605; 83880; 84484; 85025; 85610; 85730; 87040 ×2; 93005; 94640; A9270; J0692; J1100; J1940; U0002; 80048; 82977; 84450; 84460; 87077; 87186; 96365; 96375; 99285-25; C9113; J1170; J3370; J3535-GY; J7050; J7120; J7620-GY; P9037; P9047